=== PATIENT | female | born 1935 | race Caucasian/White ===

== ENCOUNTER → 2016-04-07 | Outpatient (CLI) | payer MEDICARE, OTHER ==
[~2016-04-07] MED LIST: ASPI81TA27 PO; CETI10TA57 PO; FAM20T PO; FERR325T50 PO; FURO20TA PO; INSLISPI SC; INSUINJ2 SC; METO25TA5 PO; MULTCAP45 PO; SIMV80TA73 PO
[2016-04-07 12:15] LABS: DEFINITIVE VIEW TRANSMISSION; Hematocrit 34.6 % (36.0-46.0); Hemoglobin 11.1 g/dL (12.2-16.2); Mean Corpuscular Hgb Conc. 32.1 g/dL (32.0-36.0); Mean Corpuscular Volume 90.4 fL (80.0-100.0); Mean Platelet Volume 11.1 fL (7.4-10.4); Platelet Count (auto) 151 10^3/uL (140-450); Red Cell Distribution Width 17.2 % (11.6-16.0); White Blood Cell 4.9 10^3/uL (4.4-10.8)
[2016-04-07 12:38] LABS: Metamyelocytes % 0; Myelocytes % 0; Promyelocytes % 0; Reactive Lymphocytes 0
[2016-04-07 12:48] LABS: Bilirubin, Direct 0.2 mg/dL (0-0.2); Bilirubin, Total 0.6 mg/dL (0.2-1.0); Total Protein 6.3 g/dL (6.4-8.2)
[2016-04-07 17:55] LABS: Giant Platelets Few; Platelet Estimate Adequate
== END | disposition home or self-care (01) ==
LOC: CHF HDHVI 09:14
PROVIDERS: ATTEND Internal Medicine Cardiovascular Disease
DX: I10 Essential (primary) hypertension (principal); E78.00 Pure hypercholesterolemia, unspecified; K74.1 Hepatic sclerosis; E11.9 Type 2 diabetes mellitus without complications; E55.9 Vitamin D deficiency, unspecified
CPT/HCPCS: 36415; 80048; 80061; 80076; 82306; 83036; 85007; 85027

== ENCOUNTER → 2016-04-21 | Outpatient (CLI) | payer MEDICARE, OTHER ==
[~2016-04-21] MED LIST changes: +INSULIN NPH Isophane (HUMAN) 1unit/0.01ml Susp(100units/ml) SC ONE; +VANCOMYCIN 1GM/250ML D5W 250 ML IV ONE
[2016-04-21 08:30] VITALS: BP 124/61
[2016-04-21 10:50] VITALS: BP 147/73
[2016-04-21 12:43] LABS: Basophils # (auto) 0.1 uL; Basophils % (auto) 2.1 % (0.0-2.0); Eosinophils # (auto) 0.5 uL; Hematocrit 31.8 % (36.0-46.0); Hemoglobin 10.4 g/dL (12.2-16.2); Lymphocytes # (auto) 1.1 uL; Lymphocytes % (auto) 16.9 % (10.0-50.0); Mean Corpuscular Hemoglobin 28.9 pg (28.0-32.0); Mean Corpuscular Hgb Conc. 32.6 g/dL (32.0-36.0); Mean Corpuscular Volume 88.9 fL (80.0-100.0); Mean Platelet Volume 11.4 fL (7.4-10.4); Monocytes # (auto) 0.7 uL; Monocytes % (auto) 10.9 % (0.0-12.0); Neutrophils # (auto) 4.2 uL; Neutrophils % (auto) 63.1 % (37.0-80.0); Platelet Count (auto) 146 10^3/uL (140-450); Red Cell Distribution Width 18.1 % (11.6-16.0); White Blood Cell 6.7 10^3/uL (4.4-10.8)
[2016-04-21 13:31] LABS: BUN/Creatinine Ratio 20.5; Calcium 9.4 mg/dL (8.5-10.1); Potassium 4.3 mmol/L (3.5-5.1)
== END | disposition home or self-care (01) ==
LOC: CHF HDHVI 08:42
PROVIDERS: ATTEND Internal Medicine Cardiovascular Disease
DX: I10 Essential (primary) hypertension (principal); E83.40 Disorders of magnesium metabolism, unspecified; D64.9 Anemia, unspecified
CPT/HCPCS: 36415; 80048; 82962; 83735; 85025; 85049; 93971; 96365; 96372; G0463; J1815

== ENCOUNTER → 2016-04-22 | Outpatient (CLI) | payer MEDICARE, OTHER ==
[~2016-04-22] VITALS: Ht 30.5 cm; Wt 0.5 kg
[~2016-04-22] MED LIST changes: +CYANOCOBALAMIN (B-12) 1000 MCG/1 ML VIAL IM ONE; +CYANOCOBALAMIN (B-12) 1000 MCG/1 ML VIAL ONE; -INSULIN NPH Isophane (HUMAN) 1unit/0.01ml Susp(100units/ml) SC ONE; -VANCOMYCIN 1GM/250ML D5W 250 ML IV ONE
[2016-04-22 09:45] VITALS: BP 101/68
== END | disposition home or self-care (01) ==
LOC: CHF HDHVI 09:49
PROVIDERS: ATTEND Internal Medicine Cardiovascular Disease
DX: I10 Essential (primary) hypertension (principal); E78.00 Pure hypercholesterolemia, unspecified
CPT/HCPCS: 96372; G0463; J3420

== ENCOUNTER → 2016-04-27 | Outpatient (CLI) | payer MEDICARE, OTHER ==
[~2016-04-27] MED LIST changes: -CYANOCOBALAMIN (B-12) 1000 MCG/1 ML VIAL IM ONE; -CYANOCOBALAMIN (B-12) 1000 MCG/1 ML VIAL ONE
[2016-04-27 10:35] VITALS: BP 115/54
[2016-04-27 11:40] VITALS: BP 118/56
[2016-04-27 12:43] LABS: Basophils # (auto) 0.1 uL; Basophils % (auto) 1.6 % (0.0-2.0); Eosinophils # (auto) 0.5 uL; Eosinophils % (auto) 6.7 % (0.0-7.0); Hematocrit 31.6 % (36.0-46.0); Hemoglobin 10.3 g/dL (12.2-16.2); Lymphocytes # (auto) 0.8 uL; Lymphocytes % (auto) 10.6 % (10.0-50.0); Mean Corpuscular Hemoglobin 28.5 pg (28.0-32.0); Mean Corpuscular Hgb Conc. 32.5 g/dL (32.0-36.0); Mean Corpuscular Volume 87.6 fL (80.0-100.0); Mean Platelet Volume 10.4 fL (7.4-10.4); Monocytes # (auto) 0.5 uL; Monocytes % (auto) 6.8 % (0.0-12.0); Neutrophils # (auto) 5.6 uL; Neutrophils % (auto) 74.3 % (37.0-80.0); Platelet Count (auto) 195 10^3/uL (140-450); Red Cell Distribution Width 17.5 % (11.6-16.0); SUSPECT VIEW TRANSMISSION; White Blood Cell 7.6 10^3/uL (4.4-10.8)
[2016-04-27 12:47] LABS: Partial Thromboplastin Time 26.6 sec (22.64-33.71); Prothrombin Time 11.9 sec (9.37-12.3)
[2016-04-27 12:49] LABS: INR 1.16 (0.9-1.15)
[2016-04-27 13:01] LABS: BUN/Creatinine Ratio 24.1; Calcium 9.3 mg/dL (8.5-10.1); Potassium 4.5 mmol/L (3.5-5.1)
== END | disposition home or self-care (01) ==
LOC: Rad HDHVI 10:19
PROVIDERS: ATTEND Internal Medicine Cardiovascular Disease
DX: I10 Essential (primary) hypertension (principal); D64.9 Anemia, unspecified; R79.1 Abnormal coagulation profile
CPT/HCPCS: 36415; 71020; 80048; 85025; 85049; 85610; 85730; G0463

== ENCOUNTER → 2016-04-28 | Day surgery (SDC) | payer MEDICARE, OTHER ==
[~2016-04-28] MED LIST changes: +ACETAMINOPHEN 500 MG TAB PO PRN; +HYDROcodone-ACET 5/325MG TAB PO PRN; +IODIXANOL 320MG/ML 100ML BTL IV ONE; +IOHEXOL 350 MG/ML 100ML IJ ONE; +LIDOCAINE 2%HCL (LOCAL ANESTH.) INJ 20ML MDV ONE; +MIDAZOLAM HCL 1MG/1ML-2 ML VIAL ONE; +SODIUM CHLORIDE 0.9% 1,000 ML IV SCH; +fentaNYL CITRATE 100 MCG/2 ML VL ONE
== END | disposition home or self-care (01) ==
LOC: CATH 12:00
PROVIDERS: ATTEND Internal Medicine Cardiovascular Disease
DX: I27.2 Other secondary pulmonary hypertension (principal); I10 Essential (primary) hypertension; N28.9 Disorder of kidney and ureter, unspecified; N19 Unspecified kidney failure; I50.9 Heart failure, unspecified; Q24.9 Congenital malformation of heart, unspecified; Z90.710 Acquired absence of both cervix and uterus
CPT/HCPCS: 93460; C1760; C1894; J1644; J2250; J3010; J7030; Q9967; 99152

== ENCOUNTER → 2016-05-06 | Outpatient (CLI) | payer MEDICARE, OTHER ==
[~2016-05-06] MED LIST changes: -ACETAMINOPHEN 500 MG TAB PO PRN; -HYDROcodone-ACET 5/325MG TAB PO PRN; -IODIXANOL 320MG/ML 100ML BTL IV ONE; -IOHEXOL 350 MG/ML 100ML IJ ONE; -LIDOCAINE 2%HCL (LOCAL ANESTH.) INJ 20ML MDV ONE; -MIDAZOLAM HCL 1MG/1ML-2 ML VIAL ONE; -SODIUM CHLORIDE 0.9% 1,000 ML IV SCH; -fentaNYL CITRATE 100 MCG/2 ML VL ONE
[2016-05-06 15:30] VITALS: BP 143/67
[2016-05-06 15:45] VITALS: BP 174/101
[2016-05-06 16:05] VITALS: BP 163/91
[2016-05-06 16:25] VITALS: BP 137/65
== END | disposition home or self-care (01) ==
LOC: CHF HDHVI 15:29
PROVIDERS: ATTEND Internal Medicine Cardiovascular Disease
DX: I10 Essential (primary) hypertension (principal); I50.9 Heart failure, unspecified; Z48.02 Encounter for removal of sutures
CPT/HCPCS: G0463

== ENCOUNTER → 2016-05-18 | Outpatient (CLI) | payer MEDICARE, OTHER ==
[~2016-05-18] MED LIST changes: +CYANOCOBALAMIN (B-12) 1000 MCG/1 ML VIAL IM ONE; +CYANOCOBALAMIN (B-12) 1000 MCG/1 ML VIAL ONE
[2016-05-18 10:35] VITALS: BP 107/39
[2016-05-18 12:30] VITALS: BP 97/42
[2016-05-18 17:43] LABS: Hemoglobin 9.9 g/dL (12.2-16.2); Lymphocytes # (auto) 1.1 uL; Monocytes # (auto) 0.4 uL; SUSPECT VIEW TRANSMISSION
[2016-05-18 17:51] LABS: Basophils # (auto) 0.2 uL; Basophils % (auto) 3.1 % (0.0-2.0); DEFINITIVE VIEW TRANSMISSION; Eosinophils # (auto) 0.6 uL; Eosinophils % (auto) 10.7 % (0.0-7.0); Lymphocytes % (auto) 21.5 % (10.0-50.0); Mean Corpuscular Hemoglobin 28.8 pg (28.0-32.0); Mean Corpuscular Hgb Conc. 31.9 g/dL (32.0-36.0); Mean Corpuscular Volume 90.2 fL (80.0-100.0); Mean Platelet Volume 10.3 fL (7.4-10.4); Monocytes % (auto) 7.5 % (0.0-12.0); Neutrophils % (auto) 57.2 % (37.0-80.0); Red Cell Distribution Width 18.1 % (11.6-16.0); White Blood Cell 5.2 10^3/uL (4.4-10.8)
[2016-05-18 18:52] LABS: Anisocytosis Slight; Burr Cells FEW; Giant Platelets Few; Platelet Count (auto) 138 10^3/uL (140-450); Platelet Estimate Decreased
[2016-05-18 18:53] LABS: Ovalocytes FEW
[2016-05-18 18:57] LABS: Calcium 8.4 mg/dL (8.5-10.1); Potassium 4.5 mmol/L (3.5-5.1)
[2016-05-18 19:00] LABS: BUN/Creatinine Ratio 22.9
== END | disposition home or self-care (01) ==
LOC: CHF HDHVI 10:39
PROVIDERS: ATTEND Internal Medicine Cardiovascular Disease
DX: I11.0 Hypertensive heart disease with heart failure (principal); I50.9 Heart failure, unspecified; E11.9 Type 2 diabetes mellitus without complications; D64.9 Anemia, unspecified
CPT/HCPCS: 36415; 80048; 82962; 85025; 96372; G0463; J3420

== ENCOUNTER → 2016-06-02 | Outpatient (CLI) | payer MEDICARE, OTHER ==
[~2016-06-02] VITALS: Ht 30.5 cm; Wt 0.5 kg
[~2016-06-02] MED LIST changes: +FUROSEMIDE 40 MG/4 ML VIAL IV ONE; +FUROSEMIDE 40 MG/4 ML VIAL ONE; +POTASSIUM CHL 10 Meq TABLET PO ONE
[2016-06-02 10:45] VITALS: BP 111/61
[2016-06-02 12:55] VITALS: BP 122/73
[2016-06-02 16:32] LABS: Basophils # (auto) 0.1 uL; Basophils % (auto) 0.9 % (0.0-2.0); Eosinophils # (auto) 0.3 uL; Eosinophils % (auto) 4.8 % (0.0-7.0); Hematocrit 32.2 % (36.0-46.0); Hemoglobin 10.5 g/dL (12.2-16.2); Lymphocytes # (auto) 1.3 uL; Lymphocytes % (auto) 22.4 % (10.0-50.0); Mean Corpuscular Hemoglobin 29.4 pg (28.0-32.0); Mean Corpuscular Hgb Conc. 32.7 g/dL (32.0-36.0); Mean Corpuscular Volume 89.9 fL (80.0-100.0); Mean Platelet Volume 10.6 fL (7.4-10.4); Monocytes # (auto) 0.4 uL; Monocytes % (auto) 5.9 % (0.0-12.0); Neutrophils # (auto) 3.9 uL; Platelet Count (auto) 151 10^3/uL (140-450); Red Cell Distribution Width 18.6 % (11.6-16.0)
[2016-06-02 16:54] LABS: Magnesium 2.2 mg/dL (1.6-2.6)
[2016-06-02 17:57] LABS: Potassium 5.7 mmol/L (3.5-5.1)
== END | disposition home or self-care (01) ==
LOC: CHF HDHVI 10:49
PROVIDERS: ATTEND Internal Medicine Cardiovascular Disease
DX: I50.9 Heart failure, unspecified (principal); E83.40 Disorders of magnesium metabolism, unspecified; D64.9 Anemia, unspecified; Z79.899 Other long term (current) drug therapy
CPT/HCPCS: 36415; 82565; 82962; 83735; 84132; 84520; 85025; 96372; 96374; G0463

== ENCOUNTER → 2016-06-18 | Outpatient (CLI) | payer MEDICARE, OTHER ==
[2016-06-18 10:40] VITALS: BP 125/51
[2016-06-18 12:00] VITALS: BP 124/48
[2016-06-18 12:41] LABS: Basophils # (auto) 0 uL; Basophils % (auto) 0.8 % (0.0-2.0); Eosinophils # (auto) 0.1 uL; Eosinophils % (auto) 2.1 % (0.0-7.0); Hematocrit 33.3 % (36.0-46.0); Hemoglobin 10.7 g/dL (12.2-16.2); Lymphocytes % (auto) 15.6 % (10.0-50.0); Mean Corpuscular Hemoglobin 28.6 pg (28.0-32.0); Mean Corpuscular Hgb Conc. 32.2 g/dL (32.0-36.0); Mean Corpuscular Volume 88.9 fL (80.0-100.0); Mean Platelet Volume 10.5 fL (7.4-10.4); Monocytes # (auto) 0.4 uL; Monocytes % (auto) 6.8 % (0.0-12.0); Neutrophils # (auto) 4.8 uL; Neutrophils % (auto) 74.7 % (37.0-80.0); Platelet Count (auto) 139 10^3/uL (140-450); Red Cell Distribution Width 18.6 % (11.6-16.0); White Blood Cell 6.4 10^3/uL (4.4-10.8)
[2016-06-18 13:05] LABS: Potassium 4.9 mmol/L (3.5-5.1)
== END | disposition home or self-care (01) ==
LOC: CHF HDHVI 10:55
PROVIDERS: ATTEND Internal Medicine Cardiovascular Disease
DX: I50.9 Heart failure, unspecified (principal); Z79.899 Other long term (current) drug therapy; D64.9 Anemia, unspecified
CPT/HCPCS: 36415; 82565; 84132; 84520; 85025; 96372; 96374; G0463

== ENCOUNTER → 2016-06-29 | Outpatient (CLI) | payer MEDICARE, OTHER ==
[~2016-06-29] MED LIST changes: +CHOLESTYRAMINE 4 GM POWDER GT ONE; +CHOLESTYRAMINE 4 GM POWDER ONE; -FUROSEMIDE 40 MG/4 ML VIAL IV ONE; -FUROSEMIDE 40 MG/4 ML VIAL ONE; -POTASSIUM CHL 10 Meq TABLET PO ONE
[2016-06-29 14:30] VITALS: BP 93/51
== END | disposition home or self-care (01) ==
LOC: CHF HDHVI 13:32
PROVIDERS: ATTEND Internal Medicine Cardiovascular Disease
DX: I11.0 Hypertensive heart disease with heart failure (principal); I50.9 Heart failure, unspecified; D64.9 Anemia, unspecified; E11.9 Type 2 diabetes mellitus without complications; R19.7 Diarrhea, unspecified
CPT/HCPCS: 93701; 96372; G0463; J3420

== ENCOUNTER → 2016-07-16 | Outpatient (CLI) | payer MEDICARE, OTHER ==
[~2016-07-16] MED LIST changes: -CHOLESTYRAMINE 4 GM POWDER GT ONE; -CHOLESTYRAMINE 4 GM POWDER ONE
[2016-07-16 10:40] VITALS: BP 110/67
[2016-07-16 11:25] VITALS: BP 102/62
[2016-07-16 16:18] LABS: BUN/Creatinine Ratio 25.4; Calcium 9.1 mg/dL (8.5-10.1); Potassium 4.5 mmol/L (3.5-5.1)
[2016-07-16 21:14] LABS: Basophils # (auto) 0 uL; Basophils % (auto) 0.6 % (0.0-2.0); DEFINITIVE VIEW TRANSMISSION; Eosinophils # (auto) 0.7 uL; Eosinophils % (auto) 10.3 % (0.0-7.0); Hematocrit 31.8 % (36.0-46.0); Hemoglobin 10.5 g/dL (12.2-16.2); Lymphocytes # (auto) 1.2 uL; Lymphocytes % (auto) 19.3 % (10.0-50.0); Mean Corpuscular Hemoglobin 29.6 pg (28.0-32.0); Mean Corpuscular Hgb Conc. 32.9 g/dL (32.0-36.0); Mean Platelet Volume 11.2 fL (7.4-10.4); Monocytes # (auto) 0.5 uL; Monocytes % (auto) 8.4 % (0.0-12.0); Neutrophils # (auto) 3.9 uL; Neutrophils % (auto) 61.4 % (37.0-80.0); Platelet Count (auto) 124 10^3/uL (140-450); Red Cell Distribution Width 19.9 % (11.6-16.0); SUSPECT VIEW TRANSMISSION; White Blood Cell 6.4 10^3/uL (4.4-10.8)
== END | disposition home or self-care (01) ==
LOC: CHF HDHVI 10:39
PROVIDERS: ATTEND Internal Medicine Cardiovascular Disease
DX: I10 Essential (primary) hypertension (principal); D64.9 Anemia, unspecified; E11.9 Type 2 diabetes mellitus without complications
CPT/HCPCS: 36415; 80048; 83036; 85025; 93701; 96372; G0463

== ENCOUNTER → 2016-07-20 | Outpatient (CLI) | payer MEDICARE, OTHER ==
[~2016-07-20] VITALS: Ht 180.3 cm; Wt 73.5 kg
[~2016-07-20] MED LIST changes: -CYANOCOBALAMIN (B-12) 1000 MCG/1 ML VIAL IM ONE; -CYANOCOBALAMIN (B-12) 1000 MCG/1 ML VIAL ONE
[2016-07-20 10:15] VITALS: BP 91/54
[2016-07-20 13:00] VITALS: BP 96/56
== END | disposition home or self-care (01) ==
LOC: CHF HDHVI 10:20
PROVIDERS: ATTEND Internal Medicine Cardiovascular Disease
DX: I27.2 Other secondary pulmonary hypertension (principal); E87.70 Fluid overload, unspecified; N19 Unspecified kidney failure; E11.65 Type 2 diabetes mellitus with hyperglycemia
CPT/HCPCS: 96374; G0463

== ENCOUNTER → 2016-07-29 | Outpatient (CLI) | payer MEDICARE, OTHER ==
[2016-07-29 16:45] LABS: BUN/Creatinine Ratio 30.2; Calcium 9.8 mg/dL (8.5-10.1)
[2016-07-29 16:52] LABS: Potassium 6.4 mmol/L (3.5-5.1)
[2016-07-29 17:18] LABS: Basophils # (auto) 0.1 uL; Basophils % (auto) 1.1 % (0.0-2.0); DEFINITIVE VIEW TRANSMISSION; Eosinophils # (auto) 0.3 uL; Eosinophils % (auto) 4.8 % (0.0-7.0); Hematocrit 34.8 % (36.0-46.0); Hemoglobin 11.2 g/dL (12.2-16.2); Lymphocytes # (auto) 1.7 uL; Mean Corpuscular Hemoglobin 29.1 pg (28.0-32.0); Mean Corpuscular Hgb Conc. 32.2 g/dL (32.0-36.0); Mean Corpuscular Volume 90.6 fL (80.0-100.0); Mean Platelet Volume 10.6 fL (7.4-10.4); Monocytes # (auto) 0.6 uL; Monocytes % (auto) 8.6 % (0.0-12.0); Neutrophils # (auto) 3.9 uL; Neutrophils % (auto) 59.5 % (37.0-80.0); Platelet Count (auto) 174 10^3/uL (140-450); Red Cell Distribution Width 19.1 % (11.6-16.0); White Blood Cell 6.6 10^3/uL (4.4-10.8)
[2016-07-29 18:55] LABS: Anisocytosis Slight; Platelet Estimate Adequate
== END | disposition home or self-care (01) ==
LOC: CHF HDHVI 15:07
PROVIDERS: ATTEND Internal Medicine Cardiovascular Disease
DX: I10 Essential (primary) hypertension (principal)
CPT/HCPCS: 36415; 80048; 83735; 85025

== ENCOUNTER → 2016-08-03 | Outpatient (CLI) | payer MEDICARE, OTHER ==
[~2016-08-03] MED LIST changes: +CYANOCOBALAMIN (B-12) 1000 MCG/1 ML VIAL IM ONE; +CYANOCOBALAMIN (B-12) 1000 MCG/1 ML VIAL ONE
[2016-08-03 14:30] VITALS: BP 139/79
[2016-08-03 15:15] VITALS: BP 107/69
[2016-08-03 16:11] LABS: Basophils # (auto) 0.1 uL; Basophils % (auto) 0.9 % (0.0-2.0); DEFINITIVE VIEW TRANSMISSION; Eosinophils # (auto) 0.2 uL; Eosinophils % (auto) 3.8 % (0.0-7.0); Hematocrit 30.8 % (36.0-46.0); Hemoglobin 10.2 g/dL (12.2-16.2); Lymphocytes # (auto) 1.2 uL; Lymphocytes % (auto) 19.9 % (10.0-50.0); Mean Corpuscular Hemoglobin 29.2 pg (28.0-32.0); Mean Corpuscular Hgb Conc. 33.1 g/dL (32.0-36.0); Mean Corpuscular Volume 88.3 fL (80.0-100.0); Mean Platelet Volume 11.2 fL (7.4-10.4); Monocytes # (auto) 0.5 uL; Monocytes % (auto) 8.5 % (0.0-12.0); Neutrophils # (auto) 4.1 uL; Neutrophils % (auto) 66.9 % (37.0-80.0); Platelet Count (auto) 149 10^3/uL (140-450); SUSPECT VIEW TRANSMISSION; White Blood Cell 6.1 10^3/uL (4.4-10.8)
[2016-08-03 17:04] LABS: Magnesium 2.7 mg/dL (1.6-2.6)
== END | disposition home or self-care (01) ==
LOC: CHF HDHVI 14:31
PROVIDERS: ATTEND Internal Medicine Cardiovascular Disease
DX: E83.40 Disorders of magnesium metabolism, unspecified (principal); E87.6 Hypokalemia; R94.4 Abnormal results of kidney function studies; D64.9 Anemia, unspecified
CPT/HCPCS: 36415; 82565; 82962; 83735; 84132; 84520; 85025; 94620; 96372; G0463

== ENCOUNTER → 2016-08-07 | Outpatient (CLI) | payer MEDICARE, OTHER ==
[~2016-08-07] MED LIST changes: -CYANOCOBALAMIN (B-12) 1000 MCG/1 ML VIAL IM ONE; -CYANOCOBALAMIN (B-12) 1000 MCG/1 ML VIAL ONE
[2016-08-07 11:10] VITALS: BP 100/51
[2016-08-07 11:40] VITALS: BP 100/51
[2016-08-07 16:35] LABS: Urine Bilirubin Negative (Negative); Urine Color Yellow (Yellow); Urine Glucose Normal (Normal); Urine Ketone Negative (Negative); Urine Nitrite Negative (Negative); Urine Urobilinogen Normal (Negative)
[2016-08-07 16:38] LABS: Urine Blood 1+ /uL (Negative)
== END | disposition home or self-care (01) ==
LOC: CHF HDHVI 11:13
PROVIDERS: ATTEND Internal Medicine Cardiovascular Disease
DX: N39.0 Urinary tract infection, site not specified (principal)
CPT/HCPCS: 81003; 87086; G0463

== ENCOUNTER → 2016-08-18 | Outpatient (CLI) | payer MEDICARE, OTHER ==
[~2016-08-18] MED LIST changes: +CYANOCOBALAMIN (B-12) 1000 MCG/1 ML VIAL IM ONE; +CYANOCOBALAMIN (B-12) 1000 MCG/1 ML VIAL ONE
[2016-08-18 15:25] VITALS: BP 116/59
[2016-08-18 16:59] LABS: Basophils # (auto) 0.1 uL; Basophils % (auto) 1.5 % (0.0-2.0); Eosinophils # (auto) 0.4 uL; Hematocrit 32.7 % (36.0-46.0); Hemoglobin 10.9 g/dL (12.2-16.2); Lymphocytes # (auto) 1.9 uL; Mean Corpuscular Hemoglobin 29.6 pg (28.0-32.0); Mean Corpuscular Hgb Conc. 33.2 g/dL (32.0-36.0); Mean Corpuscular Volume 89.1 fL (80.0-100.0); Mean Platelet Volume 10.1 fL (7.4-10.4); Monocytes # (auto) 0.4 uL; Monocytes % (auto) 6.4 % (0.0-12.0); Neutrophils # (auto) 3.1 uL; Neutrophils % (auto) 53.1 % (37.0-80.0); Platelet Count (auto) 139 10^3/uL (140-450); Red Cell Distribution Width 18.3 % (11.6-16.0); White Blood Cell 5.9 10^3/uL (4.4-10.8)
[2016-08-18 17:07] LABS: Calcium 9.5 mg/dL (8.5-10.1); Potassium 4.1 mmol/L (3.5-5.1)
== END | disposition home or self-care (01) ==
LOC: CHF HDHVI 14:01
PROVIDERS: ATTEND Internal Medicine Cardiovascular Disease
DX: I10 Essential (primary) hypertension (principal); D64.9 Anemia, unspecified; E55.9 Vitamin D deficiency, unspecified; N39.0 Urinary tract infection, site not specified
CPT/HCPCS: 36415; 80048; 82306; 85025; 87086; 93701; 96372; G0463

== ENCOUNTER → 2016-09-14 | Outpatient (CLI) | payer MEDICARE, OTHER ==
[~2016-09-14] MED LIST changes: -CYANOCOBALAMIN (B-12) 1000 MCG/1 ML VIAL IM ONE; -CYANOCOBALAMIN (B-12) 1000 MCG/1 ML VIAL ONE; +FUROSEMIDE 100 MG/10ML VIAL IV ONE; +FUROSEMIDE INJECTION 10 ML ONE; +GABA-494 PO; +POTASSIUM CHL 20 Meq TABLET PO ONE; +SODIUM CHLORIDE 0.9% 100 ML IV ONE
[2016-09-14 12:30] VITALS: BP_SYST 108; BP_SYST 120; BP_DIAS 45; BP_DIAS 58
[2016-09-14 13:00] VITALS: BP 127/59
[2016-09-14 17:12] LABS: Basophils # (auto) 0 uL; Basophils % (auto) 0.8 % (0.0-2.0); DEFINITIVE VIEW TRANSMISSION; Eosinophils # (auto) 0.4 uL; Eosinophils % (auto) 7.4 % (0.0-7.0); Hematocrit 31.4 % (36.0-46.0); Hemoglobin 10.9 g/dL (12.2-16.2); Lymphocytes # (auto) 0.7 uL; Lymphocytes % (auto) 13.2 % (10.0-50.0); Mean Corpuscular Hemoglobin 31.7 pg (28.0-32.0); Mean Corpuscular Hgb Conc. 34.6 g/dL (32.0-36.0); Mean Corpuscular Volume 91.5 fL (80.0-100.0); Mean Platelet Volume 13.3 fL (7.4-10.4); Monocytes # (auto) 0.4 uL; Monocytes % (auto) 7.3 % (0.0-12.0); Neutrophils % (auto) 71.3 % (37.0-80.0); Platelet Count (auto) 227 10^3/uL (140-450); Red Cell Distribution Width 19.6 % (11.6-16.0); SUSPECT VIEW TRANSMISSION; White Blood Cell 5.6 10^3/uL (4.4-10.8)
[2016-09-14 17:35] LABS: Albumin 2.6 g/dL (3.4-5.0); BUN/Creatinine Ratio 28.6; Bilirubin, Total 1.3 mg/dL (0.2-1.0); Calcium 8.6 mg/dL (8.5-10.1); Magnesium 2.3 mg/dL (1.6-2.6); Potassium 4.1 mmol/L (3.5-5.1); Total Protein 6.1 g/dL (6.4-8.2)
== END | disposition home or self-care (01) ==
LOC: CHF HDHVI 10:09
PROVIDERS: ATTEND Internal Medicine Cardiovascular Disease
DX: I10 Essential (primary) hypertension (principal); E83.42 Hypomagnesemia; D64.9 Anemia, unspecified
CPT/HCPCS: 36415; 80053; 82962; 83735; 85025; 96365; 96366; 96372; G0463

== ENCOUNTER → 2016-09-15 | Outpatient (CLI) | payer MEDICARE, OTHER ==
[~2016-09-15] MED LIST changes: +CYANOCOBALAMIN (B-12) 1000 MCG/1 ML VIAL IM ONE; +CYANOCOBALAMIN (B-12) 1000 MCG/1 ML VIAL ONE; -POTASSIUM CHL 20 Meq TABLET PO ONE; -SODIUM CHLORIDE 0.9% 100 ML IV ONE; +SODIUM CHLORIDE 0.9% 100 ML IV SCH
[2016-09-15 10:30] VITALS: BP 126/56
[2016-09-15 11:00] VITALS: BP 96/54
[2016-09-15 11:30] VITALS: BP 97/58
[2016-09-15 12:00] VITALS: BP 97/80
[2016-09-15 12:30] VITALS: BP 95/58
[2016-09-15 13:00] VITALS: BP 95/58
== END | disposition home or self-care (01) ==
LOC: CHF HDHVI 09:50
PROVIDERS: ATTEND Internal Medicine Cardiovascular Disease
DX: I50.9 Heart failure, unspecified (principal); I25.10 Atherosclerotic heart disease of native coronary artery without angina pectoris; E11.9 Type 2 diabetes mellitus without complications; D64.9 Anemia, unspecified; N28.9 Disorder of kidney and ureter, unspecified
CPT/HCPCS: 82962; 96365; 96366; 96372; G0463; J1940; J3420

== ENCOUNTER → 2016-09-16 | Outpatient (CLI) | payer MEDICARE, OTHER ==
[~2016-09-16] MED LIST changes: -CYANOCOBALAMIN (B-12) 1000 MCG/1 ML VIAL IM ONE; -CYANOCOBALAMIN (B-12) 1000 MCG/1 ML VIAL ONE; +FUROSEMIDE 40 MG/4 ML VIAL ONE; -FUROSEMIDE INJECTION 10 ML ONE
[2016-09-16 13:00] VITALS: BP 103/55
[2016-09-16 13:30] VITALS: BP 96/53
[2016-09-16 14:00] VITALS: BP 105/68
[2016-09-16 14:30] VITALS: BP 108/64
[2016-09-16 16:15] VITALS: BP 110/64
[2016-09-16 16:27] LABS: Basophils # (auto) 0.1 uL; DEFINITIVE Y; Eosinophils # (auto) 0.5 uL; Eosinophils % (auto) 7.1 % (0.0-7.0); Hemoglobin 11.1 g/dL (12.2-16.2); Lymphocytes # (auto) 1.6 uL; Lymphocytes % (auto) 23.6 % (10.0-50.0); Mean Corpuscular Hgb Conc. 32.5 g/dL (32.0-36.0); Mean Corpuscular Volume 92.2 fL (80.0-100.0); Monocytes # (auto) 0.5 uL; Monocytes % (auto) 7.8 % (0.0-12.0); Neutrophils # (auto) 4.1 uL; Neutrophils % (auto) 60.5 % (37.0-80.0); Platelet Count (auto) 167 10^3/uL (140-450); White Blood Cell 6.9 10^3/uL (4.4-10.8)
[2016-09-16 16:41] LABS: Red Cell Distribution Width 20.2 % (11.6-16.0)
[2016-09-16 16:52] LABS: Albumin 2.6 g/dL (3.4-5.0); BUN/Creatinine Ratio 27.2; Bilirubin, Total 1.1 mg/dL (0.2-1.0); Calcium 9.1 mg/dL (8.5-10.1); Magnesium 2.3 mg/dL (1.6-2.6); Total Protein 6.4 g/dL (6.4-8.2)
[2016-09-16 17:24] LABS: Potassium 6.1 mmol/L (3.5-5.1)
[2016-09-16 17:38] LABS: Anisocytosis Moderate; Burr Cells FEW; Ovalocytes FEW; Platelet Estimate Adequate
== END | disposition home or self-care (01) ==
LOC: CHF HDHVI 12:19
PROVIDERS: ATTEND Internal Medicine Cardiovascular Disease
DX: I10 Essential (primary) hypertension (principal); D64.9 Anemia, unspecified; E83.42 Hypomagnesemia
CPT/HCPCS: 36415; 80053; 82962; 83735; 85025; 96365; 96366; G0463

== ENCOUNTER → 2016-09-17 | Outpatient (CLI) | payer MEDICARE, OTHER ==
[~2016-09-17] MED LIST changes: -FUROSEMIDE 100 MG/10ML VIAL IV ONE; -FUROSEMIDE 40 MG/4 ML VIAL ONE; -SODIUM CHLORIDE 0.9% 100 ML IV SCH; +SODIUM CHLORIDE 0.9% 500 ML IV ONE
[2016-09-17 13:40] VITALS: BP 116/74
== END | disposition home or self-care (01) ==
LOC: CHF HDHVI 09:53
PROVIDERS: ATTEND Internal Medicine Cardiovascular Disease
DX: E87.5 Hyperkalemia (principal)
CPT/HCPCS: 36415; 84132; 96360; 96361; G0463

== ENCOUNTER → 2016-09-18 | Outpatient (CLI) | payer MEDICARE, OTHER ==
[2016-09-18 14:30] VITALS: BP 138/85
[2016-09-18 16:26] LABS: Potassium 3.6 mmol/L (3.5-5.1)
== END | disposition home or self-care (01) ==
LOC: CHF HDHVI 10:03
PROVIDERS: ATTEND Internal Medicine Cardiovascular Disease
DX: E87.5 Hyperkalemia (principal); R94.4 Abnormal results of kidney function studies
CPT/HCPCS: 36415; 82565; 84132; 84520; 96360; 96366; G0463

== ENCOUNTER → 2016-09-21 | Outpatient (CLI) | payer MEDICARE, OTHER ==
[~2016-09-21] MED LIST changes: +CYANOCOBALAMIN (B-12) 1000 MCG/1 ML VIAL IM ONE; +CYANOCOBALAMIN (B-12) 1000 MCG/1 ML VIAL ONE; +FUROSEMIDE 40 MG/4 ML VIAL IV ONE; +FUROSEMIDE 40 MG/4 ML VIAL ONE; -SODIUM CHLORIDE 0.9% 500 ML IV ONE
[2016-09-21 10:46] LABS: Basophils # (auto) 0.1 uL; Basophils % (auto) 0.8 % (0.0-2.0); CONDITION Y; DEFINITIVE SEE PRINTOUT; Eosinophils # (auto) 0.3 uL; Eosinophils % (auto) 5.1 % (0.0-7.0); Hematocrit 31.1 % (36.0-46.0); Hemoglobin 10.3 g/dL (12.2-16.2); Lymphocytes # (auto) 1.4 uL; Lymphocytes % (auto) 20.2 % (10.0-50.0); Mean Corpuscular Hemoglobin 30.1 pg (28.0-32.0); Mean Corpuscular Hgb Conc. 33.3 g/dL (32.0-36.0); Mean Corpuscular Volume 90.4 fL (80.0-100.0); Mean Platelet Volume 11.9 fL (7.4-10.4); Monocytes # (auto) 0.7 uL; Monocytes % (auto) 9.9 % (0.0-12.0); Neutrophils # (auto) 4.3 uL; Platelet Count (auto) 134 10^3/uL (140-450); Red Cell Distribution Width 19.4 % (11.6-16.0); SUSPECT SEE PRINTOUT; White Blood Cell 6.7 10^3/uL (4.4-10.8)
[2016-09-21 11:05] LABS: Potassium 4.1 mmol/L (3.5-5.1)
[2016-09-21 11:11] LABS: Anisocytosis Slight; Burr Cells FEW; Large Platelets FEW; Ovalocytes FEW; Platelet Estimate Decreased
[2016-09-21 12:00] VITALS: BP 114/65
== END | disposition home or self-care (01) ==
LOC: CHF HDHVI 09:29
PROVIDERS: ATTEND Internal Medicine Cardiovascular Disease
DX: R94.4 Abnormal results of kidney function studies (principal); E87.6 Hypokalemia; D64.9 Anemia, unspecified
CPT/HCPCS: 36415; 71100; 82565; 84132; 84520; 85025; 96372; 96374; G0463

== ENCOUNTER → 2016-09-29 | Outpatient (CLI) | payer MEDICARE, OTHER ==
[~2016-09-29] MED LIST changes: -FUROSEMIDE 40 MG/4 ML VIAL IV ONE; -FUROSEMIDE 40 MG/4 ML VIAL ONE
[2016-09-29 10:15] VITALS: BP 116/75
[2016-09-29 11:30] VITALS: BP 136/76
[2016-09-29 17:03] LABS: Potassium 5.4 mmol/L (3.5-5.1)
== END | disposition home or self-care (01) ==
LOC: CHF HDHVI 10:28
PROVIDERS: ATTEND Internal Medicine Cardiovascular Disease
DX: N28.9 Disorder of kidney and ureter, unspecified (principal); I50.9 Heart failure, unspecified; E87.6 Hypokalemia; R94.4 Abnormal results of kidney function studies; R53.83 Other fatigue
CPT/HCPCS: 36415; 82565; 84132; 84520; 93701; 96372; G0463; J3420

== ENCOUNTER → 2016-10-12 | Outpatient (CLI) | payer MEDICARE, OTHER ==
[~2016-10-12] MED LIST changes: +FUROSEMIDE 40 MG/4 ML VIAL IV ONE; +FUROSEMIDE 40 MG/4 ML VIAL ONE
[2016-10-12 12:14] LABS: Basophils # (auto) 0.1 uL; CONDITION Y; DEFINITIVE SEE PRINTOUT; Eosinophils # (auto) 0.8 uL; Eosinophils % (auto) 8.5 % (0.0-7.0); Hematocrit 29.7 % (36.0-46.0); Hemoglobin 9.9 g/dL (12.2-16.2); Lymphocytes % (auto) 11.2 % (10.0-50.0); Mean Corpuscular Hemoglobin 30.3 pg (28.0-32.0); Mean Corpuscular Hgb Conc. 33.4 g/dL (32.0-36.0); Mean Corpuscular Volume 90.5 fL (80.0-100.0); Mean Platelet Volume 10.5 fL (7.4-10.4); Monocytes # (auto) 0.8 uL; Neutrophils # (auto) 6.2 uL; Neutrophils % (auto) 70.3 % (37.0-80.0); Platelet Count (auto) 159 10^3/uL (140-450); Red Cell Distribution Width 18.9 % (11.6-16.0); SUSPECT SEE PRINTOUT; White Blood Cell 8.9 10^3/uL (4.4-10.8)
[2016-10-12 12:36] LABS: Albumin 2.6 g/dL (3.4-5.0); BUN/Creatinine Ratio 32.9; Bilirubin, Total 1.2 mg/dL (0.2-1.0); Calcium 8.9 mg/dL (8.5-10.1); Potassium 3.8 mmol/L (3.5-5.1); Total Protein 6.4 g/dL (6.4-8.2)
== END | disposition home or self-care (01) ==
LOC: CHF HDHVI 09:46
PROVIDERS: ATTEND Internal Medicine Cardiovascular Disease
DX: I10 Essential (primary) hypertension (principal); D64.9 Anemia, unspecified; E11.9 Type 2 diabetes mellitus without complications; Z90.49 Acquired absence of other specified parts of digestive tract
CPT/HCPCS: 36415; 80053; 85025; 96372; 96374; G0463; J1940; J3420

== ENCOUNTER → 2016-10-20 | Outpatient (CLI) | payer MEDICARE, OTHER ==
[~2016-10-20] MED LIST changes: +CEPHALEXIN 250 MG CAP PO ONE; +POTASSIUM CHL 10 Meq TABLET PO ONE
[2016-10-20 10:30] VITALS: BP 107/56
[2016-10-20 12:18] LABS: Basophils # (auto) 0.1 uL; Basophils % (auto) 1.4 % (0.0-2.0); CONDITION Y; Eosinophils # (auto) 0.5 uL; Eosinophils % (auto) 9.5 % (0.0-7.0); Hematocrit 31.5 % (36.0-46.0); Hemoglobin 10.5 g/dL (12.2-16.2); Lymphocytes # (auto) 0.9 uL; Lymphocytes % (auto) 18.5 % (10.0-50.0); Mean Corpuscular Hemoglobin 29.9 pg (28.0-32.0); Mean Corpuscular Hgb Conc. 33.3 g/dL (32.0-36.0); Mean Corpuscular Volume 89.7 fL (80.0-100.0); Mean Platelet Volume 10.6 fL (7.4-10.4); Monocytes # (auto) 0.4 uL; Monocytes % (auto) 8.7 % (0.0-12.0); Neutrophils # (auto) 3.1 uL; Neutrophils % (auto) 61.9 % (37.0-80.0); Platelet Count (auto) 210 10^3/uL (140-450); Red Cell Distribution Width 18.1 % (11.6-16.0); SUSPECT SEE PRINTOUT
== END | disposition home or self-care (01) ==
LOC: CHF HDHVI 09:27
PROVIDERS: ATTEND Internal Medicine Cardiovascular Disease
DX: D64.9 Anemia, unspecified (principal); I11.0 Hypertensive heart disease with heart failure; I50.9 Heart failure, unspecified; E11.9 Type 2 diabetes mellitus without complications; L03.90 Cellulitis, unspecified; K21.9 Gastro-esophageal reflux disease without esophagitis
CPT/HCPCS: 36415; 85025; 96372; 96374; G0463; J1940; J3420

== ENCOUNTER → 2016-10-27 | Outpatient (CLI) | payer MEDICARE, OTHER ==
[~2016-10-27] MED LIST changes: -CEPHALEXIN 250 MG CAP PO ONE; -FUROSEMIDE 40 MG/4 ML VIAL IV ONE; -FUROSEMIDE 40 MG/4 ML VIAL ONE; -POTASSIUM CHL 10 Meq TABLET PO ONE
[2016-10-27 10:00] VITALS: BP 121/62
[2016-10-27 10:30] VITALS: BP 120/60
[2016-10-27 12:20] LABS: Basophils # (auto) 0.1 uL; Basophils % (auto) 1.1 % (0.0-2.0); CONDITION Y; Eosinophils # (auto) 0.6 uL; Eosinophils % (auto) 11.2 % (0.0-7.0); Hematocrit 30.6 % (36.0-46.0); Hemoglobin 10.2 g/dL (12.2-16.2); Lymphocytes # (auto) 1.5 uL; Lymphocytes % (auto) 26.1 % (10.0-50.0); Mean Corpuscular Hgb Conc. 33.3 g/dL (32.0-36.0); Mean Corpuscular Volume 89.9 fL (80.0-100.0); Mean Platelet Volume 10.8 fL (7.4-10.4); Monocytes # (auto) 0.5 uL; Monocytes % (auto) 8.8 % (0.0-12.0); Neutrophils % (auto) 52.8 % (37.0-80.0); Platelet Count (auto) 196 10^3/uL (140-450); Red Cell Distribution Width 17.9 % (11.6-16.0); White Blood Cell 5.7 10^3/uL (4.4-10.8)
[2016-10-27 12:38] LABS: BUN/Creatinine Ratio 35.6; Calcium 8.7 mg/dL (8.5-10.1); Magnesium 2.5 mg/dL (1.6-2.6)
== END | disposition home or self-care (01) ==
LOC: CHF HDHVI 10:08
PROVIDERS: ATTEND Internal Medicine Cardiovascular Disease
DX: I10 Essential (primary) hypertension (principal); E83.42 Hypomagnesemia; D64.9 Anemia, unspecified
CPT/HCPCS: 36415; 80048; 83735; 85025; 96372; G0463; J3420

== ENCOUNTER → 2016-11-03 | Outpatient (CLI) | payer MEDICARE, OTHER ==
[~2016-11-03] VITALS: Ht 30.5 cm; Wt 0.5 kg
[~2016-11-03] MED LIST changes: +DOBUTamine 1000MCG/ML 250 ML IV ONE; +FUROSEMIDE INJECTION 10 ML ONE; +FUROSEMIDE INJECTION 100 MG in SODIUM CHL 0.9% 100 ML IV SCH; +RIOC1TAB5 PO
[2016-11-03] MEDS: SODIUM CHLORIDE 0.9% 100 ML IV SCH ×2 (11:40→12:30)
[2016-11-03 15:20] VITALS: BP 115/55
[2016-11-03 17:22] LABS: Potassium 3.8 mmol/L (3.5-5.1)
== END | disposition home or self-care (01) ==
LOC: CHF HDHVI 10:57
PROVIDERS: ATTEND Internal Medicine Cardiovascular Disease
DX: R94.4 Abnormal results of kidney function studies (principal); E87.6 Hypokalemia
CPT/HCPCS: 36415; 82565; 84132; 84520; 96365; 96366; 96367; 96372; G0463

== ENCOUNTER → 2016-11-16 | Outpatient (CLI) | payer MEDICARE, OTHER ==
[~2016-11-16] MED LIST changes: -CYANOCOBALAMIN (B-12) 1000 MCG/1 ML VIAL IM ONE; -CYANOCOBALAMIN (B-12) 1000 MCG/1 ML VIAL ONE; -DOBUTamine 1000MCG/ML 250 ML IV ONE; -FUROSEMIDE INJECTION 10 ML ONE; -FUROSEMIDE INJECTION 100 MG in SODIUM CHL 0.9% 100 ML IV SCH
== END | disposition home or self-care (01) ==
LOC: CHF HDHVI 10:18
PROVIDERS: ATTEND Internal Medicine Cardiovascular Disease
DX: I27.0 Primary pulmonary hypertension (principal); I50.9 Heart failure, unspecified; Q24.9 Congenital malformation of heart, unspecified; J18.9 Pneumonia, unspecified organism; Z95.1 Presence of aortocoronary bypass graft; Z95.5 Presence of coronary angioplasty implant and graft
CPT/HCPCS: 82962; G0463

== ENCOUNTER → 2016-11-20 | Outpatient (CLI) | payer MEDICARE, OTHER ==
[2016-11-20 12:55] VITALS: BP 119/62
[2016-11-20 16:45] LABS: BUN/Creatinine Ratio 38.8; Calcium 9.3 mg/dL (8.5-10.1); Magnesium 2.6 mg/dL (1.6-2.6); Potassium 4.2 mmol/L (3.5-5.1)
== END | disposition home or self-care (01) ==
LOC: CHF HDHVI 10:56
PROVIDERS: ATTEND Internal Medicine Cardiovascular Disease
DX: I27.0 Primary pulmonary hypertension (principal); E11.9 Type 2 diabetes mellitus without complications; E83.42 Hypomagnesemia; D64.9 Anemia, unspecified; E87.70 Fluid overload, unspecified
CPT/HCPCS: 36415; 80048; 83036; 83735; 93701; 94620; G0463

== ENCOUNTER → 2016-11-26 | Outpatient (CLI) | payer MEDICARE, OTHER ==
[2016-11-26 10:40] VITALS: BP 100/32
[2016-11-26 11:45] VITALS: BP 111/67
[2016-11-26 16:34] LABS: Potassium 3.9 mmol/L (3.5-5.1)
== END | disposition home or self-care (01) ==
LOC: CHF HDHVI 10:42
PROVIDERS: ATTEND Internal Medicine Cardiovascular Disease
DX: E87.6 Hypokalemia (principal); R94.4 Abnormal results of kidney function studies; I11.9 Hypertensive heart disease without heart failure; E11.21 Type 2 diabetes mellitus with diabetic nephropathy; N19 Unspecified kidney failure; D64.9 Anemia, unspecified
CPT/HCPCS: 36415; 82565; 82962; 84132; 84520; G0463

== ENCOUNTER → 2016-12-08 | Outpatient (CLI) | payer MEDICARE, OTHER ==
[~2016-12-08] MED LIST changes: +CYANOCOBALAMIN (B-12) 1000 MCG/1 ML VIAL IM ONE; +CYANOCOBALAMIN (B-12) 1000 MCG/1 ML VIAL ONE; +LIDOCAINE 1% HCL (LOCAL ANESTH.) INJ 20ML MDV IJ ONE; +LIDOCAINE 1% HCL (LOCAL ANESTH.) INJ 20ML MDV ONE
[2016-12-08 10:00] VITALS: BP 102/49
[2016-12-08 12:00] VITALS: BP 105/48
== END | disposition home or self-care (01) ==
LOC: CHF HDHVI 10:08
PROVIDERS: ATTEND Internal Medicine Cardiovascular Disease
DX: I50.9 Heart failure, unspecified (principal); R89.9 Unspecified abnormal finding in specimens from other organs, systems and tissues; I25.10 Atherosclerotic heart disease of native coronary artery without angina pectoris; Z95.1 Presence of aortocoronary bypass graft
CPT/HCPCS: 82962; 87205; G0463; J2001; J3420

== ENCOUNTER → 2016-12-10 | Outpatient (CLI) | payer MEDICARE, OTHER ==
[~2016-12-10] MED LIST changes: -CYANOCOBALAMIN (B-12) 1000 MCG/1 ML VIAL IM ONE; -CYANOCOBALAMIN (B-12) 1000 MCG/1 ML VIAL ONE; -LIDOCAINE 1% HCL (LOCAL ANESTH.) INJ 20ML MDV IJ ONE; -LIDOCAINE 1% HCL (LOCAL ANESTH.) INJ 20ML MDV ONE
[2016-12-10 10:05] VITALS: BP 111/52
[2016-12-10 11:00] VITALS: BP 111/54
== END | disposition home or self-care (01) ==
LOC: CHF HDHVI 10:17
PROVIDERS: ATTEND Internal Medicine Cardiovascular Disease
DX: I50.9 Heart failure, unspecified (principal); E87.70 Fluid overload, unspecified; Z95.1 Presence of aortocoronary bypass graft; S89.91XD Unspecified injury of right lower leg, subsequent encounter; X58.XXXD Exposure to other specified factors, subsequent encounter
CPT/HCPCS: G0463

== ENCOUNTER → 2016-12-15 | Outpatient (CLI) | payer MEDICARE, OTHER ==
[~2016-12-15] MED LIST changes: +MAGNESIUM CITRATE SOLUTION 300 ML BTL ONE; +MAGNESIUM CITRATE SOLUTION 300 ML BTL PO ONE
[2016-12-15 10:10] VITALS: BP 112/51
[2016-12-15 11:15] VITALS: BP 112/60
[2016-12-15 16:54] LABS: Potassium 4.2 mmol/L (3.5-5.1)
== END | disposition home or self-care (01) ==
LOC: CHF HDHVI 10:39
PROVIDERS: ATTEND Internal Medicine Cardiovascular Disease
DX: I50.9 Heart failure, unspecified (principal); E87.6 Hypokalemia; R94.4 Abnormal results of kidney function studies; N18.9 Chronic kidney disease, unspecified; R53.83 Other fatigue
CPT/HCPCS: 36415; 82565; 82962; 84132; 84520; G0463

== ENCOUNTER → 2016-12-17 | Outpatient (CLI) | payer MEDICARE, OTHER ==
[~2016-12-17] MED LIST changes: -MAGNESIUM CITRATE SOLUTION 300 ML BTL ONE; -MAGNESIUM CITRATE SOLUTION 300 ML BTL PO ONE; +SODIUM CHLORIDE 0.9% 500 ML IV SCH
[2016-12-17 11:55] VITALS: BP 120/55
[2016-12-17 12:30] VITALS: BP 107/52
[2016-12-17 13:00] VITALS: BP 116/58
[2016-12-17 13:30] VITALS: BP 111/55
[2016-12-17 14:30] VITALS: BP 126/62
== END | disposition home or self-care (01) ==
LOC: CHF HDHVI 11:13
PROVIDERS: ATTEND Internal Medicine Cardiovascular Disease
DX: I27.2 Other secondary pulmonary hypertension (principal); E11.9 Type 2 diabetes mellitus without complications; D64.9 Anemia, unspecified; I12.9 Hypertensive chronic kidney disease with stage 1 through stage 4 chronic kidney disease, or unspecified chronic kidney disease; N18.9 Chronic kidney disease, unspecified; E78.5 Hyperlipidemia, unspecified
CPT/HCPCS: 82962; 96360; 96361; G0463

== ENCOUNTER → 2016-12-21 | Outpatient (CLI) | payer MEDICARE, OTHER ==
[~2016-12-21] MED LIST changes: -SODIUM CHLORIDE 0.9% 500 ML IV SCH
[2016-12-21 10:35] VITALS: BP 105/51
[2016-12-21 11:45] VITALS: BP 112/57
[2016-12-21 16:56] LABS: Potassium 3.9 mmol/L (3.5-5.1)
== END | disposition home or self-care (01) ==
LOC: CHF HDHVI 10:44
PROVIDERS: ATTEND Internal Medicine Cardiovascular Disease
DX: E87.6 Hypokalemia (principal); R94.4 Abnormal results of kidney function studies; I50.9 Heart failure, unspecified
CPT/HCPCS: 36415; 82565; 84132; 84520; 93701; G0463

== ENCOUNTER → 2016-12-28 | Outpatient (CLI) | payer MEDICARE, OTHER ==
[~2016-12-28] MED LIST changes: +CYANOCOBALAMIN (B-12) 1000 MCG/1 ML VIAL IM ONE; +CYANOCOBALAMIN (B-12) 1000 MCG/1 ML VIAL ONE
[2016-12-28 08:30] VITALS: BP 107/43
[2016-12-28 10:05] VITALS: BP 107/43
[2016-12-28 10:13] VITALS: BP 116/63
[2016-12-28 12:25] LABS: Basophils # (auto) 0.2 uL; Basophils % (auto) 2.5 % (0.0-2.0); Eosinophils # (auto) 0.5 uL; Hematocrit 29.4 % (36.0-46.0); Hemoglobin 9.6 g/dL (12.2-16.2); Lymphocytes # (auto) 0.9 uL; Lymphocytes % (auto) 14.5 % (10.0-50.0); Mean Corpuscular Hemoglobin 29.9 pg (28.0-32.0); Mean Corpuscular Hgb Conc. 32.6 g/dL (32.0-36.0); Mean Corpuscular Volume 91.7 fL (80.0-100.0); Mean Platelet Volume 9.5 fL (6.9-10.8); Monocytes # (auto) 0.4 uL; Monocytes % (auto) 7.2 % (0.0-12.0); Neutrophils # (auto) 4.2 uL; Neutrophils % (auto) 67.8 % (37.0-80.0); Nucleated Red Blood Cells % 0.2 %; Platelet Count (auto) 136 10^3/uL (140-450); Red Cell Distribution Width 18.2 % (11.8-14.3); White Blood Cell 6.2 10^3/uL (4.4-10.8)
[2016-12-28 12:29] LABS: BUN/Creatinine Ratio 39.1; Calcium 9.2 mg/dL (8.5-10.1); Magnesium 2.1 mg/dL (1.6-2.6); Potassium 4.3 mmol/L (3.5-5.1)
== END | disposition home or self-care (01) ==
LOC: Rad HDHVI 07:52
PROVIDERS: ATTEND Internal Medicine Cardiovascular Disease
DX: I27.0 Primary pulmonary hypertension (principal); E11.9 Type 2 diabetes mellitus without complications; E83.42 Hypomagnesemia; D51.9 Vitamin B12 deficiency anemia, unspecified; D64.9 Anemia, unspecified; E78.5 Hyperlipidemia, unspecified; R53.83 Other fatigue
CPT/HCPCS: 36415; 80048; 82607; 82962; 83735; 85025; 93306; 96372; G0463; J3420

== ENCOUNTER → 2017-01-12 | Outpatient (CLI) | payer MEDICARE, OTHER ==
[~2017-01-12] VITALS: Ht 30.5 cm; Wt 69.1 kg
[~2017-01-12] MED LIST changes: -CYANOCOBALAMIN (B-12) 1000 MCG/1 ML VIAL IM ONE; +CYANOCOBALAMIN (B-12) 1000 MCG/1 ML VIAL SUBCUT SCH
[2017-01-12 10:00] VITALS: BP 103/46
[2017-01-12 12:15] VITALS: BP 111/53
[2017-01-12 16:35] LABS: Basophils # (auto) 0.1 uL; Eosinophils # (auto) 0.7 uL; Hematocrit 27.7 % (36.0-46.0); Hemoglobin 9.5 g/dL (12.2-16.2); Lymphocytes # (auto) 0.7 uL; Mean Corpuscular Hemoglobin 31.2 pg (28.0-32.0); Mean Corpuscular Hgb Conc. 34.1 g/dL (32.0-36.0); Mean Corpuscular Volume 91.3 fL (80.0-100.0); Mean Platelet Volume 10.1 fL (6.9-10.8); Monocytes # (auto) 0.9 uL; Monocytes % (auto) 8.2 % (0.0-12.0); Neutrophils # (auto) 8.1 uL; Neutrophils % (auto) 76.8 % (37.0-80.0); Platelet Count (auto) 114 10^3/uL (140-450); Red Cell Distribution Width 17.7 % (11.8-14.3); White Blood Cell 10.5 10^3/uL (4.4-10.8)
[2017-01-12 16:43] LABS: Potassium 3.4 mmol/L (3.5-5.1)
[2017-01-12 16:47] LABS: B-Type Natriuretic Peptide 213.38 pg/mL (0-100)
[2017-01-12 17:07] LABS: Temperature: 21.9 C (20.0-25.0)
== END | disposition home or self-care (01) ==
LOC: LAB 10:40
PROVIDERS: ATTEND Internal Medicine Cardiovascular Disease
DX: E87.6 Hypokalemia (principal); R94.4 Abnormal results of kidney function studies; I50.9 Heart failure, unspecified; D64.9 Anemia, unspecified; J98.8 Other specified respiratory disorders; J18.9 Pneumonia, unspecified organism; Z95.1 Presence of aortocoronary bypass graft
CPT/HCPCS: 36415; 82565; 83880; 84132; 84520; 85025; 94620; 96372; G0463; J1642; J3420

== ENCOUNTER → 2017-01-19 | Outpatient (CLI) | payer MEDICARE, OTHER ==
[~2017-01-19] MED LIST changes: +CYANOCOBALAMIN (B-12) 1000 MCG/1 ML VIAL IM ONE; -CYANOCOBALAMIN (B-12) 1000 MCG/1 ML VIAL SUBCUT SCH; +FUROSEMIDE 40 MG/4 ML VIAL IV ONE; +FUROSEMIDE 40 MG/4 ML VIAL ONE; +POTASSIUM CHL 20 Meq TABLET PO ONE
[2017-01-19 09:55] VITALS: BP 108/46
[2017-01-19 11:50] VITALS: BP 124/51
[2017-01-19 13:28] LABS: Basophils # (auto) 0.1 uL; Basophils % (auto) 1.4 % (0.0-2.0); Eosinophils # (auto) 0.7 uL; Eosinophils % (auto) 10.4 % (0.0-7.0); Hematocrit 28.3 % (36.0-46.0); Hemoglobin 9.3 g/dL (12.2-16.2); Lymphocytes # (auto) 0.9 uL; Lymphocytes % (auto) 13.9 % (10.0-50.0); Mean Corpuscular Hemoglobin 30.1 pg (28.0-32.0); Mean Corpuscular Hgb Conc. 32.7 g/dL (32.0-36.0); Mean Platelet Volume 10.1 fL (6.9-10.8); Monocytes # (auto) 0.5 uL; Monocytes % (auto) 8.3 % (0.0-12.0); Neutrophils # (auto) 4.3 uL; Nucleated Red Blood Cells % 0.2 %; Platelet Count (auto) 118 10^3/uL (140-450); Red Cell Distribution Width 18.3 % (11.8-14.3); White Blood Cell 6.5 10^3/uL (4.4-10.8)
[2017-01-19 14:24] LABS: BUN/Creatinine Ratio 35.8; Magnesium 2.2 mg/dL (1.6-2.6); Potassium 3.8 mmol/L (3.5-5.1)
== END | disposition home or self-care (01) ==
LOC: CHF HDHVI 09:58
PROVIDERS: ATTEND Internal Medicine Cardiovascular Disease
DX: I11.0 Hypertensive heart disease with heart failure (principal); I50.9 Heart failure, unspecified; D64.9 Anemia, unspecified; E55.9 Vitamin D deficiency, unspecified; J18.9 Pneumonia, unspecified organism
CPT/HCPCS: 36415; 80048; 82306; 82962; 83735; 85025; 93701; 96372; 96374; G0463; J1642; J1940; J3420

== ENCOUNTER → 2017-01-26 | Outpatient (CLI) | payer MEDICARE, OTHER ==
[~2017-01-26] MED LIST changes: -CYANOCOBALAMIN (B-12) 1000 MCG/1 ML VIAL IM ONE; -CYANOCOBALAMIN (B-12) 1000 MCG/1 ML VIAL ONE; -FUROSEMIDE 40 MG/4 ML VIAL IV ONE; -FUROSEMIDE 40 MG/4 ML VIAL ONE; -POTASSIUM CHL 20 Meq TABLET PO ONE
[2017-01-26 09:45] VITALS: BP 117/57
[2017-01-26 11:00] VITALS: BP 118/54
[2017-01-26 12:36] LABS: Basophils # (auto) 0.1 uL; Basophils % (auto) 2.2 % (0.0-2.0); Eosinophils # (auto) 0.8 uL; Eosinophils % (auto) 13.5 % (0.0-7.0); Hematocrit 29.8 % (36.0-46.0); Hemoglobin 9.6 g/dL (12.2-16.2); Lymphocytes # (auto) 1.2 uL; Mean Corpuscular Hemoglobin 29.7 pg (28.0-32.0); Mean Corpuscular Hgb Conc. 32.4 g/dL (32.0-36.0); Mean Corpuscular Volume 91.7 fL (80.0-100.0); Mean Platelet Volume 9.7 fL (6.9-10.8); Monocytes # (auto) 0.5 uL; Monocytes % (auto) 7.7 % (0.0-12.0); Neutrophils # (auto) 3.4 uL; Neutrophils % (auto) 56.6 % (37.0-80.0); Nucleated Red Blood Cells % 0.1 %; Platelet Count (auto) 122 10^3/uL (140-450); Red Cell Distribution Width 18.6 % (11.8-14.3); White Blood Cell 5.9 10^3/uL (4.4-10.8)
[2017-01-26 12:38] LABS: Albumin 3.1 g/dL (3.4-5.0); BUN/Creatinine Ratio 48.1; Bilirubin, Total 0.4 mg/dL (0.2-1.0); Calcium 9.5 mg/dL (8.5-10.1); Potassium 3.5 mmol/L (3.5-5.1); Total Protein 7.3 g/dL (6.4-8.2)
[2017-01-26 14:50] LABS: Reticulocyte Count 2.14 % (0.5-1.5)
== END | disposition home or self-care (01) ==
LOC: CHF HDHVI 10:18
PROVIDERS: ATTEND Internal Medicine Cardiovascular Disease
DX: N18.4 Chronic kidney disease, stage 4 (severe) (principal); E55.9 Vitamin D deficiency, unspecified; D63.1 Anemia in chronic kidney disease; R79.89 Other specified abnormal findings of blood chemistry
CPT/HCPCS: 36415; 80053; 82043; 82306; 82570; 82962; 83036; 83970; 85025; 85045; G0463; J1642

== ENCOUNTER → 2017-02-23 | Outpatient (CLI) | payer MEDICARE, OTHER ==
[~2017-02-23] MED LIST changes: +CYANOCOBALAMIN (B-12) 1000 MCG/1 ML VIAL IM ONE
[2017-02-23 11:05] VITALS: BP 129/63
[2017-02-23 12:15] VITALS: BP 118/53
== END | disposition home or self-care (01) ==
LOC: CHF HDHVI 11:13
PROVIDERS: ATTEND Internal Medicine Cardiovascular Disease
DX: I50.9 Heart failure, unspecified (principal); N19 Unspecified kidney failure
CPT/HCPCS: 93701; 96372; G0463

== ENCOUNTER → 2017-03-02 | Outpatient (CLI) | payer MEDICARE, OTHER ==
[~2017-03-02] VITALS: Ht 30.5 cm; Wt 0.5 kg
[~2017-03-02] MED LIST changes: -CYANOCOBALAMIN (B-12) 1000 MCG/1 ML VIAL IM ONE
[2017-03-02 10:20] VITALS: BP 111/58
[2017-03-02 11:15] VITALS: BP 104/55
[2017-03-02 16:18] LABS: Basophils # (auto) 0.1 uL; Basophils % (auto) 2.2 % (0.0-2.0); Eosinophils # (auto) 0.5 uL; Eosinophils % (auto) 10.5 % (0.0-7.0); Hematocrit 29.6 % (36.0-46.0); Lymphocytes % (auto) 20.1 % (10.0-50.0); Mean Corpuscular Hemoglobin 29.9 pg (28.0-32.0); Mean Corpuscular Hgb Conc. 33.6 g/dL (32.0-36.0); Mean Corpuscular Volume 88.8 fL (80.0-100.0); Mean Platelet Volume 10.5 fL (6.9-10.8); Monocytes # (auto) 0.5 uL; Monocytes % (auto) 10.3 % (0.0-12.0); Neutrophils # (auto) 2.9 uL; Neutrophils % (auto) 56.9 % (37.0-80.0); Nucleated Red Blood Cells % 0.1 %; Platelet Count (auto) 136 10^3/uL (140-450); Red Cell Distribution Width 17.6 % (11.8-14.3); White Blood Cell 5.1 10^3/uL (4.4-10.8)
[2017-03-02 16:45] LABS: Albumin 3.2 g/dL (3.4-5.0); BUN/Creatinine Ratio 35.2; Bilirubin, Total 0.5 mg/dL (0.2-1.0); Calcium 8.9 mg/dL (8.5-10.1); Potassium 4.2 mmol/L (3.5-5.1); Total Protein 7.2 g/dL (6.4-8.2)
[2017-03-02 16:53] LABS: Reticulocyte Count 1.24 % (0.5-1.5)
== END | disposition home or self-care (01) ==
LOC: CHF HDHVI 10:19
PROVIDERS: ATTEND Internal Medicine Cardiovascular Disease
DX: N18.4 Chronic kidney disease, stage 4 (severe) (principal); D63.1 Anemia in chronic kidney disease; E55.9 Vitamin D deficiency, unspecified; Z95.1 Presence of aortocoronary bypass graft
CPT/HCPCS: 36415; 80053; 82306; 83970; 85025; 85045; G0463; J1642

== ENCOUNTER → 2017-03-10 | Outpatient (CLI) | payer MEDICARE, OTHER ==
[~2017-03-10] MED LIST changes: +AMLO5TAB2 PO; +FERR1TAB5 PO; -GABA-494 PO; +GABA100C9 PO; +GABA300C10 PO; +LISI10TA6 PO; +SIMV-13 PO
== END | disposition home or self-care (01) ==
LOC: Rad HDHVI 09:00
PROVIDERS: ATTEND Internal Medicine Cardiovascular Disease
DX: M85.89 Other specified disorders of bone density and structure, multiple sites (principal)
CPT/HCPCS: 77078

== ENCOUNTER → 2017-04-01 | Outpatient (CLI) | payer MEDICARE, OTHER ==
[~2017-04-01] VITALS: Ht 30.5 cm; Wt 0.5 kg
[~2017-04-01] MED LIST changes: +CYANOCOBALAMIN (B-12) 1000 MCG/1 ML VIAL ONE; +CYANOCOBALAMIN (B-12) 1000 MCG/1 ML VIAL SUBCUT ONE
[2017-04-01 11:30] VITALS: BP 125/61
[2017-04-01 12:30] VITALS: BP 130/63
[2017-04-01 16:04] LABS: Basophils # (auto) 0.1 uL; Basophils % (auto) 2.2 % (0.0-2.0); Eosinophils # (auto) 0.3 uL; Eosinophils % (auto) 6.2 % (0.0-7.0); Hematocrit 28.5 % (36.0-46.0); Hemoglobin 9.3 g/dL (12.2-16.2); Lymphocytes # (auto) 0.8 uL; Lymphocytes % (auto) 16.1 % (10.0-50.0); Mean Corpuscular Hemoglobin 29.2 pg (28.0-32.0); Mean Corpuscular Hgb Conc. 32.6 g/dL (32.0-36.0); Mean Corpuscular Volume 89.6 fL (80.0-100.0); Monocytes # (auto) 0.4 uL; Monocytes % (auto) 7.9 % (0.0-12.0); Neutrophils # (auto) 3.5 uL; Neutrophils % (auto) 67.6 % (37.0-80.0); Nucleated Red Blood Cells % 0.2 %; Platelet Count (auto) 102 10^3/uL (140-450); Red Blood Cells 3.18 10^6/uL (4.0-5.20); Red Cell Distribution Width 18.6 % (11.8-14.3); White Blood Cell 5.1 10^3/uL (4.4-10.8)
[2017-04-01 16:05] LABS: BUN/Creatinine Ratio 41.4; Calcium 8.9 mg/dL (8.5-10.1); Potassium 4.4 mmol/L (3.5-5.1)
== END | disposition home or self-care (01) ==
LOC: CHF HDHVI 11:45
PROVIDERS: ATTEND Internal Medicine Cardiovascular Disease
DX: D64.9 Anemia, unspecified (principal); I10 Essential (primary) hypertension; E11.9 Type 2 diabetes mellitus without complications; R53.83 Other fatigue
CPT/HCPCS: 36415; 80048; 85025; 96372; G0463; J1642; J3420

== ENCOUNTER → 2017-04-16 | Outpatient (CLI) | payer MEDICARE, OTHER ==
[~2017-04-16] MED LIST changes: -CYANOCOBALAMIN (B-12) 1000 MCG/1 ML VIAL ONE; -CYANOCOBALAMIN (B-12) 1000 MCG/1 ML VIAL SUBCUT ONE
[2017-04-16 12:38] VITALS: BP 122/48
[2017-04-16 16:18] VITALS: BP 117/47
[2017-04-16 16:20] LABS: Basophils # (auto) 0.1 uL; Basophils % (auto) 1.9 % (0.0-2.0); Eosinophils # (auto) 0.3 uL; Eosinophils % (auto) 7.6 % (0.0-7.0); Hematocrit 27.8 % (36.0-46.0); Hemoglobin 9.2 g/dL (12.2-16.2); Lymphocytes # (auto) 0.6 uL; Lymphocytes % (auto) 13.5 % (10.0-50.0); Mean Corpuscular Hemoglobin 29.6 pg (28.0-32.0); Mean Corpuscular Volume 89.6 fL (80.0-100.0); Monocytes # (auto) 0.4 uL; Neutrophils # (auto) 2.9 uL; Nucleated Red Blood Cells % 0.1 %; Platelet Count (auto) 101 10^3/uL (140-450); Red Cell Distribution Width 18.2 % (11.8-14.3); White Blood Cell 4.2 10^3/uL (4.4-10.8)
[2017-04-16 16:36] LABS: Albumin 3.1 g/dL (3.4-5.0); BUN/Creatinine Ratio 43.1; Bilirubin, Total 0.3 mg/dL (0.2-1.0); Calcium 8.6 mg/dL (8.5-10.1); Magnesium 2.3 mg/dL (1.6-2.6); Potassium 4.1 mmol/L (3.5-5.1); Total Protein 6.8 g/dL (6.4-8.2)
== END | disposition home or self-care (01) ==
LOC: CHF HDHVI 11:37
PROVIDERS: ATTEND Internal Medicine Cardiovascular Disease
DX: I10 Essential (primary) hypertension (principal); E83.42 Hypomagnesemia; D64.9 Anemia, unspecified; D51.9 Vitamin B12 deficiency anemia, unspecified; E11.9 Type 2 diabetes mellitus without complications; I27.21 Secondary pulmonary arterial hypertension; E87.70 Fluid overload, unspecified
CPT/HCPCS: 36415; 80053; 82607; 82962; 83735; 85025; G0463; J1642

== ENCOUNTER → 2017-04-29 | Outpatient (CLI) | payer MEDICARE, OTHER ==
[~2017-04-29] MED LIST changes: +CYANOCOBALAMIN (B-12) 1000 MCG/1 ML VIAL IM ONE; +CYANOCOBALAMIN (B-12) 1000 MCG/1 ML VIAL ONE
[2017-04-29 12:30] VITALS: BP 114/46
[2017-04-29 13:45] VITALS: BP 113/50
== END | disposition home or self-care (01) ==
LOC: CHF HDHVI 12:53
PROVIDERS: ATTEND Internal Medicine Cardiovascular Disease
DX: I50.9 Heart failure, unspecified (principal); E11.9 Type 2 diabetes mellitus without complications; D64.9 Anemia, unspecified; I27.21 Secondary pulmonary arterial hypertension
CPT/HCPCS: 93701; 94618; 96372; G0463; J3420

== ENCOUNTER → 2017-05-06 | Outpatient (CLI) | payer MEDICARE, OTHER ==
[~2017-05-06] MED LIST changes: -CYANOCOBALAMIN (B-12) 1000 MCG/1 ML VIAL IM ONE; -CYANOCOBALAMIN (B-12) 1000 MCG/1 ML VIAL ONE
[2017-05-06 10:30] VITALS: BP 108/54
[2017-05-06 12:08] LABS: Basophils # (auto) 0.1 uL; Basophils % (auto) 2.4 % (0.0-2.0); Eosinophils # (auto) 0.4 uL; Eosinophils % (auto) 10.5 % (0.0-7.0); Hematocrit 30.1 % (36.0-46.0); Hemoglobin 9.8 g/dL (12.2-16.2); Lymphocytes # (auto) 0.9 uL; Lymphocytes % (auto) 23.6 % (10.0-50.0); Mean Corpuscular Hemoglobin 29.4 pg (28.0-32.0); Mean Corpuscular Hgb Conc. 32.6 g/dL (32.0-36.0); Mean Corpuscular Volume 90.3 fL (80.0-100.0); Monocytes # (auto) 0.4 uL; Monocytes % (auto) 10.5 % (0.0-12.0); Neutrophils # (auto) 1.9 uL; Nucleated Red Blood Cells % 0.1 %; Platelet Count (auto) 104 10^3/uL (140-450); Red Blood Cells 3.33 10^6/uL (4.0-5.20); Red Cell Distribution Width 18.2 % (11.8-14.3); White Blood Cell 3.6 10^3/uL (4.4-10.8)
[2017-05-06 12:26] LABS: Albumin 3.2 g/dL (3.4-5.0); BUN/Creatinine Ratio 46.4; Bilirubin, Total 0.4 mg/dL (0.2-1.0); Calcium 8.7 mg/dL (8.5-10.1); Magnesium 2.4 mg/dL (1.6-2.6); Phosphorus 3.2 mg/dL (2.5-4.90); Potassium 3.9 mmol/L (3.5-5.1); Total Protein 6.9 g/dL (6.4-8.2); Uric Acid 7.3 mg/dL (2.6-6.0)
[2017-05-06 12:28] LABS: % Iron Saturation 21.8 % (15-50)
== END | disposition home or self-care (01) ==
LOC: CHF HDHVI 09:42
PROVIDERS: ATTEND Internal Medicine Cardiovascular Disease
DX: I13.0 Hypertensive heart and chronic kidney disease with heart failure and stage 1 through stage 4 chronic kidney disease, or unspecified chronic kidney disease (principal); N18.9 Chronic kidney disease, unspecified; I50.9 Heart failure, unspecified; D63.1 Anemia in chronic kidney disease; N39.0 Urinary tract infection, site not specified; I27.21 Secondary pulmonary arterial hypertension; I25.10 Atherosclerotic heart disease of native coronary artery without angina pectoris
CPT/HCPCS: 36415; 80053; 82306; 82728; 83036; 83540; 83550; 83735; 84100; 84550; 85025; 85045; G0463; J1642

== ENCOUNTER → 2017-05-20 | Outpatient (CLI) | payer MEDICARE, OTHER ==
[~2017-05-20] MED LIST changes: +CYANOCOBALAMIN (B-12) 1000 MCG/1 ML VIAL IM ONE; +CYANOCOBALAMIN (B-12) 1000 MCG/1 ML VIAL ONE
[2017-05-20 13:00] VITALS: BP 114/48
[2017-05-20 14:05] VITALS: BP 114/51
== END | disposition home or self-care (01) ==
LOC: CHF HDHVI 13:11
PROVIDERS: ATTEND Internal Medicine Cardiovascular Disease
DX: N18.9 Chronic kidney disease, unspecified (principal); I27.21 Secondary pulmonary arterial hypertension; E87.70 Fluid overload, unspecified; R53.83 Other fatigue
CPT/HCPCS: 82962; 96372; G0463; J3420

== ENCOUNTER → 2017-06-03 | Outpatient (CLI) | payer MEDICARE, OTHER ==
[~2017-06-03] MED LIST changes: -CYANOCOBALAMIN (B-12) 1000 MCG/1 ML VIAL IM ONE; -CYANOCOBALAMIN (B-12) 1000 MCG/1 ML VIAL ONE; +FUROSEMIDE 40 MG/4 ML VIAL IV ONE; +FUROSEMIDE 40 MG/4 ML VIAL ONE; +POTASSIUM CHL 10 Meq TABLET PO ONE; +POTASSIUM CHL 20 Meq TABLET PO ONE
[2017-06-03 11:40] VITALS: BP 109/50
[2017-06-03 16:51] LABS: BUN/Creatinine Ratio 31.1; Calcium 8.1 mg/dL (8.5-10.1); Potassium 4.1 mmol/L (3.5-5.1)
[2017-06-03 16:59] LABS: Basophils # (auto) 0 uL; Basophils % (auto) 0.8 % (0.0-2.0); Eosinophils # (auto) 0.7 uL; Eosinophils % (auto) 13.9 % (0.0-7.0); Hematocrit 26.8 % (36.0-46.0); Hemoglobin 8.8 g/dL (12.2-16.2); Lymphocytes # (auto) 0.9 uL; Lymphocytes % (auto) 16.7 % (10.0-50.0); Mean Corpuscular Hemoglobin 30.2 pg (28.0-32.0); Mean Corpuscular Hgb Conc. 32.8 g/dL (32.0-36.0); Mean Corpuscular Volume 92.1 fL (80.0-100.0); Monocytes # (auto) 0.4 uL; Monocytes % (auto) 8.4 % (0.0-12.0); Neutrophils # (auto) 3.1 uL; Neutrophils % (auto) 60.2 % (37.0-80.0); Nucleated Red Blood Cells % 0.2 %; Platelet Count (auto) 90 10^3/uL (140-450); Red Blood Cells 2.91 10^6/uL (4.0-5.20); Red Cell Distribution Width 18.4 % (11.8-14.3); White Blood Cell 5.1 10^3/uL (4.4-10.8)
== END | disposition home or self-care (01) ==
LOC: CHF HDHVI 11:10
PROVIDERS: ATTEND Internal Medicine Cardiovascular Disease
DX: D64.9 Anemia, unspecified (principal); I25.10 Atherosclerotic heart disease of native coronary artery without angina pectoris; I27.21 Secondary pulmonary arterial hypertension; E78.5 Hyperlipidemia, unspecified; N28.9 Disorder of kidney and ureter, unspecified; I11.0 Hypertensive heart disease with heart failure; I50.9 Heart failure, unspecified
CPT/HCPCS: 36415; 80048; 85025; 93701; 96374; G0463; J1642; J1940

== ENCOUNTER → 2017-06-09 | Outpatient (CLI) | payer MEDICARE, OTHER ==
[~2017-06-09] MED LIST changes: -FUROSEMIDE 40 MG/4 ML VIAL IV ONE; -FUROSEMIDE 40 MG/4 ML VIAL ONE; -POTASSIUM CHL 10 Meq TABLET PO ONE; -POTASSIUM CHL 20 Meq TABLET PO ONE
[2017-06-09 12:43] VITALS: BP 108/50
[2017-06-09 16:37] LABS: BUN/Creatinine Ratio 37.9; Bilirubin, Total 0.4 mg/dL (0.2-1.0); Magnesium 2.2 mg/dL (1.6-2.6); Potassium 3.7 mmol/L (3.5-5.1); Total Protein 6.8 g/dL (6.4-8.2)
[2017-06-09 16:42] LABS: Basophils # (auto) 0 uL; Basophils % (auto) 0.6 % (0.0-2.0); Eosinophils # (auto) 0.9 uL; Eosinophils % (auto) 14.5 % (0.0-7.0); Hematocrit 28.8 % (36.0-46.0); Hemoglobin 9.6 g/dL (12.2-16.2); Lymphocytes # (auto) 0.7 uL; Mean Corpuscular Hemoglobin 29.9 pg (28.0-32.0); Mean Corpuscular Hgb Conc. 33.4 g/dL (32.0-36.0); Mean Corpuscular Volume 89.6 fL (80.0-100.0); Monocytes # (auto) 0.5 uL; Monocytes % (auto) 7.5 % (0.0-12.0); Neutrophils # (auto) 4.3 uL; Neutrophils % (auto) 66.4 % (37.0-80.0); Platelet Count (auto) 119 10^3/uL (140-450); Red Blood Cells 3.21 10^6/uL (4.0-5.20); Red Cell Distribution Width 17.8 % (11.8-14.3); White Blood Cell 6.5 10^3/uL (4.4-10.8)
[2017-06-09 17:09] LABS: % Iron Saturation 12.8 % (15-50)
== END | disposition home or self-care (01) ==
LOC: CHF HDHVI 10:53
PROVIDERS: ATTEND Internal Medicine Cardiovascular Disease
DX: I13.0 Hypertensive heart and chronic kidney disease with heart failure and stage 1 through stage 4 chronic kidney disease, or unspecified chronic kidney disease (principal); E11.22 Type 2 diabetes mellitus with diabetic chronic kidney disease; N18.9 Chronic kidney disease, unspecified; D63.1 Anemia in chronic kidney disease; I50.9 Heart failure, unspecified; I35.1 Nonrheumatic aortic (valve) insufficiency
CPT/HCPCS: 36415; 80053; 82668; 82728; 82962; 83540; 83550; 83735; 83970; 84100; 85025; 85045; G0463; J1642

== ENCOUNTER → 2017-06-11 | Outpatient (CLI) | payer MEDICARE, OTHER | END | disposition home or self-care (01) | LOC: Rad HDHVI 09:00 | PROVIDERS: ATTEND Internal Medicine Cardiovascular Disease | DX: I08.1 Rheumatic disorders of both mitral and tricuspid valves (principal); E11.9 Type 2 diabetes mellitus without complications | CPT/HCPCS: 93306 ==

== ENCOUNTER → 2017-06-16 | Outpatient (CLI) | payer MEDICARE, OTHER ==
[~2017-06-16] VITALS: Ht 165.1 cm; Wt 70.3 kg
[~2017-06-16] MED LIST changes: +InsuLIN REG 1unit/0.01ml Soln (100units/ml) IV ONE; +InsuLIN REG 1unit/0.01ml Soln (100units/ml) ONE; +InsuLIN REG 1unit/0.01ml Soln (100units/ml) SC ONE; +POTASSIUM CHL 20 Meq TABLET PO ONE; +SODIUM CHLORIDE 0.9% 1,000 ML IV ONE
[2017-06-16 15:12] LABS: Basophils # (auto) 0.1 uL; Basophils % (auto) 1.7 % (0.0-2.0); Eosinophils # (auto) 0.2 uL; Eosinophils % (auto) 3.2 % (0.0-7.0); Hematocrit 26.9 % (36.0-46.0); Hemoglobin 8.8 g/dL (12.2-16.2); Lymphocytes # (auto) 0.6 uL; Lymphocytes % (auto) 10.5 % (10.0-50.0); Mean Corpuscular Hemoglobin 29.7 pg (28.0-32.0); Mean Corpuscular Hgb Conc. 32.8 g/dL (32.0-36.0); Mean Corpuscular Volume 90.3 fL (80.0-100.0); Monocytes # (auto) 0.4 uL; Monocytes % (auto) 7.5 % (0.0-12.0); Neutrophils # (auto) 4.4 uL; Neutrophils % (auto) 77.1 % (37.0-80.0); Nucleated Red Blood Cells % 0.1 %; Platelet Count (auto) 139 10^3/uL (140-450); Red Blood Cells 2.98 10^6/uL (4.0-5.20); Red Cell Distribution Width 18.1 % (11.8-14.3); White Blood Cell 5.7 10^3/uL (4.4-10.8)
[2017-06-16 15:23] LABS: BUN/Creatinine Ratio 31.6; Calcium 8.2 mg/dL (8.5-10.1); Potassium 3.8 mmol/L (3.5-5.1)
[2017-06-16 17:09] VITALS: BP 115/55
== END | disposition home or self-care (01) ==
LOC: CHF HDHVI 14:14
PROVIDERS: ATTEND Internal Medicine Cardiovascular Disease
DX: E11.65 Type 2 diabetes mellitus with hyperglycemia (principal); D64.9 Anemia, unspecified; E86.0 Dehydration; I13.0 Hypertensive heart and chronic kidney disease with heart failure and stage 1 through stage 4 chronic kidney disease, or unspecified chronic kidney disease; N18.9 Chronic kidney disease, unspecified; I50.23 Acute on chronic systolic (congestive) heart failure; D63.1 Anemia in chronic kidney disease; Z79.4 Long term (current) use of insulin
CPT/HCPCS: 36415; 80048; 82962; 85025; 96361; 96374; G0463; J1642; J1815; 96360; 96375

== ENCOUNTER → 2017-06-17 | Outpatient (CLI) | payer MEDICARE, OTHER ==
[~2017-06-17] MED LIST changes: -InsuLIN REG 1unit/0.01ml Soln (100units/ml) IV ONE; -InsuLIN REG 1unit/0.01ml Soln (100units/ml) SC ONE; -POTASSIUM CHL 20 Meq TABLET PO ONE
[2017-06-17 10:34] LABS: Basophils # (auto) 0.2 uL; Basophils % (auto) 3.3 % (0.0-2.0); Eosinophils # (auto) 0.2 uL; Eosinophils % (auto) 3.9 % (0.0-7.0); Hematocrit 28.1 % (36.0-46.0); Hemoglobin 9.4 g/dL (12.2-16.2); Lymphocytes # (auto) 0.9 uL; Lymphocytes % (auto) 14.4 % (10.0-50.0); Mean Corpuscular Hemoglobin 29.5 pg (28.0-32.0); Mean Corpuscular Hgb Conc. 33.5 g/dL (32.0-36.0); Monocytes # (auto) 0.3 uL; Monocytes % (auto) 5.4 % (0.0-12.0); Neutrophils # (auto) 4.6 uL; Platelet Count (auto) 174 10^3/uL (140-450); White Blood Cell 6.3 10^3/uL (4.4-10.8)
[2017-06-17 10:46] LABS: BUN/Creatinine Ratio 35.7; Calcium 8.7 mg/dL (8.5-10.1); Potassium 3.8 mmol/L (3.5-5.1)
[2017-06-17 13:30] VITALS: BP 103/52
== END | disposition home or self-care (01) ==
LOC: CHF HDHVI 09:58
PROVIDERS: ATTEND Internal Medicine Cardiovascular Disease
DX: E11.9 Type 2 diabetes mellitus without complications (principal); I27.21 Secondary pulmonary arterial hypertension; D64.9 Anemia, unspecified; I50.9 Heart failure, unspecified; E11.65 Type 2 diabetes mellitus with hyperglycemia
CPT/HCPCS: 36415; 80048; 82962; 85025; 96360; 96361; G0463; J1642; J1815; J7030; 96366

== ENCOUNTER → 2017-06-18 | Outpatient (CLI) | payer MEDICARE, OTHER ==
[~2017-06-18] MED LIST changes: -InsuLIN REG 1unit/0.01ml Soln (100units/ml) ONE; -SODIUM CHLORIDE 0.9% 1,000 ML IV ONE; +SODIUM CHLORIDE 0.9% 1,000 ML IV SCH
[2017-06-18 10:12] LABS: Albumin 3.1 g/dL (3.4-5.0); BUN/Creatinine Ratio 37.4; Bilirubin, Total 0.3 mg/dL (0.2-1.0); Calcium 8.2 mg/dL (8.5-10.1); Potassium 3.5 mmol/L (3.5-5.1); Total Protein 6.7 g/dL (6.4-8.2)
[2017-06-18 13:05] VITALS: BP 113/48
== END | disposition home or self-care (01) ==
LOC: CHF HDHVI 09:04
PROVIDERS: ATTEND Internal Medicine Cardiovascular Disease
DX: I10 Essential (primary) hypertension (principal); D64.9 Anemia, unspecified; R79.89 Other specified abnormal findings of blood chemistry
CPT/HCPCS: 36415; 80053; 82962; G0463; J1642

== ENCOUNTER → 2017-06-21 | Outpatient (CLI) | payer MEDICARE, OTHER ==
[~2017-06-21] MED LIST changes: -SODIUM CHLORIDE 0.9% 1,000 ML IV SCH; +SODIUM CHLORIDE 0.9% 500 ML IV ONE
[2017-06-21 10:56] LABS: BUN/Creatinine Ratio 41.9; Basophils # (auto) 0.1 uL; Basophils % (auto) 1.9 % (0.0-2.0); Calcium 8.6 mg/dL (8.5-10.1); Eosinophils # (auto) 0.2 uL; Eosinophils % (auto) 2.6 % (0.0-7.0); Hematocrit 27.9 % (36.0-46.0); Hemoglobin 9.2 g/dL (12.2-16.2); Lymphocytes # (auto) 1.1 uL; Lymphocytes % (auto) 17.3 % (10.0-50.0); Mean Corpuscular Hemoglobin 29.4 pg (28.0-32.0); Mean Corpuscular Volume 89.3 fL (80.0-100.0); Monocytes # (auto) 0.4 uL; Monocytes % (auto) 6.2 % (0.0-12.0); Neutrophils # (auto) 4.8 uL; Nucleated Red Blood Cells % 0.1 %; Platelet Count (auto) 171 10^3/uL (140-450); Potassium 3.8 mmol/L (3.5-5.1); Red Blood Cells 3.13 10^6/uL (4.0-5.20); Red Cell Distribution Width 18.5 % (11.8-14.3); White Blood Cell 6.6 10^3/uL (4.4-10.8)
[2017-06-21 12:35] VITALS: BP 94/46
== END | disposition home or self-care (01) ==
LOC: CHF HDHVI 10:00
PROVIDERS: ATTEND Internal Medicine Cardiovascular Disease
DX: D64.9 Anemia, unspecified (principal); I10 Essential (primary) hypertension
CPT/HCPCS: 36415; 80048; 85025; 96360; G0463; J1642; J7040

== ENCOUNTER → 2017-06-30 | Outpatient (CLI) | payer MEDICARE, OTHER ==
[~2017-06-30] MED LIST changes: -SODIUM CHLORIDE 0.9% 500 ML IV ONE
[2017-06-30 10:15] VITALS: BP 112/53
[2017-06-30 12:27] LABS: Basophils # (auto) 0.1 uL; Basophils % (auto) 1.9 % (0.0-2.0); Eosinophils # (auto) 0.6 uL; Eosinophils % (auto) 10.5 % (0.0-7.0); Hematocrit 28.3 % (36.0-46.0); Hemoglobin 9.3 g/dL (12.2-16.2); Lymphocytes # (auto) 0.9 uL; Lymphocytes % (auto) 15.8 % (10.0-50.0); Mean Corpuscular Hemoglobin 30.4 pg (28.0-32.0); Mean Corpuscular Hgb Conc. 32.8 g/dL (32.0-36.0); Mean Corpuscular Volume 92.4 fL (80.0-100.0); Monocytes # (auto) 0.4 uL; Monocytes % (auto) 7.9 % (0.0-12.0); Neutrophils # (auto) 3.6 uL; Neutrophils % (auto) 63.9 % (37.0-80.0); Nucleated Red Blood Cells % 0.1 %; Red Blood Cells 3.06 10^6/uL (4.0-5.20); Red Cell Distribution Width 19.2 % (11.8-14.3); White Blood Cell 5.6 10^3/uL (4.4-10.8)
[2017-06-30 12:32] LABS: Platelet Count (auto) 115 10^3/uL (140-450)
[2017-06-30 12:42] LABS: BUN/Creatinine Ratio 35.1; Calcium 8.1 mg/dL (8.5-10.1); Magnesium 2.3 mg/dL (1.6-2.6)
[2017-06-30 16:02] VITALS: BP 106/52
== END | disposition home or self-care (01) ==
LOC: CHF HDHVI 10:07
PROVIDERS: ATTEND Internal Medicine Cardiovascular Disease
DX: D64.9 Anemia, unspecified (principal); E83.40 Disorders of magnesium metabolism, unspecified; E11.22 Type 2 diabetes mellitus with diabetic chronic kidney disease; I12.9 Hypertensive chronic kidney disease with stage 1 through stage 4 chronic kidney disease, or unspecified chronic kidney disease; N18.9 Chronic kidney disease, unspecified
CPT/HCPCS: 36415; 80048; 83735; 85025; G0463; J1642

== ENCOUNTER → 2017-07-06 | Outpatient (CLI) | payer MEDICARE, OTHER ==
[~2017-07-06] MED LIST changes: +CYANOCOBALAMIN (B-12) 1000 MCG/1 ML VIAL IM ONE; +CYANOCOBALAMIN (B-12) 1000 MCG/1 ML VIAL ONE
[2017-07-06 11:15] VITALS: BP 125/58
[2017-07-06 12:05] VITALS: BP 142/54
[2017-07-06 16:02] LABS: Basophils # (auto) 0.1 uL; Basophils % (auto) 1.4 % (0.0-2.0); Eosinophils # (auto) 0.5 uL; Eosinophils % (auto) 8.9 % (0.0-7.0); Hematocrit 29.7 % (36.0-46.0); Hemoglobin 9.7 g/dL (12.2-16.2); Lymphocytes # (auto) 0.6 uL; Lymphocytes % (auto) 10.8 % (10.0-50.0); Mean Corpuscular Hemoglobin 30.2 pg (28.0-32.0); Mean Corpuscular Hgb Conc. 32.6 g/dL (32.0-36.0); Mean Corpuscular Volume 92.6 fL (80.0-100.0); Monocytes # (auto) 0.4 uL; Neutrophils # (auto) 3.8 uL; Neutrophils % (auto) 70.9 % (37.0-80.0); Platelet Count (auto) 95 10^3/uL (140-450); Red Cell Distribution Width 19.2 % (11.8-14.3); White Blood Cell 5.4 10^3/uL (4.4-10.8)
[2017-07-06 16:20] LABS: BUN/Creatinine Ratio 38.7; Calcium 8.9 mg/dL (8.5-10.1); Magnesium 2.3 mg/dL (1.6-2.6); Potassium 4.1 mmol/L (3.5-5.1)
== END | disposition home or self-care (01) ==
LOC: CHF HDHVI 11:22
PROVIDERS: ATTEND Internal Medicine Cardiovascular Disease
DX: E11.22 Type 2 diabetes mellitus with diabetic chronic kidney disease (principal); I13.0 Hypertensive heart and chronic kidney disease with heart failure and stage 1 through stage 4 chronic kidney disease, or unspecified chronic kidney disease; N18.9 Chronic kidney disease, unspecified; I50.33 Acute on chronic diastolic (congestive) heart failure; D64.9 Anemia, unspecified
CPT/HCPCS: 36415; 80048; 83735; 85025; 96372; G0463; J1642; J3420

== ENCOUNTER → 2017-08-04 | Outpatient (CLI) | payer MEDICARE, OTHER ==
[~2017-08-04] MED LIST changes: -CETI10TA57 PO; -CYANOCOBALAMIN (B-12) 1000 MCG/1 ML VIAL IM ONE; -CYANOCOBALAMIN (B-12) 1000 MCG/1 ML VIAL ONE; -FERR325T50 PO; -FURO20TA PO; -GABA100C9 PO; +InsuLIN REG 1unit/0.01ml Soln (100units/ml) ONE; -METO25TA5 PO; -SIMV80TA73 PO
[2017-08-04] MEDS: InsuLIN REG 1unit/0.01ml Soln (100units/ml) SC SCH (10:17)
[2017-08-04 10:58] VITALS: BP 138/70
[2017-08-04 12:05] LABS: Basophils # (auto) 0.2 uL; Basophils % (auto) 3.2 % (0.0-2.0); Eosinophils # (auto) 0.6 uL; Eosinophils % (auto) 11.2 % (0.0-7.0); Hematocrit 30.6 % (36.0-46.0); Hemoglobin 10.1 g/dL (12.2-16.2); Lymphocytes # (auto) 0.7 uL; Lymphocytes % (auto) 13.4 % (10.0-50.0); Mean Corpuscular Hemoglobin 31.1 pg (28.0-32.0); Mean Corpuscular Volume 94.2 fL (80.0-100.0); Monocytes # (auto) 0.5 uL; Monocytes % (auto) 8.5 % (0.0-12.0); Neutrophils # (auto) 3.5 uL; Neutrophils % (auto) 63.7 % (37.0-80.0); Nucleated Red Blood Cells % 0.2 %; Platelet Count (auto) 133 10^3/uL (140-450); Red Blood Cells 3.25 10^6/uL (4.0-5.20); Red Cell Distribution Width 20.3 % (11.8-14.3); White Blood Cell 5.5 10^3/uL (4.4-10.8)
[2017-08-04 12:30] LABS: Albumin 3.6 g/dL (3.4-5.0); BUN/Creatinine Ratio 34.7; Bilirubin, Total 1.2 mg/dL (0.2-1.0); Magnesium 2.2 mg/dL (1.6-2.6); Potassium 4.1 mmol/L (3.5-5.1); Total Protein 6.8 g/dL (6.4-8.2)
== END | disposition home or self-care (01) ==
LOC: CHF HDHVI 10:06
PROVIDERS: ATTEND Internal Medicine Cardiovascular Disease
DX: E11.22 Type 2 diabetes mellitus with diabetic chronic kidney disease (principal); N18.9 Chronic kidney disease, unspecified; I50.33 Acute on chronic diastolic (congestive) heart failure; D64.9 Anemia, unspecified; I25.10 Atherosclerotic heart disease of native coronary artery without angina pectoris; I13.0 Hypertensive heart and chronic kidney disease with heart failure and stage 1 through stage 4 chronic kidney disease, or unspecified chronic kidney disease; I50.23 Acute on chronic systolic (congestive) heart failure; I50.31 Acute diastolic (congestive) heart failure; Z79.4 Long term (current) use of insulin
CPT/HCPCS: 36415; 80053; 82306; 82962; 83036; 83735; 85025; 96372; G0463; J1642; J1815

== ENCOUNTER 2017-08-25 21:21 | Inpatient (IN) | payer MEDICARE, OTHER ==
[~2017-08-25] VITALS: Ht 162.6 cm; Wt 69.5 kg
[~2017-08-25 21:21] MED LIST changes: -InsuLIN REG 1unit/0.01ml Soln (100units/ml) ONE
[2017-08-25 23:49] LABS: Basophils # (auto) 0.1 uL; Basophils % (auto) 1.3 % (0.0-2.0); Eosinophils # (auto) 0.1 uL; Eosinophils % (auto) 1.4 % (0.0-7.0); Hematocrit 34.5 % (36.0-46.0); Hemoglobin 11.5 g/dL (12.2-16.2); Lymphocytes # (auto) 0.7 uL; Lymphocytes % (auto) 8.9 % (10.0-50.0); Mean Corpuscular Hemoglobin 30.1 pg (28.0-32.0); Mean Corpuscular Hgb Conc. 33.2 g/dL (32.0-36.0); Mean Corpuscular Volume 90.5 fL (80.0-100.0); Monocytes # (auto) 0.4 uL; Monocytes % (auto) 4.6 % (0.0-12.0); Neutrophils # (auto) 6.6 uL; Neutrophils % (auto) 83.8 % (37.0-80.0); Nucleated Red Blood Cells % 0.1 %; Platelet Count (auto) 120 10^3/uL (140-450); Red Blood Cells 3.82 10^6/uL (4.0-5.20); Red Cell Distribution Width 18.8 % (11.8-14.3); White Blood Cell 7.9 10^3/uL (4.4-10.8)
[2017-08-26 00:03] LABS: INR 1.03 (0.9-1.15); Partial Thromboplastin Time 27.1 sec (23.78-33.04)
[2017-08-26 00:05] LABS: Albumin 3.3 g/dL (3.4-5.0); Anion Gap 10 (5-15); Aspartate Aminotransferase 89 U/L (15-37); BUN/Creatinine Ratio 35.8; Blood Alcohol < 3.0 mg/dL (0-5); Blood Urea Nitrogen 72 mg/dL (7-18); Calcium 9.2 mg/dL (8.5-10.1); Carbon Dioxide 23 mmol/L (21-32); Chloride 109 mmol/L (98-107); GFR African American 31 mL/min; GFR Non-African American 25 mL/min; Glucose 107 mg/dL (74-106); Magnesium 2.2 mg/dL (1.6-2.6); Potassium 4.1 mmol/L (3.5-5.1); Sodium 142 mmol/L (136-145)
[2017-08-26 00:10] LABS: Alanine Aminotransferase 59 U/L (13-56); Alkaline Phosphatase 108 U/L (45-117); Bilirubin, Total 0.5 mg/dL (0.2-1.0); Total Protein 7.6 g/dL (6.4-8.2)
[2017-08-26] MEDS ORDERED: ACETAMINOPHEN 500 MG TAB PO ONE (03:30)
[2017-08-26 03:31] LABS: Urine Bacteria MOD /hpf (None Seen); Urine Blood 1+ /uL (Negative); Urine Specific Gravity 1.011 (1.001-1.035); Urine WBC 189 /hpf (0 - 5); Urine WBC Clumps PRESENT /hpf (None Seen)
[2017-08-26 03:44] LABS: Alcohol, Urine < 3.0 mg/dL (0-5); Amphetamine Screen, Urine NEGATIVE (NEGATIVE); Barbiturate Scree,Urine NEGATIVE (NEGATIVE); Benzodiazephine Screen, Urine NEGATIVE (NEGATIVE); Cannabinoid Screen, Urine NEGATIVE (NEGATIVE); Cocaine Screen, Urine NEGATIVE (NEGATIVE); Opiate Scree,Urine NEGATIVE (NEGATIVE)
[2017-08-26 03:50] LABS: Phencyclidine Screen, Urine NEGATIVE (NEGATIVE)
[2017-08-26] MEDS ORDERED: MORPHINE SULFATE 4 MG/ML SYR/VIAL IV PRN (07:15)
[2017-08-26] MEDS ORDERED: NITROGLYCERIN 0.4 MG SL TAB SL PRN (07:15)
[2017-08-26] MEDS ORDERED: ACETAMINOPHEN 325 MG TAB PO PRN (07:15)
[2017-08-26] MEDS ORDERED: HYDROcodone-ACET 5/325MG TAB PO PRN (07:15)
[2017-08-26] MEDS ORDERED: DEXTROSE (50%) 50ML SYRG IV PRN ×2 (07:15→08:00)
[2017-08-26] MEDS ORDERED: ONDANSETRON HCL 4 MG/2 ML VIAL IV PRN (07:15)
[2017-08-26] MEDS ORDERED: TEMAZEPAM 15 MG CAP PO PRN (07:15)
[2017-08-26] MEDS ORDERED: InsuLIN REG 1unit/0.01ml Soln (100units/ml) SC SCH (08:00)
[2017-08-26] MEDS ORDERED: ACCU-CHEK COMFORT CURVE STRIP VI SCH (08:00)
[2017-08-26 09:30] VITALS: BP 129/72
[2017-08-26] MEDS ORDERED: LISINOPRIL 10 MG TAB PO SCH (10:00)
[2017-08-26] MEDS ORDERED: GABAPENTIN 300 MG CAP PO SCH (10:00)
[2017-08-26] MEDS ORDERED: ENOXAPARIN SOD 30 MG/0.3 ML SYRINGE SC SCH (10:00)
[2017-08-26] MEDS ORDERED: PANTOPRAZOLE 40 MG TAB PO SCH (10:00)
[2017-08-26] MEDS ORDERED: amLODIPine BESYLATE 5 MG TAB PO SCH (10:00)
[2017-08-26] MEDS: FAMOTIDINE 20 MG TAB PO SCH ×2 (10:18→21:54)
[2017-08-26] MEDS: LISINOPRIL 10 MG TAB PO SCH (10:18)
[2017-08-26] MEDS: amLODIPine BESYLATE 5 MG TAB PO SCH (10:19)
[2017-08-26] MEDS: ASPirin-EC 81 mg tab PO SCH (10:19)
[2017-08-26] MEDS: ACCU-CHEK COMFORT CURVE STRIP VI SCH ×3 (11:51→21:56)
[2017-08-26] MEDS: InsuLIN REG 1unit/0.01ml Soln (100units/ml) SC SCH ×3 (12:18→21:55)
[2017-08-26 13:00] VITALS: BP 117/53
[2017-08-26 17:00] VITALS: BP 93/48
[2017-08-26] MEDS: FERROUS SULFATE 325 MG TAB PO SCH (18:19)
[2017-08-26 20:00] VITALS: BP 99/52
[2017-08-26] MEDS: GABAPENTIN 300 MG CAP PO SCH (21:54)
[2017-08-26] MEDS ORDERED: ATORVASTATIN 20 MG TAB PO SCH (22:00)
[2017-08-26] MEDS ORDERED: PATIENTS OWN MEDICATION (simvastatin 40 MG) PO SCH (22:00)
[2017-08-26 22:52] VITALS: BP 99/52
[2017-08-27] VITALS (8 sets, daily range): BP systolic 93–110; BP diastolic 49–61
[2017-08-27] MEDS: InsuLIN REG 1unit/0.01ml Soln (100units/ml) SC SCH ×4 (07:00→21:40)
[2017-08-27] MEDS: ACCU-CHEK COMFORT CURVE STRIP VI SCH ×4 (07:13→21:36)
[2017-08-27] MEDS: FAMOTIDINE 20 MG TAB PO SCH ×2 (09:34→21:30)
[2017-08-27] MEDS: LISINOPRIL 10 MG TAB PO SCH (09:35)
[2017-08-27] MEDS: FERROUS SULFATE 325 MG TAB PO SCH ×2 (09:37→17:45)
[2017-08-27] MEDS: ASPirin-EC 81 mg tab PO SCH (09:37)
[2017-08-27] MEDS: amLODIPine BESYLATE 5 MG TAB PO SCH (10:00)
[2017-08-27] MEDS: GABAPENTIN 300 MG CAP PO SCH (21:30)
[2017-08-28 04:33] VITALS: BP 96/57
[2017-08-28] MEDS: ACCU-CHEK COMFORT CURVE STRIP VI SCH ×2 (06:08→11:33)
[2017-08-28] MEDS: InsuLIN REG 1unit/0.01ml Soln (100units/ml) SC SCH ×2 (06:08→11:33)
[2017-08-28 09:00] VITALS: BP 112/60
[2017-08-28] MEDS: FERROUS SULFATE 325 MG TAB PO SCH (09:19)
[2017-08-28] MEDS: FAMOTIDINE 20 MG TAB PO SCH (09:20)
[2017-08-28] MEDS: amLODIPine BESYLATE 5 MG TAB PO SCH (09:20)
[2017-08-28] MEDS: ASPirin-EC 81 mg tab PO SCH (09:20)
[2017-08-28] MEDS: LISINOPRIL 10 MG TAB PO SCH (09:21)
[2017-08-28 13:00] VITALS: BP 147/70
== END 2017-08-28 12:49 | disposition left against medical advice (07) | DRG 637 ==
LOC: EDBD 21:21 → ER 21:21 → WEST WING 21:22 → TELE-WESTW 08-26 16:02
PROVIDERS: ADMIT Internal Medicine Cardiovascular Disease; ATTEND Internal Medicine Cardiovascular Disease
DX: E11.649 Type 2 diabetes mellitus with hypoglycemia without coma (principal); G93.41 Metabolic encephalopathy; D64.9 Anemia, unspecified; F03.90 Unspecified dementia, unspecified severity, without behavioral disturbance, psychotic disturbance, mood disturbance, and anxiety; N28.9 Disorder of kidney and ureter, unspecified; I10 Essential (primary) hypertension; I34.0 Nonrheumatic mitral (valve) insufficiency; Z53.21 Procedure and treatment not carried out due to patient leaving prior to being seen by health care provider; M10.9 Gout, unspecified; I25.10 Atherosclerotic heart disease of native coronary artery without angina pectoris; Z86.73 Personal history of transient ischemic attack (TIA), and cerebral infarction without residual deficits; Z90.710 Acquired absence of both cervix and uterus; Z88.8 Allergy status to other drugs, medicaments and biological substances
CPT/HCPCS: 36415; 70450; 71045; 80053; 80307; 80320; 81001; 82962; 83605; 83735; 84484; 85025; 85379; 85610; 85730; 87040; 87086; 93005; 94761; J1642; J1815

== ENCOUNTER → 2017-09-03 | Outpatient (CLI) | payer MEDICARE, OTHER ==
[2017-09-03 11:43] VITALS: BP 113/54
[2017-09-03 16:01] LABS: Basophils # (auto) 0.1 uL; Basophils % (auto) 2.2 % (0.0-2.0); Eosinophils # (auto) 0.4 uL; Eosinophils % (auto) 6.9 % (0.0-7.0); Hematocrit 31.2 % (36.0-46.0); Hemoglobin 10.5 g/dL (12.2-16.2); Lymphocytes # (auto) 0.8 uL; Lymphocytes % (auto) 13.7 % (10.0-50.0); Mean Corpuscular Hemoglobin 30.8 pg (28.0-32.0); Mean Corpuscular Hgb Conc. 33.7 g/dL (32.0-36.0); Mean Corpuscular Volume 91.5 fL (80.0-100.0); Monocytes # (auto) 0.3 uL; Monocytes % (auto) 5.7 % (0.0-12.0); Neutrophils # (auto) 4.2 uL; Neutrophils % (auto) 71.5 % (37.0-80.0); Nucleated Red Blood Cells % 0.2 %; Platelet Count (auto) 108 10^3/uL (140-450); Red Blood Cells 3.41 10^6/uL (4.0-5.20); Red Cell Distribution Width 18.5 % (11.8-14.3); White Blood Cell 5.9 10^3/uL (4.4-10.8)
[2017-09-03 16:09] LABS: BUN/Creatinine Ratio 37.4; Calcium 8.7 mg/dL (8.5-10.1); Magnesium 2.2 mg/dL (1.6-2.6); Potassium 4.8 mmol/L (3.5-5.1)
== END | disposition home or self-care (01) ==
LOC: CHF HDHVI 11:45
PROVIDERS: ATTEND Internal Medicine Cardiovascular Disease
DX: I13.0 Hypertensive heart and chronic kidney disease with heart failure and stage 1 through stage 4 chronic kidney disease, or unspecified chronic kidney disease (principal); I50.23 Acute on chronic systolic (congestive) heart failure; N18.9 Chronic kidney disease, unspecified; D64.9 Anemia, unspecified; E11.22 Type 2 diabetes mellitus with diabetic chronic kidney disease; I50.33 Acute on chronic diastolic (congestive) heart failure; I25.10 Atherosclerotic heart disease of native coronary artery without angina pectoris; E78.5 Hyperlipidemia, unspecified; Z79.4 Long term (current) use of insulin; Z68.22 Body mass index [BMI] 22.0-22.9, adult; Z79.899 Other long term (current) drug therapy; Z90.49 Acquired absence of other specified parts of digestive tract; Z86.73 Personal history of transient ischemic attack (TIA), and cerebral infarction without residual deficits
CPT/HCPCS: 36415; 80048; 83735; 85025; G0463; J1642

== ENCOUNTER → 2017-10-08 | Outpatient (CLI) | payer MEDICARE, OTHER ==
[2017-10-08 11:26] VITALS: BP 124/61
== END | disposition home or self-care (01) ==
LOC: CHF HDHVI 11:06
PROVIDERS: ATTEND Internal Medicine Cardiovascular Disease
DX: I13.0 Hypertensive heart and chronic kidney disease with heart failure and stage 1 through stage 4 chronic kidney disease, or unspecified chronic kidney disease (principal); E11.22 Type 2 diabetes mellitus with diabetic chronic kidney disease; I50.23 Acute on chronic systolic (congestive) heart failure; N18.4 Chronic kidney disease, stage 4 (severe); I25.10 Atherosclerotic heart disease of native coronary artery without angina pectoris; E87.70 Fluid overload, unspecified; I11.0 Hypertensive heart disease with heart failure; Z79.4 Long term (current) use of insulin; Z79.899 Other long term (current) drug therapy
CPT/HCPCS: 94618; G0463

== ENCOUNTER → 2017-11-09 | Outpatient (CLI) | payer MEDICARE, OTHER ==
[~2017-11-09] VITALS: Ht 30.5 cm; Wt 0.5 kg
[~2017-11-09] MED LIST changes: +CYANOCOBALAMIN (B-12) 1000 MCG/1 ML VIAL IM ONE; +CYANOCOBALAMIN (B-12) 1000 MCG/1 ML VIAL ONE
[2017-11-09 13:35] VITALS: BP 107/51
[2017-11-09 14:35] VITALS: BP 110/53
[2017-11-09 16:21] LABS: Basophils # (auto) 0.1 uL; Basophils % (auto) 2.3 % (0.0-2.0); Eosinophils # (auto) 0.5 uL; Eosinophils % (auto) 10.1 % (0.0-7.0); Hematocrit 29.9 % (36.0-46.0); Hemoglobin 10.2 g/dL (12.2-16.2); Lymphocytes # (auto) 1.1 uL; Lymphocytes % (auto) 22.2 % (10.0-50.0); Mean Corpuscular Hemoglobin 30.7 pg (28.0-32.0); Mean Corpuscular Hgb Conc. 34.3 g/dL (32.0-36.0); Mean Corpuscular Volume 89.6 fL (80.0-100.0); Monocytes # (auto) 0.4 uL; Monocytes % (auto) 7.2 % (0.0-12.0); Neutrophils # (auto) 2.9 uL; Neutrophils % (auto) 58.2 % (37.0-80.0); Platelet Count (auto) 124 10^3/uL (140-450); Red Blood Cells 3.34 10^6/uL (4.0-5.20); Red Cell Distribution Width 17.9 % (11.8-14.3)
[2017-11-09 16:40] LABS: % Iron Saturation 17.9 % (15-50)
[2017-11-09 16:41] LABS: Albumin 3.4 g/dL (3.4-5.0); BUN/Creatinine Ratio 29.6; Bilirubin, Total 0.6 mg/dL (0.2-1.0); Magnesium 2.5 mg/dL (1.6-2.6); Phosphorus 3.2 mg/dL (2.5-4.90); Potassium 4.1 mmol/L (3.5-5.1)
== END | disposition home or self-care (01) ==
LOC: CHF HDHVI 14:01
PROVIDERS: ATTEND Internal Medicine Cardiovascular Disease
DX: D51.9 Vitamin B12 deficiency anemia, unspecified (principal); I13.0 Hypertensive heart and chronic kidney disease with heart failure and stage 1 through stage 4 chronic kidney disease, or unspecified chronic kidney disease; E11.22 Type 2 diabetes mellitus with diabetic chronic kidney disease; I50.23 Acute on chronic systolic (congestive) heart failure; N18.4 Chronic kidney disease, stage 4 (severe); E83.40 Disorders of magnesium metabolism, unspecified; E55.9 Vitamin D deficiency, unspecified; E21.4 Other specified disorders of parathyroid gland; D64.9 Anemia, unspecified; E61.1 Iron deficiency; D72.810 Lymphocytopenia; R78.89 Finding of other specified substances, not normally found in blood; E87.70 Fluid overload, unspecified; I27.21 Secondary pulmonary arterial hypertension; E78.5 Hyperlipidemia, unspecified; Z68.22 Body mass index [BMI] 22.0-22.9, adult; Z79.4 Long term (current) use of insulin; Z79.899 Other long term (current) drug therapy
CPT/HCPCS: 36415; 80053; 82306; 82728; 83036; 83540; 83550; 83735; 83970; 84100; 85025; 85045; 96372; G0463; J1642; J3420

== ENCOUNTER → 2017-11-23 | Outpatient (CLI) | payer MEDICARE, OTHER ==
[2017-11-23 13:47] VITALS: BP 111/52
[2017-11-23 16:14] LABS: Urine Blood 1+ /uL (Negative)
== END | disposition home or self-care (01) ==
LOC: CHF HDHVI 13:10
PROVIDERS: ATTEND Internal Medicine Cardiovascular Disease
DX: D51.9 Vitamin B12 deficiency anemia, unspecified (principal); N39.0 Urinary tract infection, site not specified; R60.0 Localized edema; I25.10 Atherosclerotic heart disease of native coronary artery without angina pectoris; I13.0 Hypertensive heart and chronic kidney disease with heart failure and stage 1 through stage 4 chronic kidney disease, or unspecified chronic kidney disease; E11.22 Type 2 diabetes mellitus with diabetic chronic kidney disease; N18.4 Chronic kidney disease, stage 4 (severe); I50.23 Acute on chronic systolic (congestive) heart failure; I50.33 Acute on chronic diastolic (congestive) heart failure; E78.5 Hyperlipidemia, unspecified; Z79.4 Long term (current) use of insulin; Z79.899 Other long term (current) drug therapy; Z68.22 Body mass index [BMI] 22.0-22.9, adult
CPT/HCPCS: 81003; 87086; 87088; 87186; 96372; G0463; J3420

== ENCOUNTER → 2017-11-26 | Outpatient (CLI) | payer MEDICARE, OTHER ==
[~2017-11-26] MED LIST changes: +BACITRACIN TOP OINT 1 UD PKG TOP ONE; -CYANOCOBALAMIN (B-12) 1000 MCG/1 ML VIAL IM ONE; -CYANOCOBALAMIN (B-12) 1000 MCG/1 ML VIAL ONE; +cefTRIAXone 1GM/10ml IVPUSH 10 ML IV ONE
[2017-11-26 13:00] VITALS: BP 126/79
[2017-11-26 14:00] VITALS: BP 117/61
== END | disposition home or self-care (01) ==
LOC: CHF HDHVI 13:01
PROVIDERS: ATTEND Internal Medicine Cardiovascular Disease
DX: N39.0 Urinary tract infection, site not specified (principal); E87.70 Fluid overload, unspecified; I13.0 Hypertensive heart and chronic kidney disease with heart failure and stage 1 through stage 4 chronic kidney disease, or unspecified chronic kidney disease; E11.22 Type 2 diabetes mellitus with diabetic chronic kidney disease; N18.4 Chronic kidney disease, stage 4 (severe); I50.23 Acute on chronic systolic (congestive) heart failure; I50.33 Acute on chronic diastolic (congestive) heart failure; I25.10 Atherosclerotic heart disease of native coronary artery without angina pectoris; E78.5 Hyperlipidemia, unspecified; Z79.4 Long term (current) use of insulin; Z79.899 Other long term (current) drug therapy; Z68.22 Body mass index [BMI] 22.0-22.9, adult
CPT/HCPCS: 96374; G0463; J0696; J1642

== ENCOUNTER → 2017-12-10 | Outpatient (CLI) | payer MEDICARE, OTHER ==
[~2017-12-10] MED LIST changes: -BACITRACIN TOP OINT 1 UD PKG TOP ONE; -cefTRIAXone 1GM/10ml IVPUSH 10 ML IV ONE
[2017-12-10 12:23] VITALS: BP 138/63
[2017-12-10 13:35] VITALS: BP 119/57
[2017-12-10 15:23] LABS: Urine Blood 2+ /uL (Negative); Urine Specific Gravity 1.013 (1.001-1.035)
== END | disposition home or self-care (01) ==
LOC: CHF HDHVI 12:46
PROVIDERS: ATTEND Internal Medicine Cardiovascular Disease
DX: N39.0 Urinary tract infection, site not specified (principal); I13.0 Hypertensive heart and chronic kidney disease with heart failure and stage 1 through stage 4 chronic kidney disease, or unspecified chronic kidney disease; E11.22 Type 2 diabetes mellitus with diabetic chronic kidney disease; N18.9 Chronic kidney disease, unspecified; I50.9 Heart failure, unspecified; M10.9 Gout, unspecified
CPT/HCPCS: 81003; 87086; 87088; 87186; G0463

== ENCOUNTER → 2017-12-17 | Outpatient (CLI) | payer MEDICARE, OTHER ==
[~2017-12-17] MED LIST changes: +AMLO5TAB13 PO; -AMLO5TAB2 PO
[2017-12-17 10:55] VITALS: BP 128/63
[2017-12-17 12:55] VITALS: BP 132/61
== END | disposition home or self-care (01) ==
LOC: CHF HDHVI 11:07
PROVIDERS: ATTEND Internal Medicine Cardiovascular Disease
DX: I27.21 Secondary pulmonary arterial hypertension (principal); E87.70 Fluid overload, unspecified; I89.0 Lymphedema, not elsewhere classified; I13.0 Hypertensive heart and chronic kidney disease with heart failure and stage 1 through stage 4 chronic kidney disease, or unspecified chronic kidney disease; E11.22 Type 2 diabetes mellitus with diabetic chronic kidney disease; N18.9 Chronic kidney disease, unspecified; I50.9 Heart failure, unspecified; M10.9 Gout, unspecified
CPT/HCPCS: G0463

== ENCOUNTER → 2018-01-17 | Outpatient (CLI) | payer MEDICARE, OTHER ==
[~2018-01-17] VITALS: Ht 30.5 cm; Wt 0.5 kg
[~2018-01-17] MED LIST changes: +InsuLIN REG 1unit/0.01ml Soln (100units/ml) IV ONE; +InsuLIN REG 1unit/0.01ml Soln (100units/ml) ONE; +InsuLIN REG 1unit/0.01ml Soln (100units/ml) SC ONE; +SODIUM CHLORIDE 0.9% 1,000 ML IV SCH; +SODIUM CHLORIDE 0.9% 500 ML IV SCH
[2018-01-17 14:40] LABS: Basophils # (auto) 0.1 uL; Basophils % (auto) 1.5 % (0.0-2.0); Eosinophils # (auto) 0.3 uL; Eosinophils % (auto) 7.6 % (0.0-7.0); Lymphocytes # (auto) 0.6 uL; Lymphocytes % (auto) 14.9 % (10.0-50.0); Mean Corpuscular Hemoglobin 30.3 pg (28.0-32.0); Mean Corpuscular Volume 94.4 fL (80.0-100.0); Monocytes # (auto) 0.3 uL; Monocytes % (auto) 7.9 % (0.0-12.0); Neutrophils # (auto) 2.9 uL; Neutrophils % (auto) 68.1 % (37.0-80.0); Platelet Count (auto) 85 10^3/uL (140-450); Red Blood Cells 2.96 10^6/uL (4.0-5.20); Red Cell Distribution Width 17.9 % (11.8-14.3); White Blood Cell 4.3 10^3/uL (4.4-10.8)
[2018-01-17 14:46] LABS: Calcium 8.9 mg/dL (8.5-10.1); Potassium 4.7 mmol/L (3.5-5.1)
[2018-01-17 14:55] LABS: BUN/Creatinine Ratio 24.8; Bilirubin, Total 0.5 mg/dL (0.2-1.0); Total Protein 6.7 g/dL (6.4-8.2)
[2018-01-17 16:40] VITALS: BP 136/67
== END | disposition home or self-care (01) ==
LOC: CHF HDHVI 13:08
PROVIDERS: ATTEND Internal Medicine Cardiovascular Disease
DX: E11.65 Type 2 diabetes mellitus with hyperglycemia (principal); I13.0 Hypertensive heart and chronic kidney disease with heart failure and stage 1 through stage 4 chronic kidney disease, or unspecified chronic kidney disease; I50.9 Heart failure, unspecified; N18.9 Chronic kidney disease, unspecified; D63.8 Anemia in other chronic diseases classified elsewhere; E11.22 Type 2 diabetes mellitus with diabetic chronic kidney disease; I89.0 Lymphedema, not elsewhere classified; M10.9 Gout, unspecified; Z45.2 Encounter for adjustment and management of vascular access device; Z87.440 Personal history of urinary (tract) infections
CPT/HCPCS: 36415; 80053; 82962; 83880; 85025; 96361; 96372; 96374; G0463; J1642; J1815; J7030; J7040; 96366; 96375

== ENCOUNTER → 2018-01-25 | Outpatient (CLI) | payer MEDICARE, OTHER ==
[~2018-01-25] MED LIST changes: -InsuLIN REG 1unit/0.01ml Soln (100units/ml) IV ONE; -InsuLIN REG 1unit/0.01ml Soln (100units/ml) ONE; -InsuLIN REG 1unit/0.01ml Soln (100units/ml) SC ONE; -SODIUM CHLORIDE 0.9% 1,000 ML IV SCH; -SODIUM CHLORIDE 0.9% 500 ML IV SCH
[2018-01-25 14:00] VITALS: BP 126/62
[2018-01-25 16:10] LABS: Basophils # (auto) 0.1 uL; Basophils % (auto) 1.4 % (0.0-2.0); Eosinophils # (auto) 0.5 uL; Eosinophils % (auto) 6.9 % (0.0-7.0); Hematocrit 29.2 % (36.0-46.0); Hemoglobin 9.8 g/dL (12.2-16.2); Lymphocytes # (auto) 0.9 uL; Lymphocytes % (auto) 12.9 % (10.0-50.0); Mean Corpuscular Hemoglobin 30.6 pg (28.0-32.0); Mean Corpuscular Hgb Conc. 33.4 g/dL (32.0-36.0); Mean Corpuscular Volume 91.4 fL (80.0-100.0); Monocytes # (auto) 0.3 uL; Monocytes % (auto) 4.9 % (0.0-12.0); Neutrophils % (auto) 73.9 % (37.0-80.0); Nucleated Red Blood Cells % 0.1 %; Platelet Count (auto) 126 10^3/uL (140-450); Red Cell Distribution Width 18.1 % (11.8-14.3); White Blood Cell 6.7 10^3/uL (4.4-10.8)
[2018-01-25 16:26] LABS: Potassium 4.4 mmol/L (3.5-5.1)
[2018-01-25 16:29] LABS: BUN/Creatinine Ratio 33.5; Bilirubin, Total 0.5 mg/dL (0.2-1.0); Total Protein 6.7 g/dL (6.4-8.2)
== END | disposition home or self-care (01) ==
LOC: CHF HDHVI 13:00
PROVIDERS: ATTEND Internal Medicine Cardiovascular Disease
DX: Z45.2 Encounter for adjustment and management of vascular access device (principal); I13.0 Hypertensive heart and chronic kidney disease with heart failure and stage 1 through stage 4 chronic kidney disease, or unspecified chronic kidney disease; E11.22 Type 2 diabetes mellitus with diabetic chronic kidney disease; N18.9 Chronic kidney disease, unspecified; D63.1 Anemia in chronic kidney disease; I89.0 Lymphedema, not elsewhere classified; M10.9 Gout, unspecified; E87.70 Fluid overload, unspecified; N39.0 Urinary tract infection, site not specified
CPT/HCPCS: 36415; 80053; 82962; 85025; 96523; G0463; J1642

== ENCOUNTER → 2018-02-09 | Outpatient (CLI) | payer MEDICARE, OTHER ==
[2018-02-09 09:25] VITALS: BP 115/50
[2018-02-09 11:49] LABS: Basophils # (auto) 0.1 uL; Basophils % (auto) 2.4 % (0.0-2.0); Eosinophils # (auto) 0.7 uL; Eosinophils % (auto) 14.4 % (0.0-7.0); Hematocrit 29.8 % (36.0-46.0); Hemoglobin 9.6 g/dL (12.2-16.2); Lymphocytes # (auto) 0.9 uL; Lymphocytes % (auto) 17.7 % (10.0-50.0); Mean Corpuscular Hemoglobin 29.5 pg (28.0-32.0); Mean Corpuscular Hgb Conc. 32.4 g/dL (32.0-36.0); Mean Corpuscular Volume 91.2 fL (80.0-100.0); Monocytes # (auto) 0.4 uL; Monocytes % (auto) 7.4 % (0.0-12.0); Neutrophils % (auto) 58.1 % (37.0-80.0); Nucleated Red Blood Cells % 0.1 %; Platelet Count (auto) 151 10^3/uL (140-450); Red Blood Cells 3.27 10^6/uL (4.0-5.20); White Blood Cell 5.1 10^3/uL (4.4-10.8)
[2018-02-09 12:07] LABS: Calcium 8.6 mg/dL (8.5-10.1); Potassium 4.5 mmol/L (3.5-5.1)
[2018-02-09 12:12] LABS: Albumin 2.9 g/dL (3.4-5.0); BUN/Creatinine Ratio 28.7; Bilirubin, Total 0.4 mg/dL (0.2-1.0); Total Protein 6.6 g/dL (6.4-8.2)
== END | disposition home or self-care (01) ==
LOC: CHF HDHVI 09:38
PROVIDERS: ATTEND Internal Medicine Cardiovascular Disease
DX: I13.0 Hypertensive heart and chronic kidney disease with heart failure and stage 1 through stage 4 chronic kidney disease, or unspecified chronic kidney disease (principal); I50.9 Heart failure, unspecified; E11.22 Type 2 diabetes mellitus with diabetic chronic kidney disease; N18.9 Chronic kidney disease, unspecified; D63.8 Anemia in other chronic diseases classified elsewhere; M10.9 Gout, unspecified; I89.0 Lymphedema, not elsewhere classified; Z45.2 Encounter for adjustment and management of vascular access device; Z87.440 Personal history of urinary (tract) infections
CPT/HCPCS: 36415; 80053; 83036; 85025; G0463; J1642

== ENCOUNTER → 2018-03-15 | Outpatient (CLI) | payer MEDICARE, OTHER | END | disposition home or self-care (01) | LOC: Rad HDHVI 11:06 | PROVIDERS: ATTEND Internal Medicine Cardiovascular Disease | DX: I35.0 Nonrheumatic aortic (valve) stenosis (principal); I70.0 Atherosclerosis of aorta; I13.0 Hypertensive heart and chronic kidney disease with heart failure and stage 1 through stage 4 chronic kidney disease, or unspecified chronic kidney disease; E11.22 Type 2 diabetes mellitus with diabetic chronic kidney disease; N18.9 Chronic kidney disease, unspecified; I50.33 Acute on chronic diastolic (congestive) heart failure | CPT/HCPCS: 93306 ==

== ENCOUNTER → 2018-03-23 | Outpatient (CLI) | payer MEDICARE, OTHER ==
[~2018-03-23] MED LIST changes: +CYANOCOBALAMIN (B-12) 1000 MCG/1 ML VIAL IM ONE; +CYANOCOBALAMIN (B-12) 1000 MCG/1 ML VIAL ONE; +CYANOCOBALAMIN (B-12) 1000 MCG/1 ML VIAL SUBCUT SCH
[2018-03-23 14:00] VITALS: BP 133/60
--- NOTE | 2018-03-23 14:00 | NUR ---
CHF PT TO CHF CLINIC FOR MD [facility] CARDIODYNAMICS, 6 MW, LABS MAY USE PORT. VIT B 12 1000MCG INJECTION.
--- NOTE | 2018-03-23 14:25 | NUR ---
CHF Diandra Cath Insertion 20 gauge Diandra Cath inserted using sterile technique in the upper chest with occlusive dressing over dominique needle. Patient tolerated procedure well. Ordered labs drawn and sent. See e-MAR for medications given during this visit. Diandra Cath Removal Dominique needle D/C'd after Heparin flush per protocol. See e-MAR for medications given during this visit. Sterile occlusive dressing to site. Patient tolerated procedure well. Site benign post infusion.
--- NOTE | 2018-03-23 14:25 | NUR ---
CHF VIT B 12 1000MCG INJECTION R DELTOID. PT TOLERATED WELL.
[2018-03-23 15:35] VITALS: BP 130/70
--- NOTE | 2018-03-23 15:35 | NUR ---
CHF Discharge Instructions See e-MAR for any mediations given with this visit. Patient education given on disease process. Patient verbalized understanding. Previous labs reviewed. Patient discharged in stable condition with after care instructions and follow up appointment.
[2018-03-23 16:22] LABS: BUN/Creatinine Ratio 30.5; Calcium 8.9 mg/dL (8.5-10.1); Potassium 4.2 mmol/L (3.5-5.1)
[2018-03-23 16:23] LABS: Basophils # (auto) 0.1 uL; Basophils % (auto) 2.5 % (0.0-2.0); Eosinophils # (auto) 0.6 uL; Eosinophils % (auto) 13.3 % (0.0-7.0); Hematocrit 29.1 % (36.0-46.0); Hemoglobin 9.7 g/dL (12.2-16.2); Lymphocytes # (auto) 0.9 uL; Lymphocytes % (auto) 19.2 % (10.0-50.0); Mean Corpuscular Hemoglobin 29.8 pg (28.0-32.0); Mean Corpuscular Hgb Conc. 33.3 g/dL (32.0-36.0); Mean Corpuscular Volume 89.5 fL (80.0-100.0); Monocytes # (auto) 0.3 uL; Monocytes % (auto) 7.5 % (0.0-12.0); Neutrophils # (auto) 2.6 uL; Neutrophils % (auto) 57.5 % (37.0-80.0); Nucleated Red Blood Cells % 0.1 %; Platelet Count (auto) 130 10^3/uL (140-450); Red Blood Cells 3.25 10^6/uL (4.0-5.20); Red Cell Distribution Width 17.5 % (11.8-14.3); White Blood Cell 4.5 10^3/uL (4.4-10.8)
== END | disposition home or self-care (01) ==
LOC: CHF HDHVI 14:06
PROVIDERS: ATTEND Internal Medicine Cardiovascular Disease
DX: D51.9 Vitamin B12 deficiency anemia, unspecified (principal); E83.40 Disorders of magnesium metabolism, unspecified; I13.2 Hypertensive heart and chronic kidney disease with heart failure and with stage 5 chronic kidney disease, or end stage renal disease; E11.22 Type 2 diabetes mellitus with diabetic chronic kidney disease; N18.6 End stage renal disease; I50.42 Chronic combined systolic (congestive) and diastolic (congestive) heart failure; I25.10 Atherosclerotic heart disease of native coronary artery without angina pectoris; E11.21 Type 2 diabetes mellitus with diabetic nephropathy; E11.40 Type 2 diabetes mellitus with diabetic neuropathy, unspecified; E11.51 Type 2 diabetes mellitus with diabetic peripheral angiopathy without gangrene; I27.21 Secondary pulmonary arterial hypertension; E03.9 Hypothyroidism, unspecified; I70.0 Atherosclerosis of aorta; F03.90 Unspecified dementia, unspecified severity, without behavioral disturbance, psychotic disturbance, mood disturbance, and anxiety; E78.00 Pure hypercholesterolemia, unspecified; E78.5 Hyperlipidemia, unspecified; I42.9 Cardiomyopathy, unspecified; I89.0 Lymphedema, not elsewhere classified; E44.0 Moderate protein-calorie malnutrition; I08.3 Combined rheumatic disorders of mitral, aortic and tricuspid valves; K21.9 Gastro-esophageal reflux disease without esophagitis; Z85.3 Personal history of malignant neoplasm of breast; Z86.73 Personal history of transient ischemic attack (TIA), and cerebral infarction without residual deficits; Z79.4 Long term (current) use of insulin; Z79.82 Long term (current) use of aspirin; Z79.899 Other long term (current) drug therapy; Z95.1 Presence of aortocoronary bypass graft; Z90.710 Acquired absence of both cervix and uterus; Z90.49 Acquired absence of other specified parts of digestive tract
CPT/HCPCS: 36415; 80048; 83735; 85025; 93701; 94618; 96372; G0463; J1642; J3420; 96523

== ENCOUNTER → 2018-04-06 | Outpatient (CLI) | payer MEDICARE, OTHER ==
[~2018-04-06] MED LIST changes: -CYANOCOBALAMIN (B-12) 1000 MCG/1 ML VIAL IM ONE; -CYANOCOBALAMIN (B-12) 1000 MCG/1 ML VIAL ONE; -CYANOCOBALAMIN (B-12) 1000 MCG/1 ML VIAL SUBCUT SCH
--- NOTE | 2018-04-06 11:05 | NUR ---
CHF PT TO CHF CLINIC FOR CHF/PAH CLINIC. FOR MS MORRIS ORDERD LAB DRAW VIA PORT A CATH. ADEMPAS 2.5 MG TID.
--- NOTE | 2018-04-06 11:40 | NUR ---
CHF Diandra Cath Insertion 20 gauge Diandra Cath inserted using sterile technique in the upper chest with occlusive dressing over dominique needle. Patient tolerated procedure well. Ordered labs drawn and sent. See e-MAR for medications given during this visit.
--- NOTE | 2018-04-06 11:45 | NUR ---
CHF Diandra Cath Removal Sawyer needle D/C'd after Heparin flush per protocol. See e-MAR for medications given during this visit. Sterile occlusive dressing to site. Patient tolerated procedure well. Site benign post infusion.
[2018-04-06 11:50] VITALS: BP 115/55
--- NOTE | 2018-04-06 11:50 | NUR ---
CHF Discharge Instructions See e-MAR for any mediations given with this visit. Patient education given on disease process. Patient verbalized understanding. Previous labs reviewed. Patient discharged in stable condition with after care instructions and follow up appointment. FOLLOW UP 05/09/18 FOR LAB DRAW, CARDIODYNAMICS AND VIT B 12 INJECTION.
[2018-04-06 16:29] LABS: BUN/Creatinine Ratio 30.3; Calcium 9.1 mg/dL (8.5-10.1); Magnesium 2.4 mg/dL (1.6-2.6); Potassium 4.1 mmol/L (3.5-5.1)
[2018-04-06 16:36] LABS: Basophils # (auto) 0.1 uL; Basophils % (auto) 2.4 % (0.0-2.0); Eosinophils # (auto) 0.6 uL; Eosinophils % (auto) 11.1 % (0.0-7.0); Hematocrit 29.2 % (36.0-46.0); Hemoglobin 9.8 g/dL (12.2-16.2); Lymphocytes # (auto) 0.8 uL; Lymphocytes % (auto) 14.6 % (10.0-50.0); Mean Corpuscular Hemoglobin 30.1 pg (28.0-32.0); Mean Corpuscular Hgb Conc. 33.6 g/dL (32.0-36.0); Mean Corpuscular Volume 89.7 fL (80.0-100.0); Monocytes # (auto) 0.4 uL; Neutrophils # (auto) 3.4 uL; Neutrophils % (auto) 63.9 % (37.0-80.0); Nucleated Red Blood Cells % 0.1 %; Platelet Count (auto) 119 10^3/uL (140-450); Red Blood Cells 3.26 10^6/uL (4.0-5.20); Red Cell Distribution Width 17.4 % (11.8-14.3); White Blood Cell 5.3 10^3/uL (4.4-10.8)
== END | disposition home or self-care (01) ==
LOC: CHF HDHVI 11:16
PROVIDERS: ATTEND Internal Medicine Cardiovascular Disease
DX: E83.40 Disorders of magnesium metabolism, unspecified (principal); I12.9 Hypertensive chronic kidney disease with stage 1 through stage 4 chronic kidney disease, or unspecified chronic kidney disease; E11.22 Type 2 diabetes mellitus with diabetic chronic kidney disease; N18.9 Chronic kidney disease, unspecified; D64.9 Anemia, unspecified
CPT/HCPCS: 36415; 80048; 83735; 85025; J1642

== ENCOUNTER → 2018-05-09 | Outpatient (CLI) | payer MEDICARE, OTHER ==
--- NOTE | 2018-05-09 11:02 | NUR ---
CHF PT TO CHF CLINIC FOR PAH/CHF [facility] AND MD MORRIS ORDERED FULL LABS, August PORT A CATH FOR ACCESS AND MD MORR[facility] ORDERED CARDIODYNAMICS.
[2018-05-09 11:35] VITALS: BP 125/59
[2018-05-09 15:58] LABS: Basophils # (auto) 0.1 uL; Basophils % (auto) 3.4 % (0.0-2.0); Eosinophils # (auto) 0.4 uL; Eosinophils % (auto) 11.2 % (0.0-7.0); Hematocrit 27.9 % (36.0-46.0); Hemoglobin 9.4 g/dL (12.2-16.2); Lymphocytes # (auto) 0.7 uL; Lymphocytes % (auto) 18.3 % (10.0-50.0); Mean Corpuscular Hgb Conc. 33.5 g/dL (32.0-36.0); Mean Corpuscular Volume 89.4 fL (80.0-100.0); Monocytes # (auto) 0.4 uL; Monocytes % (auto) 9.8 % (0.0-12.0); Neutrophils # (auto) 2.1 uL; Neutrophils % (auto) 57.3 % (37.0-80.0); Platelet Count (auto) 128 10^3/uL (140-450); Red Blood Cells 3.13 10^6/uL (4.0-5.20); Red Cell Distribution Width 18.2 % (11.8-14.3); White Blood Cell 3.7 10^3/uL (4.4-10.8)
[2018-05-09 16:14] LABS: Calcium 8.6 mg/dL (8.5-10.1); Potassium 4.4 mmol/L (3.5-5.1)
[2018-05-09 16:17] LABS: Bilirubin, Total 0.3 mg/dL (0.2-1.0); Total Protein 6.3 g/dL (6.4-8.2)
== END | disposition home or self-care (01) ==
LOC: CHF HDHVI 10:42
PROVIDERS: ATTEND Internal Medicine Cardiovascular Disease
DX: I13.2 Hypertensive heart and chronic kidney disease with heart failure and with stage 5 chronic kidney disease, or end stage renal disease (principal); I50.42 Chronic combined systolic (congestive) and diastolic (congestive) heart failure; N18.6 End stage renal disease; I25.10 Atherosclerotic heart disease of native coronary artery without angina pectoris; D64.9 Anemia, unspecified; E55.9 Vitamin D deficiency, unspecified; D51.9 Vitamin B12 deficiency anemia, unspecified; I10 Essential (primary) hypertension; E78.5 Hyperlipidemia, unspecified; E03.9 Hypothyroidism, unspecified; E78.00 Pure hypercholesterolemia, unspecified; E11.22 Type 2 diabetes mellitus with diabetic chronic kidney disease; E11.40 Type 2 diabetes mellitus with diabetic neuropathy, unspecified; E11.21 Type 2 diabetes mellitus with diabetic nephropathy; E11.51 Type 2 diabetes mellitus with diabetic peripheral angiopathy without gangrene; G40.909 Epilepsy, unspecified, not intractable, without status epilepticus; Z79.82 Long term (current) use of aspirin; Z79.4 Long term (current) use of insulin; Z85.3 Personal history of malignant neoplasm of breast; Z86.73 Personal history of transient ischemic attack (TIA), and cerebral infarction without residual deficits; Z95.1 Presence of aortocoronary bypass graft; E11.65 Type 2 diabetes mellitus with hyperglycemia; Z95.0 Presence of cardiac pacemaker
CPT/HCPCS: 36415; 80053; 82306; 82607; 82962; 85025; 93701; G0463; J1642; 96523

== ENCOUNTER → 2018-05-18 | Outpatient (CLI) | payer MEDICARE, OTHER ==
[~2018-05-18] VITALS: Ht 30.5 cm; Wt 72.1 kg
[~2018-05-18] MED LIST changes: +CYANOCOBALAMIN (B-12) 1000 MCG/1 ML VIAL IM ONE; +CYANOCOBALAMIN (B-12) 1000 MCG/1 ML VIAL ONE
[2018-05-18 13:45] VITALS: BP 123/55
[2018-05-18 14:22] VITALS: BP 146/63
--- NOTE | 2018-05-18 16:04 | NUR ---
Discharge Instructions See e-MAR for any mediations given with this visit. Patient education given on disease process. Patient verbalized understanding. Previous labs reviewed. Patient discharged in stable condition with after care instructions and follow up appointment. MEDICATIONS BENADRYL 1000MCG IM GIVEN BY GODWIN MAGAÑA Addendum: 05/18/18 at 1610 by KHUSHBOO SCHRADER RN RN NH BENADRYL NOT GIVEN B12 IM LEFT DELTOID GIVEN BY GODWIN MAGAÑA
== END | disposition home or self-care (01) ==
LOC: CHF HDHVI 14:07
PROVIDERS: ATTEND Internal Medicine Cardiovascular Disease
DX: I13.11 Hypertensive heart and chronic kidney disease without heart failure, with stage 5 chronic kidney disease, or end stage renal disease (principal); E11.22 Type 2 diabetes mellitus with diabetic chronic kidney disease; I50.42 Chronic combined systolic (congestive) and diastolic (congestive) heart failure; N18.6 End stage renal disease; D64.9 Anemia, unspecified; I25.10 Atherosclerotic heart disease of native coronary artery without angina pectoris; I27.21 Secondary pulmonary arterial hypertension; I42.9 Cardiomyopathy, unspecified; E78.5 Hyperlipidemia, unspecified; E03.9 Hypothyroidism, unspecified; E78.00 Pure hypercholesterolemia, unspecified; E11.40 Type 2 diabetes mellitus with diabetic neuropathy, unspecified; E11.51 Type 2 diabetes mellitus with diabetic peripheral angiopathy without gangrene; F03.90 Unspecified dementia, unspecified severity, without behavioral disturbance, psychotic disturbance, mood disturbance, and anxiety; K21.9 Gastro-esophageal reflux disease without esophagitis; Z90.49 Acquired absence of other specified parts of digestive tract; Z79.82 Long term (current) use of aspirin; Z79.4 Long term (current) use of insulin; Z79.899 Other long term (current) drug therapy; Z90.710 Acquired absence of both cervix and uterus; Z87.440 Personal history of urinary (tract) infections; Z95.1 Presence of aortocoronary bypass graft; Z86.73 Personal history of transient ischemic attack (TIA), and cerebral infarction without residual deficits; Z85.3 Personal history of malignant neoplasm of breast
CPT/HCPCS: 93701; 94618; 96372; G0463; J3420

== ENCOUNTER → 2018-06-06 | Outpatient (CLI) | payer MEDICARE, OTHER ==
[~2018-06-06] MED LIST changes: -CYANOCOBALAMIN (B-12) 1000 MCG/1 ML VIAL IM ONE; -CYANOCOBALAMIN (B-12) 1000 MCG/1 ML VIAL ONE
--- NOTE | 2018-06-06 13:30 | NUR ---
Scheduled Diandra Cath Flush 20 gauge Sawyer needle inserted using sterile technique in the R upper chest. Diandra Cath flushed with 20 mL's of 0.9% NS followed by 500 units per 5mL's Heparin. Sawyer Needle D/C'd with sterile occlusive dressing to site. Patient tolerated procedure well. See e-MAR for medications given during this visit.
[2018-06-06 13:45] VITALS: BP 128/63
--- NOTE | 2018-06-06 13:45 | NUR ---
CHF CLINIC Discharge Instructions See e-MAR for any mediations given with this visit. Patient education given on disease process. Patient verbalized understanding. Previous labs reviewed. Patient discharged in stable condition with after care instructions and follow up appointment. NOTE LABS DRAWN FROM PORT BY SHELTON MAGAÑA
[2018-06-06 16:16] LABS: BUN/Creatinine Ratio 29.9; Calcium 8.7 mg/dL (8.5-10.1); Magnesium 2.3 mg/dL (1.6-2.6); Potassium 4.9 mmol/L (3.5-5.1)
[2018-06-06 16:38] LABS: Basophils # (auto) 0.1 uL; Basophils % (auto) 2.6 % (0.0-2.0); Eosinophils # (auto) 0.3 uL; Eosinophils % (auto) 7.5 % (0.0-7.0); Hematocrit 26.5 % (36.0-46.0); Hemoglobin 8.6 g/dL (12.2-16.2); Lymphocytes # (auto) 0.6 uL; Lymphocytes % (auto) 12.9 % (10.0-50.0); Mean Corpuscular Hemoglobin 29.8 pg (28.0-32.0); Mean Corpuscular Hgb Conc. 32.3 g/dL (32.0-36.0); Mean Corpuscular Volume 92.4 fL (80.0-100.0); Monocytes # (auto) 0.4 uL; Monocytes % (auto) 8.6 % (0.0-12.0); Neutrophils # (auto) 2.9 uL; Neutrophils % (auto) 68.4 % (37.0-80.0); Platelet Count (auto) 120 10^3/uL (140-450); Red Blood Cells 2.87 10^6/uL (4.0-5.20); Red Cell Distribution Width 18.2 % (11.8-14.3); White Blood Cell 4.3 10^3/uL (4.4-10.8)
== END | disposition home or self-care (01) ==
LOC: CHF HDHVI 11:58
PROVIDERS: ATTEND Internal Medicine Cardiovascular Disease
DX: E11.9 Type 2 diabetes mellitus without complications (principal); E83.40 Disorders of magnesium metabolism, unspecified; I10 Essential (primary) hypertension; D64.9 Anemia, unspecified; I27.21 Secondary pulmonary arterial hypertension
CPT/HCPCS: 36415; 80048; 83036; 83735; 85025; G0463

== ENCOUNTER → 2018-07-18 | Outpatient (CLI) | payer MEDICARE, OTHER ==
[~2018-07-18] MED LIST changes: +CYANOCOBALAMIN (B-12) 1000 MCG/1 ML VIAL IM ONE; +CYANOCOBALAMIN (B-12) 1000 MCG/1 ML VIAL ONE
[2018-07-18 13:56] VITALS: BP 129/55
--- NOTE | 2018-07-18 13:56 | NUR ---
CHF PT ARRIVED AT CHF CLINIC FOR FOLLOW UP AND CARDIODYNAMICS. VITAL SIGNS OBTAINED 0 DISTRESS EXPLAINED PLAN OF CARE PT VERBALIZED UNDERSTANDING
--- NOTE | 2018-07-18 14:15 | NUR ---
Diandra Cath Insertion 20 gauge Diandra Cath inserted using sterile technique in the R upper chest with occlusive dressing over dominique needle. Patient tolerated procedure well. Ordered labs drawn and sent. See e-MAR for medications given during this visit.
--- NOTE | 2018-07-18 14:35 | NUR ---
Port Needle Dressing Change Port Needle Dressing Change provided. See e-MAR for medications given during this visit. Line Heparinized. Vital signs stable. Pt tolerated procedure well.
--- NOTE | 2018-07-18 14:56 | NUR ---
CHF CARDIODYNAMICS COMPLETED
[2018-07-18 15:00] VITALS: BP 109/67
--- NOTE | 2018-07-18 15:00 | NUR ---
Discharge Instructions See e-MAR for any mediations given with this visit. Patient education given on disease process. Patient verbalized understanding. Previous labs reviewed. Patient discharged in stable condition with after care instructions and follow up appointment. MEDICATIONS VITAMIN B12 1000MCG IM X 1 HEPARIN 500 UNITS X 1
[2018-07-18 16:03] LABS: Albumin 3.2 g/dL (3.4-5.0); Potassium 4.1 mmol/L (3.5-5.1)
[2018-07-18 16:06] LABS: BUN/Creatinine Ratio 27.6
[2018-07-18 16:18] LABS: Bilirubin, Total 0.5 mg/dL (0.2-1.0); Total Protein 6.4 g/dL (6.4-8.2)
[2018-07-18 16:34] LABS: Basophils # (auto) 0.1 uL; Basophils % (auto) 0.9 % (0.0-2.0); Eosinophils # (auto) 0.3 uL; Eosinophils % (auto) 4.5 % (0.0-7.0); Hematocrit 28.8 % (36.0-46.0); Hemoglobin 9.4 g/dL (12.2-16.2); Lymphocytes # (auto) 0.9 uL; Lymphocytes % (auto) 15.3 % (10.0-50.0); Mean Corpuscular Hemoglobin 29.3 pg (28.0-32.0); Mean Corpuscular Hgb Conc. 32.7 g/dL (32.0-36.0); Mean Corpuscular Volume 89.8 fL (80.0-100.0); Monocytes # (auto) 0.4 uL; Monocytes % (auto) 6.6 % (0.0-12.0); Neutrophils # (auto) 4.1 uL; Neutrophils % (auto) 72.7 % (37.0-80.0); Platelet Count (auto) 123 10^3/uL (140-450); Red Blood Cells 3.21 10^6/uL (4.0-5.20); Red Cell Distribution Width 18.6 % (11.8-14.3); White Blood Cell 5.6 10^3/uL (4.4-10.8)
== END | disposition home or self-care (01) ==
LOC: CHF HDHVI 14:56
PROVIDERS: ATTEND Internal Medicine Cardiovascular Disease
DX: D64.9 Anemia, unspecified (principal); E61.2 Magnesium deficiency; I13.2 Hypertensive heart and chronic kidney disease with heart failure and with stage 5 chronic kidney disease, or end stage renal disease; E11.22 Type 2 diabetes mellitus with diabetic chronic kidney disease; N18.6 End stage renal disease; I50.42 Chronic combined systolic (congestive) and diastolic (congestive) heart failure; I25.10 Atherosclerotic heart disease of native coronary artery without angina pectoris; K21.9 Gastro-esophageal reflux disease without esophagitis; E11.40 Type 2 diabetes mellitus with diabetic neuropathy, unspecified; E11.51 Type 2 diabetes mellitus with diabetic peripheral angiopathy without gangrene; I42.9 Cardiomyopathy, unspecified; E78.00 Pure hypercholesterolemia, unspecified; E78.5 Hyperlipidemia, unspecified; E03.9 Hypothyroidism, unspecified; Z79.82 Long term (current) use of aspirin; Z79.4 Long term (current) use of insulin; Z79.899 Other long term (current) drug therapy; Z95.0 Presence of cardiac pacemaker
CPT/HCPCS: 36415; 80053; 83735; 85025; 93701; 96372; G0463; J1642; J3420; 96523

== ENCOUNTER → 2018-09-21 | Outpatient (CLI) | payer MEDICARE, OTHER ==
--- NOTE | 2018-09-21 13:33 | NUR ---
CHF PT ARRIVED AT THE CHF CLINIC FOR CHF F/U, CARDIODYNAMICS/ PT A/O X 3 ALERT ORIENTED , V/S OBTAINED
--- NOTE | 2018-09-21 14:05 | NUR ---
Diandra Cath Removal Sawyer needle D/C'd after Heparin flush per protocol. See e-MAR for medications given during this visit. Sterile occlusive dressing to site. Patient tolerated procedure well. Site benign post infusion.
--- NOTE | 2018-09-21 14:05 | NUR ---
Diandra Cath Insertion 22 gauge Diandra Cath inserted using sterile technique in the R upper chest with occlusive dressing over dominique needle. Patient tolerated procedure well. Ordered labs drawn and sent. See e-MAR for medications given during this visit.
[2018-09-21 14:26] VITALS: BP 124/50
--- NOTE | 2018-09-21 14:26 | NUR ---
Discharge Instructions See e-MAR for any mediations given with this visit. Patient education given on disease process. Patient verbalized understanding. Previous labs reviewed. Patient discharged in stable condition with after care instructions and follow up appointment. MEDICATIONS 1410 HEPARIN 500 UNITS IVP X 1 1417 VITAMIN B12 1000 MCG IM X 1
[2018-09-21 15:52] LABS: Basophils # (auto) 0.1 uL; Basophils % (auto) 2.5 % (0.0-2.0); Eosinophils # (auto) 0.5 uL; Eosinophils % (auto) 10.9 % (0.0-7.0); Hematocrit 27.2 % (36.0-46.0); Hemoglobin 8.8 g/dL (12.2-16.2); Lymphocytes # (auto) 0.9 uL; Lymphocytes % (auto) 20.5 % (10.0-50.0); Mean Corpuscular Hemoglobin 28.8 pg (28.0-32.0); Mean Corpuscular Hgb Conc. 32.2 g/dL (32.0-36.0); Mean Corpuscular Volume 89.3 fL (80.0-100.0); Monocytes # (auto) 0.3 uL; Neutrophils # (auto) 2.5 uL; Neutrophils % (auto) 59.1 % (37.0-80.0); Platelet Count (auto) 124 10^3/uL (140-450); Red Blood Cells 3.04 10^6/uL (4.0-5.20); Red Cell Distribution Width 18.1 % (11.8-14.3); White Blood Cell 4.3 10^3/uL (4.4-10.8)
[2018-09-21 15:58] LABS: Calcium 9.3 mg/dL (8.5-10.1); Potassium 4.3 mmol/L (3.5-5.1)
[2018-09-21 16:01] LABS: BUN/Creatinine Ratio 25.4; Magnesium 2.4 mg/dL (1.6-2.6)
== END | disposition home or self-care (01) ==
LOC: CHF HDHVI 13:56
PROVIDERS: ATTEND Internal Medicine Cardiovascular Disease
DX: D64.9 Anemia, unspecified (principal); I27.21 Secondary pulmonary arterial hypertension; I13.0 Hypertensive heart and chronic kidney disease with heart failure and stage 1 through stage 4 chronic kidney disease, or unspecified chronic kidney disease; I50.9 Heart failure, unspecified; N18.9 Chronic kidney disease, unspecified; E83.40 Disorders of magnesium metabolism, unspecified; E11.9 Type 2 diabetes mellitus without complications
CPT/HCPCS: 36415; 80048; 82962; 83735; 83880; 85025; 96372; G0463; J1642; J3420

== ENCOUNTER → 2018-10-05 | Outpatient (CLI) | payer MEDICARE, OTHER ==
[~2018-10-05] MED LIST changes: -CYANOCOBALAMIN (B-12) 1000 MCG/1 ML VIAL IM ONE; -CYANOCOBALAMIN (B-12) 1000 MCG/1 ML VIAL ONE
[2018-10-05 12:04] VITALS: BP 118/55
[2018-10-05 12:40] VITALS: BP 131/61
--- NOTE | 2018-10-05 13:00 | NUR ---
IN FOR PAH EVALUATION. PT HAS SIGNIFICANT +4 SWELLING IN BLE. DENIES ASHLEIGH BOOTS. TOOK ASHLEIGH BOOTS OFF AFTER APPLICATION RECENTLY TO ALLOW FOR PERSONAL SHOWERING. LEFT ARM BRIO SENSOR REMOVED AND NEW SENSOR APPLIED PER INSTRUCTIONS. TOLERATED WELL. WITHOUT DISTRESS OR DISCOMFORT. Discharge Instructions See e-MAR for any mediations given with this visit. Patient education given on disease process. Patient verbalized understanding. Previous labs reviewed. Patient discharged in stable condition with after care instructions and follow up appointment IN 2 WEEKS.
== END | disposition home or self-care (01) ==
LOC: CHF HDHVI 14:05
PROVIDERS: ATTEND Internal Medicine Cardiovascular Disease
DX: I27.21 Secondary pulmonary arterial hypertension (principal); R53.83 Other fatigue; R06.00 Dyspnea, unspecified; I12.9 Hypertensive chronic kidney disease with stage 1 through stage 4 chronic kidney disease, or unspecified chronic kidney disease; E11.22 Type 2 diabetes mellitus with diabetic chronic kidney disease; N18.9 Chronic kidney disease, unspecified
CPT/HCPCS: 94618; G0463

== ENCOUNTER → 2018-10-19 | Outpatient (CLI) | payer MEDICARE, OTHER ==
[~2018-10-19] MED LIST changes: -AMLO5TAB13 PO; +AMLO5TAB15 PO; +ASPI-404 PO; -ASPI81TA27 PO; +CHOL20007 PO; +FUROSEMIDE 40 MG/4 ML VIAL IV ONE; +FUROSEMIDE 40 MG/4 ML VIAL ONE; +METO25TA62 PO; +POTASSIUM CHL 10 Meq TABLET PO ONE
[2018-10-19 11:49] VITALS: BP 118/47
[2018-10-19 13:05] VITALS: BP 132/60
--- NOTE | 2018-10-19 13:05 | NUR ---
CHF CLINIC Discharge Instructions See e-MAR for any mediations given with this visit. Patient education given on disease process. Patient verbalized understanding. Previous labs reviewed. Patient discharged in stable condition with after care instructions and follow up appointment. NOTE LASIX IVP ADMIN BY MUSA MAGAÑA. HEPARIN ADMIN BY MUSA MAGAÑA. POTASSIUM PO ADMIN BY MUSA MAGAÑA. BILAT ASHLEIGH BOOTS APPLIED.
[2018-10-19 15:42] LABS: Basophils # (auto) 0.1 uL; Basophils % (auto) 1.7 % (0.0-2.0); Eosinophils # (auto) 0.4 uL; Eosinophils % (auto) 8.6 % (0.0-7.0); Hematocrit 26.8 % (36.0-46.0); Hemoglobin 8.8 g/dL (12.2-16.2); Lymphocytes # (auto) 0.6 uL; Lymphocytes % (auto) 12.6 % (10.0-50.0); Mean Corpuscular Hemoglobin 29.7 pg (28.0-32.0); Mean Corpuscular Hgb Conc. 32.8 g/dL (32.0-36.0); Mean Corpuscular Volume 90.7 fL (80.0-100.0); Monocytes # (auto) 0.3 uL; Monocytes % (auto) 6.3 % (0.0-12.0); Neutrophils # (auto) 3.3 uL; Neutrophils % (auto) 70.8 % (37.0-80.0); Platelet Count (auto) 123 10^3/uL (140-450); Red Blood Cells 2.95 10^6/uL (4.0-5.20); Red Cell Distribution Width 18.6 % (11.8-14.3); White Blood Cell 4.6 10^3/uL (4.4-10.8)
[2018-10-19 15:53] LABS: Albumin 3.1 g/dL (3.4-5.0); Calcium 9.7 mg/dL (8.5-10.1); Potassium 4.3 mmol/L (3.5-5.1)
[2018-10-19 15:56] LABS: BUN/Creatinine Ratio 32.1; Bilirubin, Total 0.4 mg/dL (0.2-1.0); Total Protein 6.7 g/dL (6.4-8.2)
== END | disposition home or self-care (01) ==
LOC: CHF HDHVI 11:51
PROVIDERS: ATTEND Internal Medicine Cardiovascular Disease
DX: I13.0 Hypertensive heart and chronic kidney disease with heart failure and stage 1 through stage 4 chronic kidney disease, or unspecified chronic kidney disease (principal); E11.22 Type 2 diabetes mellitus with diabetic chronic kidney disease; I50.33 Acute on chronic diastolic (congestive) heart failure; N18.9 Chronic kidney disease, unspecified; I87.2 Venous insufficiency (chronic) (peripheral); I27.21 Secondary pulmonary arterial hypertension; E44.0 Moderate protein-calorie malnutrition
CPT/HCPCS: 36415; 80053; 82306; 82607; 83880; 85025; 96374; G0463; J1642; J1940

== ENCOUNTER 2018-10-26 10:26 | Inpatient (IN) | payer MEDICARE, OTHER ==
[~2018-10-26] VITALS: Ht 180.3 cm; Wt 84.0 kg
[~2018-10-26 10:26] MED LIST changes: -CHOL20007 PO; -FUROSEMIDE 40 MG/4 ML VIAL IV ONE; -FUROSEMIDE 40 MG/4 ML VIAL ONE; -METO25TA62 PO; -POTASSIUM CHL 10 Meq TABLET PO ONE
[2018-10-26 11:00] LABS: Basophils # (auto) 0.1 uL; Eosinophils # (auto) 0 uL; Hemoglobin 9.4 g/dL (12.2-16.2); Lymphocytes # (auto) 0.3 uL
[2018-10-26 11:01] LABS: Basophils % (auto) 0.4 % (0.0-2.0); Hematocrit 30.9 % (36.0-46.0); Lymphocytes % (auto) 2.5 % (10.0-50.0); Mean Corpuscular Hemoglobin 29.1 pg (28.0-32.0); Mean Corpuscular Hgb Conc. 30.5 g/dL (32.0-36.0); Mean Corpuscular Volume 95.5 fL (80.0-100.0); Monocytes % (auto) 8.7 % (0.0-12.0); Neutrophils # (auto) 10.5 uL; Neutrophils % (auto) 88.4 % (37.0-80.0); Platelet Count (auto) 183 10^3/uL (140-450); Red Blood Cells 3.24 10^6/uL (4.0-5.20); Red Cell Distribution Width 19.1 % (11.8-14.3); White Blood Cell 11.9 10^3/uL (4.4-10.8)
[2018-10-26 11:12] LABS: Albumin 2.7 g/dL (3.4-5.0); Magnesium 2.5 mg/dL (1.6-2.6); Potassium 4.6 mmol/L (3.5-5.1)
[2018-10-26 11:17] LABS: Lactic Acid w/Reflex 3.6 mmol/L (0.4-2.0)
[2018-10-26 11:20] LABS: BUN/Creatinine Ratio 26.4; Bilirubin, Total 0.8 mg/dL (0.2-1.0); Total Protein 6.3 g/dL (6.4-8.2)
[2018-10-26] MEDS ORDERED: SODIUM CHLORIDE 0.9% 1,000 ML IV ONE (12:45)
[2018-10-26 12:50] LABS: Urine Bacteria FEW /hpf (None Seen); Urine Blood Negative /uL (Negative); Urine Specific Gravity 1.015 (1.001-1.035); Urine WBC 38 /hpf (0 - 5)
[2018-10-26] MEDS ORDERED: DOPamine 1600MCG/ML D5W 250 ML IV SCH (13:17)
[2018-10-26] MEDS ORDERED: InsuLIN R (HUMAN) 100 UNITS in SODIUM CHL 0.9% 99 ML IV PRN (13:55)
[2018-10-26] MEDS ORDERED: cefTRIAXone 1GM/50ML D5W 50 ML IV ONE (14:00)
[2018-10-26] MEDS ORDERED: DEXTROSE (50%) 50ML SYRG IV PRN ×2 (14:00→20:00)
[2018-10-26] MEDS ORDERED: InsuLIN REG 1unit/0.01ml Soln (100units/ml) IV ONE (14:00)
[2018-10-26] MEDS ORDERED: InsuLIN R (HUMAN) 100 UNITS in SODIUM CHL 0.9% 99 ML IV SCH ×2 (14:00→20:00)
[2018-10-26] MEDS ORDERED: NOREPINEPHRINE 8 MG/250ML KIT 250 ML IV ONE (14:09)
[2018-10-26] MEDS: NOREPINEPHRINE 8 MG/250ML KIT 250 ML IV SCH (14:19)
[2018-10-26] MEDS ORDERED: MORPHINE SULF INJ 2 MG/ML SYRINGE 1ML IV PRN (14:30)
[2018-10-26] MEDS ORDERED: NITROGLYCERIN 0.4 MG SL TAB SL PRN (14:30)
[2018-10-26] MEDS: ACCU-CHEK COMFORT CURVE STRIP VI SCH ×7 (15:39→23:53)
[2018-10-26] MEDS: SODIUM BICARBONATE 50ML VIAL 50 ML in SOD CHL 0.45% 1,000 ML IV SCH (15:52)
[2018-10-26] MEDS: PHENYLEPHRINE INJ 20 MG in SODIUM CHL 0.9% 250 ML IV SCH (19:45)
[2018-10-26 20:30] LABS: Anion Gap 20 (5-15); Carbon Dioxide 12 mmol/L (21-32); Chloride 110 mmol/L (98-107); Potassium 3.6 mmol/L (3.5-5.1); Sodium 142 mmol/L (136-145)
[2018-10-26 20:32] LABS: BUN/Creatinine Ratio 25.6; GFR African American 11 mL/min; GFR Non-African American 9 mL/min; Phosphorus 5.5 mg/dL (2.5-4.90)
[2018-10-26 20:35] LABS: Glucose 491 mg/dL (74-106)
[2018-10-26 20:36] LABS: Blood Urea Nitrogen 120 mg/dL (7-18)
[2018-10-26] MEDS: FAMOTIDINE (10MG/ML) 2ML VL IV SCH (21:32)
[2018-10-26] MEDS ORDERED: RIOCIGUAT BASE PO SCH (22:00)
[2018-10-26] MEDS: InsuLIN R (HUMAN) 100 UNITS in SODIUM CHL 0.9% 99 ML IV SCH (22:30)
[2018-10-27] VITALS (27 sets, daily range): BP systolic 42–133; BP diastolic 24–73
[2018-10-27] MEDS: SODIUM BICARBONATE 50ML VIAL 50 ML in SOD CHL 0.45% 1,000 ML IV SCH ×2 (01:00→09:30)
[2018-10-27] MEDS ORDERED: InsuLIN REG 1unit/0.01ml Soln (100units/ml) ONE (01:23)
[2018-10-27] MEDS: ACCU-CHEK COMFORT CURVE STRIP VI SCH ×6 (01:29→06:14)
[2018-10-27] MEDS: InsuLIN R (HUMAN) 100 UNITS in SODIUM CHL 0.9% 99 ML IV SCH (01:30)
[2018-10-27] MEDS ORDERED: SODIUM BICARBONATE 8.4% INJ 50ML SYRINGE ONE (02:13)
[2018-10-27] MEDS ORDERED: InsuLIN R (HUMAN) 100 UNITS in SODIUM CHL 0.9% 99 ML IV SCH ×2 (04:25→06:00)
[2018-10-27 05:59] LABS: Albumin 2.6 g/dL (3.4-5.0); Calcium 7.3 mg/dL (8.5-10.1); Magnesium 2.2 mg/dL (1.6-2.6); Potassium 3.3 mmol/L (3.5-5.1)
[2018-10-27 06:04] LABS: BUN/Creatinine Ratio 27.5; Bilirubin, Total 0.5 mg/dL (0.2-1.0); Phosphorus 4.5 mg/dL (2.5-4.90); Total Protein 6.3 g/dL (6.4-8.2)
[2018-10-27 06:21] LABS: Hematocrit 33.2 % (36.0-46.0); Hemoglobin 10.6 g/dL (12.2-16.2); Mean Corpuscular Hemoglobin 28.5 pg (28.0-32.0); Mean Corpuscular Hgb Conc. 31.9 g/dL (32.0-36.0); Mean Corpuscular Volume 89.5 fL (80.0-100.0); Platelet Count (auto) 225 10^3/uL (140-450); Red Blood Cells 3.71 10^6/uL (4.0-5.20); Red Cell Distribution Width 18.4 % (11.8-14.3); White Blood Cell 17.6 10^3/uL (4.4-10.8)
[2018-10-27 06:28] LABS: Basophils % (manual) 0 (0.0-2.0); Blast Cells 0; Metamyelocytes % 0; Myelocytes % 0; Promyelocytes % 0; Reactive Lymphocytes 0
[2018-10-27 06:38] LABS: Band Neutrophils % (manual) 8; Eosinophils % (manual) 1 (0-7); Lymphocytes % (manual) 5 (10.0-50.0); Monocytes % (manual) 9 (0-12)
[2018-10-27] MEDS ORDERED: DEXTROSE (50%) 50ML SYRG IV PRN (06:45)
[2018-10-27] MEDS: InsuLIN REG 1unit/0.01ml Soln (100units/ml) SC SCH ×4 (08:00→20:00)
[2018-10-27] MEDS: FAMOTIDINE (10MG/ML) 2ML VL IV SCH ×2 (08:38→21:41)
[2018-10-27] MEDS: ASPirin-EC 81 mg tab PO SCH (08:38)
[2018-10-27] MEDS ORDERED: cefTRIAXone 1GM/50ML D5W 50 ML IV SCH (09:00)
[2018-10-27] MEDS: NOREPINEPHRINE 8 MG/250ML KIT 250 ML IV SCH ×3 (10:31→20:30)
[2018-10-27] MEDS ORDERED: SODIUM BICARBONATE 50ML VIAL 150 ML in SOD CHL 0.45% 1,000 ML IV SCH (15:00)
[2018-10-27] MEDS ORDERED: PIPERACILLIN-TAZOB 2.25GM 50 ML IV ONE (15:45)
--- NOTE | 2018-10-27 15:52 | NUR ---
WOUND CARE NOTE: Wound care in to see patient per wound care request regarding multiple skin integrity issue that are noted present on admission. E.DXander nurse took photograph of patient's wounds upon admission for reference. Patient is 83 years old female with admitting diagnosis of DKA. Patient is resting in hospital bed in E.. Rm. #5. She's awaiting ICU bed. Her eyes are closed, on O2 via NC, on Levophed. Patient appears to be in mild pain upon turning. She's max assist in turning and repositioning. Her Papa score is 12. Skin/wound assessment done with the assistance of patient's E.R. nurse, ARCHANA Francois. Noted patient's L upper sacrum has early 3x5cm open DTI and to her R lower sacrum is 3x3 intact early DTI (Deep tissue injury). Wounds are soft boggy to touch. L upper sacral wound is draining minimal serous drainage, no odor noted. On reports, patient was found down, unconscious in the bathroom for unknown amount of time. Mckenna care given, applied Z Guard cream and covered with upper sacrum with Opti foam sacral dressing. Noted 8x6cm intact ecchymosis to patient's posterior L lower leg/calf, no drainage/odor noted,left open to air.Patient's bilateral arms also noted with intact ecchymosis. Repositioned patient for comfort facing her Rt side, redistributed pressure points with pillows and elevated BLE on pillows. Patient tolerated well. ARCHANA Francois at bedside. RECOMMENDATION: BID/PRN dressing change to sacral wounds per MD order, Dietary consult, frequent turning and repositioning schedule as condition permits, redistribute pressure points with pillows, elevate BLE on pillows, continue monitoring by wound care while patient is hospitalized. Addendum: 10/27/18 at 1853 by Pippa Delcid RN Amended: Links added.
--- NOTE | 2018-10-27 17:35 | NUR ---
Admit to [facility] admitted to [facility] via gurney on monitoring specialist, and portable 02. Patient transferred to bed, connected to unit monitoring and oxygen, and weighed by bedscale. Patient oriented to Namita Gan, primary RN, unit, room, bed, and unit policies regarding patient care and visiting hours. Patient alert and oriented x4 appearing fatigued, no distress noted, respirations even and unlabored. All questions and concerns addressed, patient verbalized understanding. Comfort measures provided. Patient tolerated well. Fall and safety precautions in place. Call light within reach.
[2018-10-27] MEDS: SODIUM BICARBONATE IV SCH (17:56)
[2018-10-27] MEDS: POTASSIUM CHLORIDE IV SCH (17:56)
[2018-10-27] MEDS: D5W 5% IV SCH (17:56)
[2018-10-27] MEDS: POTASSIUM CHL 20MEQ/100ML 100 ML IV SCH ×2 (17:57→18:30)
--- NOTE | 2018-10-27 18:20 | NUR ---
HOME HEALTH AT BEDSIDE ALINE MACKEY FROM [facility] AT BEDSIDE. NARENDRA REPORTED TO THIS NURSE THAT SHE GOES AND VISITS PATIENT 3 TIMES A WEEK TO CHECK BLOOD SUGARS. NARENDRA CONFIRMED THAT PATIENT LIVES BY HERSELF AND KENNEDI IS HER DAUGHTER THAT LIVES IN [place]. NARENDRA ALSO REPORTED THAT PORT-A-CATH IS USED FOR MEDICATION FOR HER WEAK VALVE WHICH IS BEING TREATED BY DR MORRIS.
--- NOTE | 2018-10-27 19:10 | NUR ---
STATUS CHANGE/END OF SHIFT NOTE PATIENT SBP 43 - PATIENT UNRESPONSIVE WITH WEAK PULSE AND LABORED BREATHING, R.T. AT BEDSIDE, PAGED ER PHYSICIAN FOR INTUBATION. VITAL SIGNS STABILIZED AFTER ADDING SECOND VASOPRESSOR AND PATIENT ABLE TO ANSWER SIMPLE QUESTIONS BUT CONTINUES TO EXPERIENCE LABORED BREATHING. DR BILLINGS AT BEDSIDE. WILL NOTIFY FAMILY. ENDORSED CONTINUED CARE TO FINANCIAL INVESTIGATOR RN.
[2018-10-27] MEDS: PHENYLEPHRINE INJ 20 MG in SODIUM CHL 0.9% 250 ML IV SCH ×2 (19:30→22:30)
--- NOTE | 2018-10-27 19:30 | NUR ---
PATIENT INTUBATED WITH A NUMBER 8 ETT, 22CM AT THE LIP. SECURED. FOLLOWUP CXR COMPLETED. NEW NUMBER [address] BILLINGS AFTER LOSING THE LEFT WRIST IV. PORTACATH ACCESSED RIGHT CHEST WALL. LEVOPHED MAX AND NEOSYNEPHRINE THROUGH THE PORTACATH. BICARB DRIP THROUGH NEW LEJ CATHETER. POOR IV ACCESS. FOUND AN ABDOMINAL VEIN FOR THE VERSED DRIP. PUPILS PINPOINT AND SLUGGISH. WITHDRAWS RIGHT ARM AND BOTH FEET TO PAINFUL STIMULI. HAS NOT WITHDRAWN THE LEFT ARM YET TO PAINFUL STIMULI. LUNGS COARSE. NO SECRETIONS SUCTIONED FROM THE ETT YET. ABDOMEN SOFT. NUMBER 16FR SALEM SUMP PLACED ORALLY . OGT TO LOW CONTINUOUS SUCTION. OBTAINED 180CC OF DUSKY BROWN LIQUID. BUSTOS IN PLACE, LOW URINE OUTPUT. URINE IS YELLOW WITH SEDIMENT. ALL PULSES WEAK. SKIN: DIAPHORETIC. TEMP 99.5. SINUS TACHYCARDIA. NO ECTOPY.
[2018-10-27] MEDS ORDERED: ETOMIDATE (2MG/ML) 20ML VIAL IV ONE (19:32)
--- NOTE | 2018-10-27 19:32 | NUR ---
CONTACT FAMILY/DR MORRSI PHONED PATIENT'S FAMILY STEPHANIE GRANDDAUGHTER IN [place] AND DAUGHTER MADIHA WHO LIVES IN [place] TO NOTIFY OF PATIENT'S CONDITION AND NEED FOR INTUBATION. ALL FAMILY MEMBERS VERBALIZED UNDERSTANDING, MADIHA STATED SHE WOULD BE COMING FROM [place] NOW AND PROVIDED HER CELL NUMBER: . DR MORRIS NOTIFIED OF PATIENT CONDITION WELL AND NEED FOR INTUBATION - DR MORRIS VERBALIZED UNDERSTANDING. DR BILLINGS ER PHYSICIAN AT BEDSIDE FOR INTUBATION.
[2018-10-27] MEDS ORDERED: SUCCINYLCHOLINE CHLORIDE 20 MG/ML 10ML VIAL IV ONE (19:33)
[2018-10-27] MEDS ORDERED: MIDAZOLAM HCL 5 MG/ML-1ML VIAL ONE (19:34)
[2018-10-27] MEDS ORDERED: MIDAZOLAM DRIP 50 mg/50mL 50 ML IV ONE (19:50)
--- NOTE | 2018-10-27 20:50 | NUR ---
ABG DONE. COMPENSATED. IMPROVED. KWASI CARVALHO NOTIFIED
--- NOTE | 2018-10-27 21:00 | NUR ---
BEGINNING TO DECREASE THE NEOSYNEPHRINE. HEART RATE REMAINS ELEVATED 115-120. NO ECTOPY. KCL REPLACEMENT GOING. ABLE TO MOVE HER EXTREMITIES. JEY. WITH DRAWS TO PAINFUL STIMULI. LUNGS COARSE. UNABLE TO SUCTION ANY SECRETIONS FROM THE ETT.
[2018-10-27] MEDS: PIPERACILLIN-TAZOB 2.25GM 50 ML IV SCH (21:41)
--- NOTE | 2018-10-27 22:00 | NUR ---
MADIHA, HER DAUGHTER , IS HERE. SIGNED CONSENT FOR A CENTRAL LINE CATHETER. INFORMED KWASI CARVALHO THAT WE HAVE A REQUEST FOR A CENTRAL LINE CATHETER. INFORMED MADIHA ABOUT THE SEQUENTIAL EVENTS THAT LED TO NOW. MADIHA STATED THAT SHE WILL BRING IN THE LEGAL FORMS FOR POA AND CODE STATUS. MADIHA WANTS TO GIVE HER A CHANCE AT THIS POINT.
[2018-10-27] MEDS: MIDAZOLAM DRIP 50 mg/50mL 50 ML IV SCH (22:30)
[2018-10-28] VITALS (108 sets, daily range): BP systolic 69–126; BP diastolic 47–84
--- NOTE | 2018-10-28 | NUR ---
DECREASING THE NEOSYNEPHRINE. REPOSITIONED TO HER RIGHT SIDE. NO ORAL SECRETIONS. NO ETT SECRETIONS. ABDOMEN SOFT. OGT TO SUCTION...BROWN LIQUID. ALL PULSES VERY WEAK. 1-2+ PITTING EDEMA. BUSTOS: LOW URINE OUTPUT. JEY. WITHDRAWS TO PAINFUL STIMULI.
--- NOTE | 2018-10-28 01:30 | NUR ---
HAD A 12 BEAT RUN OF SELF LIMITING V TACHY
--- NOTE | 2018-10-28 03:04 | NUR ---
CHG BATH. PARTIAL LINEN CHANGE. ORAL CARE. NOTHING SUCTIONED FROM THE ETT. INCONTINENT OF SOFT LIQUID BROWN BM.
--- NOTE | 2018-10-28 03:35 | NUR ---
TEMP 100. ICE BAG TO BACK OF NECK. HOB FLAT. WE HAD JUST TURNED THE PATIENT RIGHT, BACK AND LEFT, THE BLOOD PRESSURE DROPPED IN TO THE 70S. NEOSYNEPHRINE PUT BACK ON.
--- NOTE | 2018-10-28 03:38 | NUR ---
AM LABS DRAWN.
[2018-10-28] MEDS: InsuLIN REG 1unit/0.01ml Soln (100units/ml) SC SCH ×6 (04:00→20:00)
--- NOTE | 2018-10-28 04:00 | NUR ---
TEMP 100. ICE BAG TO BACK OF NECK. SHEET OFF PATIENT.
[2018-10-28] MEDS: D5W 5% IV SCH ×3 (04:03→22:02)
[2018-10-28] MEDS: POTASSIUM CHLORIDE IV SCH ×3 (04:03→22:02)
[2018-10-28] MEDS: SODIUM BICARBONATE IV SCH ×3 (04:03→22:02)
[2018-10-28 04:38] LABS: Hematocrit 35.7 % (36.0-46.0); Hemoglobin 11.1 g/dL (12.2-16.2); Mean Corpuscular Hemoglobin 28.9 pg (28.0-32.0); Mean Corpuscular Hgb Conc. 31.1 g/dL (32.0-36.0); Mean Corpuscular Volume 92.9 fL (80.0-100.0); Platelet Count (auto) 137 10^3/uL (140-450); Red Blood Cells 3.84 10^6/uL (4.0-5.20); Red Cell Distribution Width 18.4 % (11.8-14.3); White Blood Cell 9.7 10^3/uL (4.4-10.8)
[2018-10-28 04:40] LABS: Albumin 2.1 g/dL (3.4-5.0); Anion Gap 15 (5-15); Carbon Dioxide 14 mmol/L (21-32); Chloride 109 mmol/L (98-107); Glucose 274 mg/dL (74-106); Magnesium 2.1 mg/dL (1.6-2.6); Potassium 4.2 mmol/L (3.5-5.1); Sodium 138 mmol/L (136-145)
[2018-10-28 04:43] LABS: Alanine Aminotransferase 45 U/L (13-56); Alkaline Phosphatase 110 U/L (45-117); Aspartate Aminotransferase 47 U/L (15-37); BUN/Creatinine Ratio 27.2; Bilirubin, Total 0.2 mg/dL (0.2-1.0); GFR African American 14 mL/min; GFR Non-African American 12 mL/min; Total Protein 5.6 g/dL (6.4-8.2)
[2018-10-28 04:51] LABS: Band Neutrophils % (manual) 0; Basophils % (manual) 0 (0.0-2.0); Blast Cells 0; Eosinophils % (manual) 0 (0-7); Metamyelocytes % 0; Myelocytes % 0; Promyelocytes % 0; Reactive Lymphocytes 0
[2018-10-28 05:01] LABS: Lactic Acid w/Reflex 4.1 mmol/L (0.4-2.0)
[2018-10-28] MEDS: NOREPINEPHRINE 8 MG/250ML KIT 250 ML IV SCH ×4 (05:15→20:10)
[2018-10-28 05:22] LABS: Lymphocytes % (manual) 13 (10.0-50.0); Monocytes % (manual) 9 (0-12)
[2018-10-28 05:24] LABS: Blood Urea Nitrogen 106 mg/dL (7-18)
[2018-10-28 05:32] LABS: Cholesterol 56 mg/dL (< 200); HDL Cholesterol 17 mg/dL (40-59); Triglycerides 165 mg/dL (< 150)
[2018-10-28 05:33] LABS: LDL Cholesterol 31 mg/dL (< 100)
[2018-10-28] MEDS: PIPERACILLIN-TAZOB 2.25GM 50 ML IV SCH ×3 (05:33→22:05)
--- NOTE | 2018-10-28 06:00 | NUR ---
TEMP DOWN TO NORMAL. LUNGS SLIGHTLY COARSE. DISTAL EXTREMITIES COOL. TROPONIN +
--- NOTE | 2018-10-28 09:18 | NUR ---
PAGED DR MORRIS MESSAGE LEFT REGARDING MORNING LABS AND TROPONIN LEVEL, AWAITING RESPONSE.
--- NOTE | 2018-10-28 09:25 | NUR ---
NEPHROLOGY AT BEDSIDE DR FISHER UPDATED ON PATIENT'S STATUS, LABS AND ABG RESULTS. NO ORDERS AT THIS TIME. WILL CONTINUE TO MONITOR.
[2018-10-28] MEDS: FAMOTIDINE (10MG/ML) 2ML VL IV SCH ×2 (10:03→22:05)
[2018-10-28] MEDS: ASPirin-EC 81 mg tab PO SCH (10:04)
[2018-10-28] MEDS ORDERED: D5W 5% IV SCH (11:00)
[2018-10-28] MEDS ORDERED: SODIUM BICARBONATE IV SCH (11:00)
[2018-10-28] MEDS ORDERED: POTASSIUM CHLORIDE IV SCH (11:00)
--- NOTE | 2018-10-28 11:06 | NUR ---
VTACH/AFIB RVR NURSE NOTIFIED OF PATIENT HAVING RUNS OF V-TACH - HR 152, ECG PERFORMED AND READING ATRIAL-FIB WITH RVR. PAGED DR MORRIS, AWAITING RESPONSE. R.T., CHARGE AND ORAL COMMUNICATION INSTRUCTOR AT BEDSIDE, CRASH CART IN PLACE, PAGED ER PHYSICIAN.
--- NOTE | 2018-10-28 11:10 | NUR ---
SPOKE WITH DR MORRIS/PACEMAKER INTERROGATION NOTIFIED OF ECG RESULTS AND VITAL SIGNS. ORDERS TO BEGIN AMIODARONE PER PROTOCOL RECEIVED AND CARRIED OUT. CIRILO AT BEDSIDE INTERROGATING PACEMAKER AND FILED RESULTS IN CHART. PATIENT'S DAUGHTER MADIHA AT BEDSIDE. Addendum: 10/28/18 at 1200 by Namita Gan RN CONTACT PHARMACY REGARDING STAT AMIODARONE ORDER BY DR MORRIS. AMIODARONE ADMINISTERED FROM CRASH CART STAT FOR BOLUS DOSE. WILL AWAITING MAINTENANCE DOSE FROM PHARMACY.
[2018-10-28] MEDS ORDERED: AMIODARONE HCL 150 MG in D5W 5% 100 ML IV ONE (11:15)
[2018-10-28] MEDS ORDERED: AMIODARONE HCL (50 MG/ ML) 3 ML VIAL IV ONE (11:17)
[2018-10-28] MEDS ORDERED: AMIODARONE HCL 900 MG in DEXTROSE 500 ML IV SCH (11:25)
--- NOTE | 2018-10-28 11:47 | NUR ---
Nutrition consult/assessment Notes please see attached link for complete assessment Est. Needs BW [id number] kcal (25-30 kcal/kgBW), 60-75 gms pro (0.8-1.0 gms/kgBW r/t elev RFT severe hypoalb wounds). Will continue to monitor pertinent labs and reassess nutrient need prn Rec: EN support with Glucerna @ 70 ml.hr per MD approval Addendum: 10/28/18 at [address] Amended: Links added.
[2018-10-28] MEDS: PHENYLEPHRINE INJ 20 MG in SODIUM CHL 0.9% 250 ML IV SCH ×4 (13:27→22:34)
[2018-10-28] MEDS: MIDAZOLAM DRIP 50 mg/50mL 50 ML IV SCH (13:28)
[2018-10-28 13:40] LABS: INR 1.11 (0.9-1.15); Partial Thromboplastin Time 29.1 sec (23.64-32.05)
--- NOTE | 2018-10-28 16:09 | NUR ---
DR MORRIS AT BEDSIDE UPDATED ON PATIENT'S STATUS, REVIEWED ECG AND EKG STRIPS, ORDERS RECEIVED AND WILL BE CARRIED OUT. DR MORRIS ORDERED FLUIDS TO BE INCREASED TO 200 MLS/HR AND ADD DIGOXIN 250 MCG IV X2 30 TO 1 HOUR APART X1. ORDERS WILL BE CARRIED OUT.
[2018-10-28] MEDS ORDERED: DIGOXIN (250MCG/ML) 2 ML AMPULE IV ONE ×2 (16:15→17:15)
[2018-10-28] MEDS: AMIODARONE HCL 900 MG in DEXTROSE 500 ML IV SCH (17:40)
--- NOTE | 2018-10-28 19:43 | NUR ---
PATIENT ADMITTED FROM HOME, FOUND DOWN. BLOOD SUGAR 807. DIAGNOSIS SEPTIC SHOCK. + URINE CULTURE. TROPONIN +. BNP 3260. BM TODAY. AMIODARONE DRIP, ON PROTOCOL FOR FAST ATRIAL FIB. NEOSYNEPHRINE AND LEVOPHED FOR BLOOD PRESSURE CONTROL. NA BICARB DRIP AT 200CC/HR. NEW LEFT IJ TLC. PORTACATH ACCESSED RIGHT CHEST WALL. RIGHT ABDOMINAL 22 G SALINE LOCK. OGT TO SUCTION: DARK GREEN LIQUID. BUSTOS: CLEAR LIGHT YELLOW LIQUID WITH SEDIMENT. SOCIAL SERVICE TO WORK ON CASE. BILATERAL FOREARM ECCHYMOTIC AREAS. DIGOXIN GIVEN TODAY. SKIN TEAR ON BUTTOCK AND MID GLUTEAL AREA. PICTURE IN CHART.
--- NOTE | 2018-10-28 20:15 | NUR ---
ARMS ARE EDEMETOUS, LEFT GREATER THAN RIGHT. BOTH HANDS ARE ICE COLD. NEW SKIN TEAR JUST ABOVE RIGHT WRIST. FOAM DRESSING APPLIED. BATH BLANKET AROUND EACH FOREARM. BILATERAL LEG: PITTING EDEMA IS PROGRESSIVE YOU GO DOWN THE LEGS. BEGIN TO GET A LOW LEVEL OF HYPERPIGMENTATION MID CALF DOWN TO THE ANKLE. ALSO PROGRESSIVE COOLNESS YOU GO DOWN THE LEGS. SOCKS ON. SCDS ON. ALL THE PULSES ARE WEAK. SKIN WRINKLING ON ARMS AND LEGS. LOW GRADE FEVER 99.3
--- NOTE | 2018-10-28 22:00 | NUR ---
ABLE TO START WEANING DOWN THE NEOSYNEPHRINE. HEART RATE IS DECREASING. LOU TERRYP REPOSITIONED TO GET IT TO DRAIN BETTER. RETAPED TO ETT. OGT CONTENTS DARK GREEN WITH FLECKS. 50-100% V PACED. NOTHING SUCTIONED FROM THE ETT. ORAL CARE DONE. REPOSITIONED TO SUPINE POSITION. ABDOMEN SOFT. ALL PULSES PALPABLE. SCD SLEEVES REPOSITIONED TO KEEP TUBING OFF PATIENT. HEELS OFF BED. BASELINE RHYTHM IS STILL ATRIAL FIB.
[2018-10-29] VITALS (81 sets, daily range): BP systolic 46–125; BP diastolic 24–68
--- NOTE | 2018-10-29 | NUR ---
WEANING NEOSYNEPHRINE SUCCESSFULLY. BASELINE RHYTHM CONTINUES IN ATRIAL FIB. 50-100% VENT. PACED BEATS. LUNGS COARSE. NOTHING SUCTIONED FROM THE ETT. LOU COHEN HAS A SMALL AMOUNT OF GREEN LIQUID IN TUBING. BUSTOS DRAINING CLEAR YELLOW FLUID. NO SEDIMENT. IV SITE SHOWS NO REDNESS OR SWELLING. ABDOMEN ROUND AND SOFT. NO BM. ALL PULSES REMAIN WEAK AND IRREGULAR. BOTH HANDS ARE COLD. GRIMACES WHEN I DO ORAL CARE. WEANED DOWN VERSED A LITTLE, PATIENT IS NOT MOVING TO PAINFUL STIMULI. BREATHING ABOVE THE VENTILATOR.
[2018-10-29] MEDS: InsuLIN REG 1unit/0.01ml Soln (100units/ml) SC SCH ×5 (00:03→17:44)
[2018-10-29] MEDS: NOREPINEPHRINE 8 MG/250ML KIT 250 ML IV SCH ×3 (00:20→23:04)
[2018-10-29] MEDS ORDERED: METO25TA62 PO (01:01)
[2018-10-29] MEDS ORDERED: CHOL20007 PO (01:03)
--- NOTE | 2018-10-29 02:00 | NUR ---
NEOSYNEPHRINE OFF. SBP STABLE. ATRIAL FIB CONTROLLED RATE. VENTRICULAR PACE0-50% OF THE TIME. GOOD URINE OUTPUT
--- NOTE | 2018-10-29 03:28 | NUR ---
AM LABS DRAWN.
[2018-10-29] MEDS: POTASSIUM CHLORIDE IV SCH ×2 (03:29→07:23)
[2018-10-29] MEDS: SODIUM BICARBONATE IV SCH ×2 (03:29→07:23)
[2018-10-29] MEDS: D5W 5% IV SCH ×2 (03:29→07:23)
--- NOTE | 2018-10-29 04:00 | NUR ---
CHG BATH. SMALL INCONTINENT DARK GREEN THICK PASTY STOOL. DRAW SHEET /PAD AND GOWN CHANGE. BOTH ARMS ELEVATED ON PILLOWS. TOWELS AROUND BOTH FOREARMS TO KEEP THEM WARM. BOTH HANDS ARE STILL COLD. SCDS ON. EDEMA PERSISTS IN ARMS AND LEGS. ALL PULSES REMAIN WEAK. ORAL CARE. ETT SUCTIONED FOR A SMALL AMOUNT OF CLEAR/WHITE SECRETIONS.
[2018-10-29 04:03] LABS: Hematocrit 33.4 % (36.0-46.0); Hemoglobin 10.9 g/dL (12.2-16.2); Mean Corpuscular Hemoglobin 28.7 pg (28.0-32.0); Mean Corpuscular Hgb Conc. 32.6 g/dL (32.0-36.0); Platelet Count (auto) 114 10^3/uL (140-450); Red Blood Cells 3.79 10^6/uL (4.0-5.20); Red Cell Distribution Width 18.4 % (11.8-14.3); White Blood Cell 12.5 10^3/uL (4.4-10.8)
[2018-10-29 04:14] LABS: Basophils % (manual) 0 (0.0-2.0); Blast Cells 0; Eosinophils % (manual) 0 (0-7); Metamyelocytes % 0; Myelocytes % 0; Promyelocytes % 0; Reactive Lymphocytes 0
[2018-10-29 04:17] LABS: Calcium 7.2 mg/dL (8.5-10.1); Potassium 3.5 mmol/L (3.5-5.1)
[2018-10-29 04:20] LABS: BUN/Creatinine Ratio 28.3
[2018-10-29 04:59] LABS: Band Neutrophils % (manual) 13; Lymphocytes % (manual) 15 (10.0-50.0); Monocytes % (manual) 8 (0-12)
--- NOTE | 2018-10-29 05:15 | NUR ---
AM CXR DONE
[2018-10-29] MEDS: PIPERACILLIN-TAZOB 2.25GM 50 ML IV SCH ×3 (05:45→21:53)
--- NOTE | 2018-10-29 06:00 | NUR ---
NOTHING SUCTIONED FROM THE ETT. ORAL CARE DONE. NSR WITHOUT ECTOPY. ABDOMEN SOFT. SINUS TACHYCARDIA WITH BBB.
[2018-10-29] MEDS: PHENYLEPHRINE INJ 20 MG in SODIUM CHL 0.9% 250 ML IV SCH ×3 (07:30→23:34)
--- NOTE | 2018-10-29 07:30 | NUR ---
ASSESS- PT. LYING IN BED ON VENT SIZE # 8.0 ET, 24 AT THE LIP, AC-14, TV-500, PEEP-5, FIO2-30%. LUNGS CLEAR LESLY. INSPIRATORY AND EXPIRATORY. PT. HAS VERY HYPOACTIVE GAG/COUGH REFLEX. PUPILS 3 AND BRISK LESLY. VERSED GTT. AT 3MG./HR. TLC LT. IJ INTACT. RT. CHEST WITH PORTACATH INTACT. OGT TO LCS, NO DRAINAGE IN CANISTER. ABD. SOFT, FLAT. BOWEL SOUNDS HYPOACTIVE ALL FOUR QUADRANTS. NPO. F/C TO GRAVITY WITH CLEAR YELLOW URINE. RADIAL PULSES WEAK, PALPABLE LESLY. 2 PLUS EDEMA ARMS AND HANDS LESLY. BRUISES TO ARMS LESLY. DORSALIS PEDAL PULSES WEAK, PALPABLE LESLY. 2 PLUS EDEMA LE LESLY. SCD'S LESLY. LE. SKIN TEAR RT. FOREARM WITH OPTIFOAM DSG. D/I. GLUTEAL FOLD AND LT. BUTTOCK WITH SKIN TEAR WITH OPTIFOAM DSG. D/I. LEVOPHED GTT. AT 21 MCG. SBP UPPER 100'S. AMIODARONE GTT. AT 0.5 MG./MIN.
[2018-10-29] MEDS ORDERED: DEXTROSE (50%) 50ML SYRG IV PRN (09:30)
--- NOTE | 2018-10-29 09:30 | NUR ---
Called/paged Dr. FERNANDEZ called re:. CALLED DR. MORRIS'S CELL PHONE AND CONNECTED. Continue care. NEW ORDERS RECEIVED.
[2018-10-29] MEDS: ASPirin-EC 81 mg tab PO SCH (09:42)
[2018-10-29] MEDS: FAMOTIDINE (10MG/ML) 2ML VL IV SCH ×2 (09:42→21:53)
[2018-10-29] MEDS: AMIODARONE HCL 900 MG in DEXTROSE 500 ML IV SCH (09:43)
--- NOTE | 2018-10-29 10:00 | NUR ---
PT. HAD MODERATE SIZE LOOSE GREEN STOOL. MICHELLE CARE DONE AND LINENS CHANGED. PT. TOLERATED WELL.
--- NOTE | 2018-10-29 10:30 | NUR ---
Family updated on pt status Family of YARIEL MOCK updated on patient's status and condition. All questions and concerns addressed. DAUGHTER verbalized understanding. VISITING AT THE BS.
[2018-10-29] MEDS: ACCU-CHEK COMFORT CURVE STRIP VI SCH ×2 (12:00→17:44)
[2018-10-29] MEDS: SODIUM CHLORIDE 0.9% 1,000 ML IV SCH ×3 (13:15→21:52)
--- NOTE | 2018-10-29 13:25 | NUR ---
DR. RIBEIRO Provider/Hospitalist at bedside. GAVE UPDATE ON PT.
--- NOTE | 2018-10-29 17:00 | NUR ---
PT. HAS BEEN RESTING ON VENT WITH EYES CLOSED, SEDATED. NO SIGNS OF RESP. DISTRESS OR DISCOMFORT.
--- NOTE | 2018-10-29 19:30 | NUR ---
OPEN NOTES ASSUMED CARE OF PATIENT. RECEIVED PATIENT SEDATED WITH IV VERSED AT 3MG/HR. GRIMACES TO STIMULI.NO SPONTANEOUS LIMB MOVEMENT NOTED. INTUBATED ON AC MODE, FIO2 30%. BREATHING COMFORTABLY. VS STABLE. WITH IV LEVOPHED AT 24MCG/MIN- WILL TITRATED TO KEEP SBP >90 AND MAP >65 MMHG. WITH PERMANENT PACEMAKER AT LEFT UPPER CHEST. OGT IN PLACED - CLAMPED.PATIENT NPO. BUSTOS CATHETER IN PLACED -YELLOWISH CLEAR URINE OUTPUT. BOTH UPPER AND LOWER LIMBS SWOLLEN - ELEVATED WITH PILLOWS. REPOSITIONED, ORAL CARE DONE. FULL ASSESSMENT -REFER INTERVENTIONS
[2018-10-29] MEDS: MIDAZOLAM DRIP 50 mg/50mL 50 ML IV SCH (21:12)
[2018-10-30] VITALS (107 sets, daily range): BP systolic 50–128; BP diastolic 25–72
[2018-10-30] MEDS: ACCU-CHEK COMFORT CURVE STRIP VI SCH ×5 (00:19→23:35)
--- NOTE | 2018-10-30 00:20 | NUR ---
RN NOTES PATIENT'S VS STABLE. WEANING DOWN IV LEVOPHED. BREATHING COMFORTABLY. IV VERSED AT 2MG/HR
[2018-10-30] MEDS: InsuLIN REG 1unit/0.01ml Soln (100units/ml) SC SCH ×5 (00:23→23:50)
[2018-10-30] MEDS: SODIUM CHLORIDE 0.9% 1,000 ML IV SCH ×3 (01:00→13:40)
--- NOTE | 2018-10-30 02:00 | NUR ---
SEDATION PATIENT GRIMACES TO STIMULI BUT NOT RESTLESS. BREATHS WITH THE VENT. HYPOACTIVE COUGH AND GAG. LOOKS COMFORTABLE SEDATION TURNED OFF - WILL CONTINUE TO MONITOR
--- NOTE | 2018-10-30 03:45 | NUR ---
Patient bathe/linen change/elimination Patient given complete bath. Skin integrity assessed for any changes. Linens changed. Patient repositioned for comfort. Patient had small amount loose mucoid greenish stool.
[2018-10-30 03:55] LABS: Basophils # (auto) 0.1 uL; Basophils % (auto) 0.8 % (0.0-2.0); Eosinophils # (auto) 0.1 uL; Eosinophils % (auto) 0.9 % (0.0-7.0); Hematocrit 32.8 % (36.0-46.0); Hemoglobin 10.9 g/dL (12.2-16.2); Lymphocytes % (auto) 7.4 % (10.0-50.0); Mean Corpuscular Hemoglobin 28.5 pg (28.0-32.0); Mean Corpuscular Hgb Conc. 33.1 g/dL (32.0-36.0); Neutrophils # (auto) 11.5 uL; Neutrophils % (auto) 83.9 % (37.0-80.0); Platelet Count (auto) 93 10^3/uL (140-450); Red Blood Cells 3.81 10^6/uL (4.0-5.20); Red Cell Distribution Width 17.5 % (11.8-14.3); White Blood Cell 13.7 10^3/uL (4.4-10.8)
[2018-10-30 04:11] LABS: Calcium 6.9 mg/dL (8.5-10.1); Potassium 3.2 mmol/L (3.5-5.1)
[2018-10-30 04:14] LABS: BUN/Creatinine Ratio 28.3
[2018-10-30] MEDS: PIPERACILLIN-TAZOB 2.25GM 50 ML IV SCH ×3 (05:54→21:41)
[2018-10-30] MEDS: NOREPINEPHRINE 8 MG/250ML KIT 250 ML IV SCH ×2 (06:00→22:39)
--- NOTE | 2018-10-30 07:45 | NUR ---
ASSESS- PT. LYING IN BED ON VENT SIZE# 8.0 ET, 24 AT THE LIP, AC-14, TV-500, PEEP-5, FIO2-30%. LUNGS COARSE LESLY. INSPIRATORY AND EXPIRATORY. PT. HAS HYPOACTIVE GAG/COUGH REFLEX. PUPILS 2 AND SLUGGISH LESLY. FACIAL GRIMACES WITH STIMULI. EYES REMAIN CLOSED, DO NOT OPEN TO VERBAL COMMAND. NO MOVEMENT OF EXTREMITIES SEEN. DOES NOT FOLLOW ANY COMMANDS. NO SEDATION. TLC LT. IJ INTACT. PORTACATH RT. CHEST INTACT. AMIODARONE GTT. AT 0.5 MG./MIN. LEVOPHED GTT. AT 16 MCG. SBP 100'S. HR, 80'S. OGT IN PLACE, CLAMPED. ABD. SOFT, FLAT. BOWEL SOUNDS HYPOACTIVE ALL FOUR QUADRANTS. F/C TO GRAVITY WITH CLEAR YELLOW URINE. RADIAL PULSES WEAK, PALPABLE LESLY. DORSALIS PEDAL PULSES WEAK, PALPABLE LESLY. SCD'S LESLY. LE. 2 PLUS EDEMA LESLY. ARMS AND HANDS. 2 PLUS EDEMA LE LESLY. SKIN TEAR RT. FOREARM WITH OPTIFOAM DSG. D/I. SKIN TEAR TO LT. BUTTOCK AND GLUTEAL FOLD WITH OPTIFOAM DSG. D/I.
[2018-10-30] MEDS: PHENYLEPHRINE INJ 20 MG in SODIUM CHL 0.9% 250 ML IV SCH ×2 (07:54→13:52)
--- NOTE | 2018-10-30 08:35 | NUR ---
Called/paged Dr. RIBEIRO called re: . Waiting for call back. Continue care.
--- NOTE | 2018-10-30 09:00 | NUR ---
returned call Dr. RIBEIRO returned call, updated on patient status and reason for call, orders received. Continue care.
[2018-10-30] MEDS: POTASSIUM CHL 20MEQ/100ML 100 ML IV SCH ×2 (09:15→11:10)
[2018-10-30] MEDS ORDERED: POTASSIUM CHL 20MEQ/100ML 200 ML IV ONE (09:23)
[2018-10-30] MEDS: ASPirin-EC 81 mg tab PO SCH (09:25)
[2018-10-30] MEDS: FAMOTIDINE (10MG/ML) 2ML VL IV SCH ×2 (09:25→21:35)
--- NOTE | 2018-10-30 12:00 | NUR ---
DR. FERNANDEZ Provider/Hospitalist at bedside. GAVE UPDATE ON PT.
[2018-10-30] MEDS: IPRATROPIUM BROM 0.5 MG/2.5ML INH SOL NEB PRN (12:10)
[2018-10-30] MEDS: ALBUTEROL SULF 2.5 MG/0.5ML(0.5%) NEB SOLN NEB PRN (12:10)
--- NOTE | 2018-10-30 12:35 | NUR ---
DR. RIBEIRO Provider/Hospitalist at bedside.
[2018-10-30] MEDS: AMIODARONE HCL 900 MG in DEXTROSE 500 ML IV SCH (13:51)
--- NOTE | 2018-10-30 15:00 | NUR ---
PT. DOES NOT OPEN EYES TO VERBAL/PAINFUL STIMULI. PUPILS 2 AND SLUGGISH LESLY. EYES REMAIN CLOSED. NO MOVEMENT OF EXTREMITIES SEEN. DOES NOT FOLLOW ANY COMMANDS. NO SEDATION. PT. HAS HYPOACTIVE GAG/COUGH REFLEX.
--- NOTE | 2018-10-30 18:00 | NUR ---
SBP HAS BEEN IN THE UPPER 100'S TO 110'S. TITRATING LEVOPHED GTT. DOWN SLOWLY TO KEEP SBP >90. LEVOPHED GTT. CURRENTLY AT 12.5 MCG. CONTINUING TO MONITOR BP.
--- NOTE | 2018-10-30 19:30 | NUR ---
OPEN NOTES ASSUMED CARE OF PATIENT. PATIENT IS NOT SEDATED, ONLY GRIMACES TO STIMULI.NO SPONTANEOUS LIMB MOVEMENT NOTED.PUPILS BOTH REACTIVE TO LIGHT. INTUBATED ON AC MODE, FIO2 30%. BREATHING COMFORTABLY. SUCTIONED, ORAL CARE DONE. VS STABLE. WITH IV LEVOPHED AT 12.5 MCG/MIN- WILL TITRATED TO KEEP SBP >90 AND MAP >65 MMHG. WITH ONGOING IV AMIODARONE AT 16.66ML/HR. ECG SR HR 80/MIN. WITH PERMANENT PACEMAKER AT LEFT UPPER CHEST. OGT CLAMPED - NPO. HYPOACTIVE BS. BUSTOS CATHETER IN PLACED -CLEAR YELLOWISH OUTPUT NOTED. PATIENT HAS A LEFT IJ TLC -DRESSING DRY AND INTACT. ALSO HAS LIV CATH ACCESSED AT RIGHT SUBCLAVIAN. SKIN ISSUES NOTED - REFER WOUND ASSESSMENT WILL CONTINUE TO MONITOR
--- NOTE | 2018-10-30 21:07 | NUR ---
not on any sedation right now patient only grimaces to stimuli no limb movement noted pupils both reactive to light Addendum: 10/30/18 at 2108 by Kriss Becerra RN Amended: Links added.
[2018-10-30] MEDS: MIDAZOLAM DRIP 50 mg/50mL 50 ML IV SCH (21:12)
[2018-10-31] VITALS (104 sets, daily range): BP systolic 67–120; BP diastolic 22–68
--- NOTE | 2018-10-31 00:10 | NUR ---
RN NOTES Patient remained neurologically same. VS stable. Will titrate IV Levophed. All limbs elevated with pillows due to edema. Repositioned and oral care done.
[2018-10-31] MEDS: SODIUM CHLORIDE 0.9% 1,000 ML IV SCH ×2 (01:00→10:45)
[2018-10-31] MEDS: PHENYLEPHRINE INJ 20 MG in SODIUM CHL 0.9% 250 ML IV SCH ×3 (01:39→14:33)
--- NOTE | 2018-10-31 05:00 | NUR ---
Patient bathe/linen change Patient given complete bath. Cleaned with CHG wipes. Hair washed. Skin integrity assessed for any changes. Linens changed. Patient repositioned for comfort.
[2018-10-31 05:26] LABS: Basophils # (auto) 0.1 uL; Basophils % (auto) 0.9 % (0.0-2.0); Eosinophils # (auto) 0.2 uL; Eosinophils % (auto) 1.6 % (0.0-7.0); Hematocrit 30.3 % (36.0-46.0); Hemoglobin 10.1 g/dL (12.2-16.2); Lymphocytes # (auto) 1.2 uL; Lymphocytes % (auto) 8.5 % (10.0-50.0); Mean Corpuscular Hemoglobin 28.7 pg (28.0-32.0); Mean Corpuscular Hgb Conc. 33.2 g/dL (32.0-36.0); Mean Corpuscular Volume 86.4 fL (80.0-100.0); Monocytes # (auto) 1.1 uL; Monocytes % (auto) 8.1 % (0.0-12.0); Neutrophils # (auto) 11.4 uL; Neutrophils % (auto) 80.9 % (37.0-80.0); Platelet Count (auto) 102 10^3/uL (140-450); Red Blood Cells 3.51 10^6/uL (4.0-5.20); Red Cell Distribution Width 18.6 % (11.8-14.3); White Blood Cell 14.2 10^3/uL (4.4-10.8)
[2018-10-31 05:43] LABS: BUN/Creatinine Ratio 28.6; Calcium 7.2 mg/dL (8.5-10.1); Potassium 3.6 mmol/L (3.5-5.1)
[2018-10-31] MEDS: ACCU-CHEK COMFORT CURVE STRIP VI SCH ×4 (05:49→23:39)
[2018-10-31] MEDS: InsuLIN REG 1unit/0.01ml Soln (100units/ml) SC SCH ×4 (05:51→23:40)
[2018-10-31] MEDS: PIPERACILLIN-TAZOB 2.25GM 50 ML IV SCH ×3 (05:53→22:04)
--- NOTE | 2018-10-31 06:00 | NUR ---
RN NOTES Patient is still not waking up. Grimaces to stimuli. No limb movement noted. VS stable. Able to wean down IV Levophed currently at 8mcg/min. will continue to monitor
--- NOTE | 2018-10-31 07:30 | NUR ---
Assumed care of patient - assessment completed - see flow sheet.
--- NOTE | 2018-10-31 08:24 | NUR ---
assessment Patients post discharge needs to be determined once down graded from ICU. Addendum: 11/02/18 at 0826 by Ghazal DEL ROSARIO Amended: Links added.
--- NOTE | 2018-10-31 09:00 | NUR ---
Neuro Patient with hypo cough/gag, PERRLA 3mm et brisk, withdraws bilat upper extremities to painful stimuli and facial grimacing noted with oral care et repositioning. Bilat upper extremities with +3 edema - Left greater than right.
[2018-10-31] MEDS: ASPirin-EC 81 mg tab PO SCH (10:18)
[2018-10-31] MEDS: FAMOTIDINE (10MG/ML) 2ML VL IV SCH ×2 (10:20→22:02)
[2018-10-31] MEDS ORDERED: FUROSEMIDE 40 MG/4 ML VIAL IV ONE (10:30)
--- NOTE | 2018-10-31 10:30 | NUR ---
visits et examines patient - orders received.
[2018-10-31] MEDS: Glucerna 1.2 Cal 1Liter BOTTLE GT SCH (14:51)
[2018-10-31] MEDS: DOBUTamine 1000MCG/ML 250 ML IV SCH ×2 (14:51→23:08)
--- NOTE | 2018-10-31 15:15 | NUR ---
Glucerna TF started at 15ml/hour per orders.
--- NOTE | 2018-10-31 15:45 | NUR ---
Dr.Kumar diamond et examines patient - no orders received.
--- NOTE | 2018-10-31 18:50 | NUR ---
notified of patient's low BP et mean less than 60 with Dobutamine et Levophed infusing - orders received. Marketing Development Specialist also informed MD of chronic DVT of right IJ - no orders received.
--- NOTE | 2018-10-31 18:55 | NUR ---
Senior Corporate Accountant spoke to patient's daughter Maame - updated her on patient's condition - verbalized understanding.
[2018-10-31] MEDS ORDERED: BUMETANIDE 1mg/4ml VIAL (0.25mg/ml) IV ONE (19:00)
--- NOTE | 2018-10-31 19:30 | NUR ---
OPEN NOTES Assumed care of patient. Patient only grimaces to stimuli, noted some head movements. No spontaneous limb movement noted. Cough and gag remained hypoactive. Sedation was stopped 10/30 0200hrs. Patient's temp 97.2F - covered with blankets. HR 80/min, BP 90 systolic MAP 58-59mmHg With ongoing IV Levophed at 9mcg/min and IV Dobutamine at 5mcg/kg/min(non titratable) Still on IV Amiodarone drip at 16.66ml/hr - will start on oral Amiodarone tonight and stop drip All limbs edematous - elevated with pillows. SCD at both legs. OGT in placed with ongoing feeding Glucerna at 15ml/hr. Residual 10mls, will continue to monitor Full assessment done - refer Interventions
--- NOTE | 2018-10-31 19:30 | NUR ---
Report given to May MAGAÑA.
[2018-10-31] MEDS: AMIODARONE HCL 900 MG in DEXTROSE 500 ML IV SCH (20:58)
[2018-10-31] MEDS: MIDAZOLAM DRIP 50 mg/50mL 50 ML IV SCH (21:12)
[2018-10-31] MEDS: AMIODARONE HCL 200 MG TAB PO SCH (22:06)
--- NOTE | 2018-10-31 22:06 | NUR ---
AMIODARONE Oral Amiodarone given via OGT. will stop IV drip in 1 hour
--- NOTE | 2018-10-31 23:30 | NUR ---
AMIODARONE DRIP OFF
[2018-11-01] VITALS (106 sets, daily range): BP systolic 89–121; BP diastolic 30–47
[2018-11-01] MEDS: PHENYLEPHRINE INJ 20 MG in SODIUM CHL 0.9% 250 ML IV SCH ×3 (01:34→18:06)
[2018-11-01] MEDS: SODIUM CHLORIDE 0.9% 1,000 ML IV SCH ×2 (02:14→14:34)
[2018-11-01] MEDS: NOREPINEPHRINE 8 MG/250ML KIT 250 ML IV SCH ×2 (02:14→20:13)
[2018-11-01] MEDS: ACCU-CHEK COMFORT CURVE STRIP VI SCH ×3 (06:15→17:44)
[2018-11-01] MEDS: PIPERACILLIN-TAZOB 2.25GM 50 ML IV SCH ×3 (06:20→21:40)
[2018-11-01] MEDS: InsuLIN REG 1unit/0.01ml Soln (100units/ml) SC SCH ×3 (06:20→17:44)
[2018-11-01 07:04] LABS: BUN/Creatinine Ratio 27.9; Calcium 7.3 mg/dL (8.5-10.1); Potassium 3.5 mmol/L (3.5-5.1)
--- NOTE | 2018-11-01 08:30 | NUR ---
LEVOPHED INCREASED TO 8 MCG/MIN DUE TO MAP, SEE VS SPREADSHEET
[2018-11-01] MEDS: DOBUTamine 1000MCG/ML 250 ML IV SCH ×3 (09:52→20:20)
--- NOTE | 2018-11-01 10:00 | NUR ---
NEW SKIN TEAR NOTED TO RIGHT WRIST JUST BELOW OLD SKIN TEAR, CLEANSED AND PLACED FOAM DSG WITH KERLIX.
[2018-11-01] MEDS: ASPirin-EC 81 mg tab PO SCH (10:13)
[2018-11-01] MEDS: FAMOTIDINE (10MG/ML) 2ML VL IV SCH ×2 (10:14→21:40)
[2018-11-01] MEDS: AMIODARONE HCL 200 MG TAB PO SCH ×2 (10:14→21:40)
--- NOTE | 2018-11-01 11:49 | NUR ---
Nutrition Follow-up Notes Wt.: 86.0 kg Pt's intubated sedated with no family by bedside. pt is currently NPO on EN support with Glucerna @ 25 ml.hr providing 720 kcals and 36 gm proteins. pt with inadequate EN support as it meets 32-38% kcals and 48-60% proteins. RN informed of diet rec per MD approval Est. Needs BW [id number] kcal (25-30 kcal/kgBW), 60-75 gms pro (0.8-1.0 gms/kgBW r/t elev RFT severe hypoalb wounds). Will continue to monitor pertinent labs and reassess nutrient need prn Labs: BUN 73 H, CREAT 2.62 H, GLU 264 H, CA 7.3 L, Skin: Papa scale 12, high risk, pt's with pressure ulcer sacrum per RN doc. refer to notes for details GI: Pt had 1 BM today per data conversion analyst. PES: Altered nutrition related lab values r/t acute/chronic medical condition aeb elev RFT severe hypoalb, hypocalcemia, hyperglycemia, elev A1C Impaired swallowing r/t current medical condition aeb pt`s intubated sedated with order of NPO Will continue to monitor NPO status, EN tolerance, skin status, pertinent labs and weight trend. F/u in 2 to 3 days. Rec.: 1.) Advance diet as medically feasible. 2) consider alternate nutrition support if pt continues to be NPO. If EN is choice of route consider Glucerna @ 70 ml.hr per MD approval3) refer to CDE on DC 4) consider prostat 1 packet bid as RFT improve5) consider mVI.C bid6) continue current plan of care
--- NOTE | 2018-11-01 13:20 | NUR ---
DAUGHTER CALLED, UPDATED ON PLAN OF CARE AFTER PASSWORD OBTAINED
--- NOTE | 2018-11-01 14:15 | NUR ---
NEPHEW AT BEDSIDE, HAD PASSWORD AND RN UPDATED ON PLAN OF CARE
--- NOTE | 2018-11-01 16:12 | NUR ---
DR MORRIS AT BEDSIDE, DR EXAMINED PATIENT. DR AWARE OF URINE OUTPUT 175ML SINCE BEGINNING OF THIS SHIFT, AWARE OF PITTING EDEMA TO BILATERAL UPPER/LOWER EXTREMITIES AND AWARE THAT RN TURNED IVF TO TKO AROUND 0800. DR GAVE ORDER FOR LASIX DRIP AT 10 MG/HR AND OK TO DC IVF.
[2018-11-01] MEDS: FUROSEMIDE INJECTION 250 MG in D5W 5% 225 ML IV SCH (17:35)
[2018-11-01] MEDS: Glucerna 1.2 Cal 1Liter BOTTLE GT SCH (18:06)
[2018-11-01] MEDS: MIDAZOLAM DRIP 50 mg/50mL 50 ML IV SCH (21:12)
--- NOTE | 2018-11-01 21:30 | NUR ---
Patient bathe/linen change Patient given complete bath. Skin integrity assessed for any changes. Linens changed. Patient repositioned for comfort.
[2018-11-02] VITALS (110 sets, daily range): BP systolic 101–129; BP diastolic 33–73
[2018-11-02] MEDS: ACCU-CHEK COMFORT CURVE STRIP VI SCH ×5 (00:05→23:22)
[2018-11-02] MEDS: InsuLIN REG 1unit/0.01ml Soln (100units/ml) SC SCH ×5 (00:06→23:22)
[2018-11-02] MEDS: PHENYLEPHRINE INJ 20 MG in SODIUM CHL 0.9% 250 ML IV SCH ×3 (02:34→19:14)
[2018-11-02 06:04] LABS: Basophils # (auto) 0.1 uL; Basophils % (auto) 1.1 % (0.0-2.0); Lymphocytes # (auto) 0.4 uL; Monocytes # (auto) 0.5 uL
[2018-11-02 06:07] LABS: Eosinophils # (auto) 0.2 uL; Eosinophils % (auto) 3.1 % (0.0-7.0); Hematocrit 19.7 % (36.0-46.0); Mean Corpuscular Hemoglobin 29.5 pg (28.0-32.0); Mean Corpuscular Hgb Conc. 34.2 g/dL (32.0-36.0); Mean Corpuscular Volume 86.2 fL (80.0-100.0); Monocytes % (auto) 8.6 % (0.0-12.0); Neutrophils # (auto) 5.1 uL; Neutrophils % (auto) 80.2 % (37.0-80.0); Platelet Count (auto) 54 10^3/uL (140-450); Red Blood Cells 2.28 10^6/uL (4.0-5.20); Red Cell Distribution Width 18.2 % (11.8-14.3); White Blood Cell 6.4 10^3/uL (4.4-10.8)
[2018-11-02 06:11] LABS: BUN/Creatinine Ratio 24.7; Calcium 7.4 mg/dL (8.5-10.1); Magnesium 1.7 mg/dL (1.6-2.6); Potassium 3.5 mmol/L (3.5-5.1)
[2018-11-02 06:13] LABS: Hemoglobin 6.7 g/dL (12.2-16.2)
--- NOTE | 2018-11-02 06:15 | NUR ---
Will repeat hemoglobin level HB level 6.7, will repeat lab because pt has no active bleeding and yesterday hb was normal.
[2018-11-02] MEDS: PIPERACILLIN-TAZOB 2.25GM 50 ML IV SCH ×3 (06:47→21:45)
[2018-11-02] MEDS: DOBUTamine 1000MCG/ML 250 ML IV SCH ×2 (06:48→17:12)
[2018-11-02 07:16] LABS: Hematocrit 22.8 % (36.0-46.0); Hemoglobin 7.5 g/dL (12.2-16.2)
--- NOTE | 2018-11-02 07:35 | NUR ---
OPEN Report received from Kip RN, care assumed. Patient observed resting in bed on ventilator. Patient is not on sedation at this time. Patient moves upper extremities and head towards noise but does not open eyes. Afebrile. SCD's on bilateral lower extremities. Physical assessment performed. Sinus rhythm noted. Patient on Dobutrex and Lasix gtt running through left IJ TLC. Right upper chest port-a-cath noted, SL. Lungs coarse, tolerating ventilator at this time. Meza catheter patent, hung below bladder. See skin assessment. Heels off loaded on pillows. Bed locked in lowest position. No distress or pain noted at this time.
--- NOTE | 2018-11-02 08:00 | NUR ---
ELIMINATION Patient had small liquid, brown, loose, bowel movement. Nicole care and skin assessment performed. Z-guard and new nicole pad placed. Patient repositioned on side. Patient tolerated activity fair. Bed locked in lowest position, extremities elevated on pillows. Alarms in place. Will continue to monitor.
--- NOTE | 2018-11-02 09:30 | NUR ---
LAB Blood draw performed and sent to lab for type and screen.
--- NOTE | 2018-11-02 09:52 | NUR ---
BLOOD BANK Blood bank called and stated that due to patient having so many antibodies in her blood, obtaining her PRBC will take some time. Will notify
[2018-11-02] MEDS: AMIODARONE HCL 200 MG TAB PO SCH ×2 (09:56→21:45)
[2018-11-02] MEDS: ASPirin-EC 81 mg tab PO SCH (09:56)
[2018-11-02] MEDS: FAMOTIDINE (10MG/ML) 2ML VL IV SCH ×2 (09:56→21:44)
--- NOTE | 2018-11-02 10:55 | NUR ---
CONTACT Attempted to reach patient daughter to obtain consent for blood transfusion. No answer, message left. Will attempt again.
--- NOTE | 2018-11-02 11:40 | NUR ---
URINE Sample of urine sent for labs ordered by Nephrology.
--- NOTE | 2018-11-02 11:55 | NUR ---
CONTACT Still unable to reach patients daughter for consent. Will continue to try and reach.
--- NOTE | 2018-11-02 11:57 | NUR ---
RESIDUALS Tube feeding residual checked, only 20 cc noted. Feeding rate increased to 50 cc/hr.
[2018-11-02 12:08] LABS: Urine Bacteria NONE SEEN /hpf (None Seen); Urine Blood Negative /uL (Negative); Urine Specific Gravity 1.012 (1.001-1.035); Urine WBC 11 /hpf (0 - 5)
--- NOTE | 2018-11-02 12:46 | NUR ---
CONTACT Patient daughter Maame returned call and gave telephone consent for blood product administration. She has been updated on plan of care. She stated that this drop in hgb level has happened a few times in the past with unknown cause. All questions and concerns addressed.
[2018-11-02 14:12] LABS: Creatinine, Urine 52 mg/dL (30.0-125.0); Sodium Urine 43 mmol/L (40-220)
--- NOTE | 2018-11-02 14:20 | NUR ---
NEURO Patient able to open eyes briefly. Patient not following commands at this time. Will reorient and assess comprehension.
--- NOTE | 2018-11-02 15:10 | NUR ---
ELIMINATION Patient had moderate liquid, brown, loose, bowel movement. Nicole care and skin assessment performed. Z-guard and new nicole pad placed. Patient repositioned on side. Patient tolerated activity fair. Bed locked in lowest position, extremities elevated on pillows. Alarms in place. Will continue to monitor.
--- NOTE | 2018-11-02 15:59 | NUR ---
RESIDUALS Tube feeding residual checked, 70 cc noted. Continue feedings at same rate.
[2018-11-02] MEDS: FUROSEMIDE INJECTION 250 MG in D5W 5% 225 ML IV SCH (16:41)
--- NOTE | 2018-11-02 19:11 | NUR ---
BLOOD PRODUCT First unit of PRBC administration begun. No reactions noted at this time.
--- NOTE | 2018-11-02 19:12 | NUR ---
REPORT Report given to Kip MAGAÑA, care endorsed.
[2018-11-02] MEDS: AMIODARONE HCL 900 MG in DEXTROSE 500 ML IV SCH (20:00)
[2018-11-02] MEDS: MIDAZOLAM DRIP 50 mg/50mL 50 ML IV SCH (21:12)
--- NOTE | 2018-11-02 21:16 | NUR ---
Patient bathe/linen change Patient given complete bath. Skin integrity assessed for any changes. Linens changed. Patient repositioned for comfort.
[2018-11-02 23:41] LABS: Magnesium 1.7 mg/dL (1.6-2.6); Potassium 3.8 mmol/L (3.5-5.1)
--- NOTE | 2018-11-02 23:50 | NUR ---
BIGEMINY/LABS PATIENT WAS HAVING BIGEMINY FROM 2252 TO 2308. OTHER VITAL SIGNS ARE STABLE. K AND MAG LEVEL CHECKED ORDERED, K 3.8 AND MAG 1.7. WILL MONITOR CLOSELY.
[2018-11-03] VITALS (79 sets, daily range): BP systolic 97–126; BP diastolic 34–56
[2018-11-03] MEDS: DOBUTamine 1000MCG/ML 250 ML IV SCH ×2 (03:09→13:31)
[2018-11-03] MEDS: PHENYLEPHRINE INJ 20 MG in SODIUM CHL 0.9% 250 ML IV SCH ×3 (03:34→20:14)
[2018-11-03] MEDS: PIPERACILLIN-TAZOB 2.25GM 50 ML IV SCH ×2 (05:54→14:11)
[2018-11-03] MEDS: InsuLIN REG 1unit/0.01ml Soln (100units/ml) SC SCH ×3 (06:27→18:44)
[2018-11-03] MEDS: ACCU-CHEK COMFORT CURVE STRIP VI SCH ×3 (06:27→18:09)
[2018-11-03 07:12] LABS: BUN/Creatinine Ratio 25.3; Calcium 7.9 mg/dL (8.5-10.1); Potassium 3.4 mmol/L (3.5-5.1)
[2018-11-03 07:17] LABS: Basophils # (auto) 0 uL; Basophils % (auto) 0.4 % (0.0-2.0); Eosinophils # (auto) 0.1 uL; Eosinophils % (auto) 1.8 % (0.0-7.0); Hematocrit 27.8 % (36.0-46.0); Hemoglobin 9.4 g/dL (12.2-16.2); Lymphocytes # (auto) 0.6 uL; Mean Corpuscular Hemoglobin 28.6 pg (28.0-32.0); Mean Corpuscular Hgb Conc. 33.8 g/dL (32.0-36.0); Mean Corpuscular Volume 84.6 fL (80.0-100.0); Monocytes # (auto) 0.8 uL; Monocytes % (auto) 10.2 % (0.0-12.0); Neutrophils # (auto) 6.5 uL; Neutrophils % (auto) 80.6 % (37.0-80.0); Nucleated Red Blood Cells % 0.2 %; Red Blood Cells 3.28 10^6/uL (4.0-5.20); Red Cell Distribution Width 18.2 % (11.8-14.3)
[2018-11-03 08:17] LABS: Platelet Count (auto) 70 10^3/uL (140-450)
--- NOTE | 2018-11-03 10:00 | NUR ---
CPAP ORDERED PER DR. MORRIS. CHANGED TO CPAP MODE PEEP 5,PS 8.
[2018-11-03] MEDS ORDERED: POTASSIUM CHL 20MEQ/100ML 100 ML IV ONE ×2 (10:30→14:15)
[2018-11-03] MEDS: AMIODARONE HCL 200 MG TAB PO SCH (10:43)
[2018-11-03] MEDS: FAMOTIDINE (10MG/ML) 2ML VL IV SCH (10:44)
[2018-11-03] MEDS: ASPirin-EC 81 mg tab PO SCH (10:44)
--- NOTE | 2018-11-03 11:09 | NUR ---
Resumed care at 0700, orders reviewed and ongoing assessments being done. Being treated for multiple problems and remains intubated. Sedation has been off since 10-30-18. Does wake up and opens eyes with sustained eye contact and can follow simple directions, ie: squeezed hands, nod head to yes or no questions. Reoriented to staff, place and situation and plan of care. Vital signs are stable and not on any vasopressors. CPAP trial initiated at 1000 by Josue MARTINEZ. Has remained calm and in no acute distress, pending ABG with weaning parameters. Maintaining supine for CPAP and tube feeding has been off since earlier today. Daughter Maame has arrived and in room visiting.
--- NOTE | 2018-11-03 11:31 | NUR ---
Dr. Craig rounded for Nephrology today. Data reviewed, K 3.4. Supplemented with a 20 MEQ KRYDER.
--- NOTE | 2018-11-03 11:38 | NUR ---
Nutrition Follow-up Notes Wt.: 90.3 kg Pt's intubated sedated with no family by bedside. pt is currently NPO with EN support on hold for CPAP per RN. Pt was on EN support with Glucerna @ 70 ml.hr providing 2016 kcals and 100 gm proteins. Est. Needs BW [id number] kcal (25-30 kcal/kgBW), 60-75 gms pro (0.8-1.0 gms/kgBW r/t elev RFT severe hypoalb wounds). Will continue to monitor pertinent labs and reassess nutrient need prn Labs: BUN 77 H, CREAT 3.04 H, GLU 247 H, CA 7.9 L Skin: Papa scale 8, high risk, pt's with pressure ulcer sacrum per RN doc. refer to notes for details GI: Pt had 2 BM today per numerical control nesting operator. PES: Altered nutrition related lab values r/t acute/chronic medical condition aeb elev RFT severe hypoalb, hypocalcemia, hyperglycemia, elev A1C Impaired swallowing r/t current medical condition aeb pt`s intubated sedated with order of NPO Will continue to monitor NPO status, skin status, pertinent labs and weight trend. F/u in 2 to 3 days. Rec.: 1.) Advance diet as medically feasible. 2) Resume EN support with Glucerna @ 70 ml.hr per MD approval if pt fails CPAP. 3) refer to CDE on DC 4) consider prostat 1 packet bid as RFT improve5) consider mVI.C bid6) continue current plan of care
--- NOTE | 2018-11-03 12:15 | NUR ---
PT. EXTUBATED, PER DR. MORRIS'S T.O. TAKEN BY RN. SAN.
[2018-11-03] MEDS: NOREPINEPHRINE 8 MG/250ML KIT 250 ML IV SCH (14:15)
--- NOTE | 2018-11-03 15:04 | NUR ---
PT. DOING WELL, NO RESP. DISTRESS NOTED, HR=86,RR=19,JU53=896%,VZ=126/51. PT. ON COOL AEROSOL AT 30%.
--- NOTE | 2018-11-03 17:08 | NUR ---
Tolerated CPAP trail and successfully extubated at 1215. Remains oriented and in no acute distress. On nasal cannula now 2L/min and maintaining pulse oximetry >95%. Voice is soft and has been able to tolerate ice chips. Liquid diet ordered for dinner and will advance as tolerated. Dr. Boland rounded at 1410. Daughter Maame in room at the time. Per Dr. Boland, continue with Dobutamine and Lasix drip and has been hemodynamically stable. Has been incontinent of stool twice. Perianal area and buttocks red and very sensitive. Maintaining skin clean and dry and applying skin barrier cream. Cleansed and changed dressing to sacral area, pressure wound.
[2018-11-03] MEDS: FUROSEMIDE INJECTION 250 MG in D5W 5% 225 ML IV SCH (17:20)
--- NOTE | 2018-11-03 18:02 | NUR ---
WOUND CARE NOTE: Wound care in to see patient for reevaluation of wounds that are present on admission. Patient continue resting in ICU bed in Rm. 106. She's extubated earlier, now awake, alert and able to verbalize needs. Patient is in no stated pain at this time. Patient needs assistance in turning and repositioning and her Papa score is 13. Skin/wound assessment done with the assistance of patient's nurse, ARCHANA Solis. Noted patient's bilateral arm are edematous. ARCHANA Solis reported patient obtain partial thickness skin tear to Rt forearm, and she just cleansed and applied dressing. Patient's upper sacral pressure injury looks improving as wound is less erythremic although its open to partial thickness and much bigger measuring 6x7cm. Patient's DTI (Deep tissue injury) to R lower sacrum remain the same, measuring 3x3, dark red, soft boggy to touch,no drainage, no odor noted. ARCHANA Solis reported patient having frequent episode of loose stool. Mckenna care given, applied Z Guard cream and covered upper sacrum with Opti foam sacral dressing. New photograph of wounds are taken for reference. Repositioned patient for comfort on her back per ARCHANA Solis's instruction due to "almost dinner time". Redistributed pressure points with pillows and elevated edematous extremities on pillows. Patient tolerated well. ARCHANA Solis at bedside. RECOMMENDATION: Continuation of all wound care orders prescribed by MD, continue with skin/wound plan of care, continue monitoring by wound care while patient is hospitalized. Addendum: 11/03/18 at 1838 by Pippa Delcid RN Amended: Links added.
--- NOTE | 2018-11-03 19:35 | NUR ---
open received report from day rn, assumed care of female pt. pt appears to be resting in bed. vs wnl, on nc 2l, respirations are equal and unlabored, responds spontaneously, pt has r ij triple lumen no ss of redness or swelling, dressing is clean and dry,patent, pt has portacath r subclavian. pt r arm is wrapped, bilateral extremities are edematous and ecchymosis. pt states she is not having pain at this time. vs wnl pt has a catheter hanging below bladder patent and draining to gravity. bed is in the lowest position, wheels locked, side rails up x2. pt educated on use of call light, pt verbalized understanding, call light within reach. pt in full view of rn station, will continue to care for and monitor.
--- NOTE | 2018-11-03 19:35 | NUR ---
Assisted with dinner, clear liquid diet. Tolerated well with no swallowing difficulties. No changes in neuro status.
[2018-11-03] MEDS: AMIODARONE HCL 900 MG in DEXTROSE 500 ML IV SCH (20:00)
--- NOTE | 2018-11-03 23:00 | NUR ---
pt was pulled up in bed, pt tolerated care.pt states discomfort with arm with movement.
[2018-11-04] VITALS (60 sets, daily range): BP systolic 110–129; BP diastolic 34–57
[2018-11-04] MEDS: FAMOTIDINE (10MG/ML) 2ML VL IV SCH ×2 (00:12→10:48)
[2018-11-04] MEDS: PIPERACILLIN-TAZOB 2.25GM 50 ML IV SCH ×3 (00:12→14:25)
[2018-11-04] MEDS: AMIODARONE HCL 200 MG TAB PO SCH ×2 (00:12→10:48)
[2018-11-04] MEDS: DOBUTamine 1000MCG/ML 250 ML IV SCH (01:00)
--- NOTE | 2018-11-04 03:00 | NUR ---
hygiene partial bed bath and partial sameer change provided. pt repositioned for safety and comfort
[2018-11-04 04:20] LABS: Basophils # (auto) 0.1 uL; Basophils % (auto) 0.8 % (0.0-2.0); Eosinophils # (auto) 0.2 uL; Eosinophils % (auto) 2.1 % (0.0-7.0); Hemoglobin 10.2 g/dL (12.2-16.2); Lymphocytes # (auto) 0.6 uL; Lymphocytes % (auto) 7.9 % (10.0-50.0); Mean Corpuscular Hemoglobin 28.2 pg (28.0-32.0); Mean Corpuscular Volume 85.6 fL (80.0-100.0); Monocytes # (auto) 0.8 uL; Monocytes % (auto) 10.3 % (0.0-12.0); Neutrophils # (auto) 6.4 uL; Neutrophils % (auto) 78.9 % (37.0-80.0); Nucleated Red Blood Cells % 0.1 %; Platelet Count (auto) 71 10^3/uL (140-450); Red Blood Cells 3.62 10^6/uL (4.0-5.20); Red Cell Distribution Width 18.4 % (11.8-14.3); White Blood Cell 8.1 10^3/uL (4.4-10.8)
[2018-11-04 04:29] LABS: BUN/Creatinine Ratio 24.1; Calcium 8.1 mg/dL (8.5-10.1); Potassium 3.4 mmol/L (3.5-5.1)
[2018-11-04] MEDS: PHENYLEPHRINE INJ 20 MG in SODIUM CHL 0.9% 250 ML IV SCH ×3 (04:34→21:14)
--- NOTE | 2018-11-04 06:07 | NUR ---
PT ASSESSED FOR PRN HHN TX. PT IS ON 1LNC SPO2 100%, HR 87, RR 18. NO S/S OF RESPIRATORY DISTRESS AT THIS TIME. LUNGS ARE CLEAR. WILL CONTINUE TO MONITOR FOR PRN TX.
[2018-11-04] MEDS: ACCU-CHEK COMFORT CURVE STRIP VI SCH ×4 (06:13→18:15)
[2018-11-04] MEDS: InsuLIN REG 1unit/0.01ml Soln (100units/ml) SC SCH ×4 (06:13→18:20)
[2018-11-04] MEDS ORDERED: FUROSEMIDE INJECTION 250 MG in D5W 5% 225 ML IV SCH (10:00)
[2018-11-04] MEDS ORDERED: POTASSIUM EFFERVESENT TAB 25 MEQ PO ONE (10:00)
[2018-11-04] MEDS: ASPirin-EC 81 mg tab PO SCH (10:47)
[2018-11-04 11:29] LABS: % Iron Saturation 17.7 % (15-50)
[2018-11-04] MEDS: DOBUTamine HCL 500 MG in D5W 5% 210 ML IV SCH (11:50)
[2018-11-04] MEDS: NOREPINEPHRINE 8 MG/250ML KIT 250 ML IV SCH (14:15)
[2018-11-04] MEDS ORDERED: ALBUMIN 5% 250 ML IV ONE ×2 (16:00→21:40)
[2018-11-04] MEDS ORDERED: HYDROcodone-ACET 5/325MG TAB PO PRN (16:00)
--- NOTE | 2018-11-04 19:00 | NUR ---
ADELAIDE RECEIVED REPORT FROM MANAGER WASTEWATER NURSE. PT APPEARS CALM BUT WEAK, THERE ARE NO SIGNS OR SYMPTOMS OF RESPIRATORY DISTRESS, AOX4, REPOSITIONED FOR COMFORT AND SAFETY, BED IN THE LOWEST POSITION, SIDE RAILS ARE 3X. CALL LIGHT AT THE PT'S SIDE, PT WAS EDUCATED ON HOW TO USE CALL LIGHT. PT IS ON 1L O2 AND HAS BUSTOS WHICH IS DRAINED BY GRAVITY. PT HAS PATENT AND INTACT PORTACATH RIGHT SIDE OF CHEST AND CENTRAL LINE ON LEFT SIDE OF THE NECK. SEE IV SPREADSHEET FOR INFUSED MEDICATIONS. AT 0900 - FAMILY IS AT THE BEDSIDE THEIR QUESTIONS AND CONCERNS WERE ADDRESSED. AT 1000 - JESUSITA ESQUIVEL IS AT THE BEDSIDE, RECEIVED ORDERS FROM PHYSICIAN, SEE ORDERS. AT 1120 - RAHUL ESQUIVEL IS AT THE BEDSIDE, RECEIVED ORDERS. AT 1600 PT'S DRESSING ON THE RIGHT ARM WAS CHANGED. PT CLAIMS THAT SHE HAS CHRONIC PAIN IN HER LEFT HAND, MD AWARE, PT REFUSED PAIN MEDICATIONS. PT IS INCONTINENT OF STOOL. BARRIER CREAM WAS APPLIED ON HER SACRUM, OPTIFORM IS INTACT ON LOWER BACK. DURING ACTIVITY SUCH EATING DINNER, NOTED INCREASE IN WORK OF BREATHING WITH DECREASE IN PULSE OX TO 89%, REAPPLIED NC PULES OX INCREASED TO 98%. PT DENIES SOB. CURRENTLY IN BED, VS ARE STABLE. Signed: 11/04/18 at 1903 by ALLISON GILMORE <Co-Signature Required> Co-Signed: 11/04/18 at 1903 by Irma Jolley RN RN
--- NOTE | 2018-11-04 19:20 | NUR ---
open received report from day rn, assumed care of female pt. pt appears to be resting in bed. vs wnl, on nc 2l, respirations are equal and unlabored, responds spontaneously, pt has R IJ triple lumen, no ss of redness or swelling, dressing is clean and dry,patent, pt has portacath r subclavian. pt r arm is wrapped, bilateral extremities are edematous and ecchymosis. pt states she is not having pain at this time. vs wnl pt has a catheter hanging below bladder patent and draining to gravity. bed is in the lowest position, wheels locked, side rails up x2. pt educated on use of call light, pt verbalized understanding, call light within reach. pt in full view of rn station, will continue to care for and monitor.
--- NOTE | 2018-11-04 19:22 | NUR ---
Respiratory note: AT BEDSIDE TO ASSESS PT FOR PRN, TX NOT INDICATED AT THIS TIME. BS ARE DIMINISHED CLEAR T/O. POX 98% ON 1LPM NC. HR 85. RT NAME AND PAGER ASSIGNMENT WRITTEN ON PTS ROOM BOARD.
[2018-11-04] MEDS: AMIODARONE HCL 900 MG in DEXTROSE 500 ML IV SCH (20:00)
[2018-11-05] VITALS (27 sets, daily range): BP systolic 113–141; BP diastolic 47–62
[2018-11-05] MEDS: FAMOTIDINE (10MG/ML) 2ML VL IV SCH ×3 (00:29→22:37)
[2018-11-05] MEDS: PIPERACILLIN-TAZOB 2.25GM 50 ML IV SCH ×4 (00:29→22:36)
[2018-11-05] MEDS: AMIODARONE HCL 200 MG TAB PO SCH ×3 (00:30→22:36)
--- NOTE | 2018-11-05 01:00 | NUR ---
tolerates care pt was pulled up in bed, pt tolerated care.pt states discomfort with arm with movement.
[2018-11-05 04:08] LABS: Basophils # (auto) 0.1 uL; Basophils % (auto) 1.2 % (0.0-2.0); Eosinophils # (auto) 0.2 uL; Eosinophils % (auto) 2.6 % (0.0-7.0); Hematocrit 30.1 % (36.0-46.0); Hemoglobin 10.1 g/dL (12.2-16.2); Lymphocytes # (auto) 0.5 uL; Lymphocytes % (auto) 7.8 % (10.0-50.0); Mean Corpuscular Hemoglobin 28.5 pg (28.0-32.0); Mean Corpuscular Hgb Conc. 33.7 g/dL (32.0-36.0); Mean Corpuscular Volume 84.8 fL (80.0-100.0); Monocytes # (auto) 0.8 uL; Monocytes % (auto) 12.8 % (0.0-12.0); Neutrophils % (auto) 75.6 % (37.0-80.0); Platelet Count (auto) 74 10^3/uL (140-450); Red Blood Cells 3.55 10^6/uL (4.0-5.20); Red Cell Distribution Width 18.1 % (11.8-14.3); White Blood Cell 6.6 10^3/uL (4.4-10.8)
[2018-11-05 04:24] LABS: Albumin 2.4 g/dL (3.4-5.0); Calcium 8.4 mg/dL (8.5-10.1); Potassium 3.5 mmol/L (3.5-5.1)
[2018-11-05 04:28] LABS: BUN/Creatinine Ratio 23.7; Bilirubin, Total 0.5 mg/dL (0.2-1.0); Total Protein 5.8 g/dL (6.4-8.2)
--- NOTE | 2018-11-05 05:00 | NUR ---
pt denied hygiene at this time pt denies bed bath or oral care at this time, pt said maybe later
[2018-11-05] MEDS: DOBUTamine HCL 500 MG in D5W 5% 210 ML IV SCH ×2 (05:07→23:54)
[2018-11-05] MEDS: PHENYLEPHRINE INJ 20 MG in SODIUM CHL 0.9% 250 ML IV SCH ×3 (05:24→22:14)
[2018-11-05] MEDS: ACCU-CHEK COMFORT CURVE STRIP VI SCH ×4 (06:00→18:40)
[2018-11-05] MEDS: InsuLIN REG 1unit/0.01ml Soln (100units/ml) SC SCH ×4 (06:00→18:41)
--- NOTE | 2018-11-05 07:10 | NUR ---
Respiratory note: PT RESTING COMFORTABLY. NO RESPIRATORY DISTRESS NOTED. SP02 98% ON 1L NC, HR 89, RR 19, BS CLEAR/ DIMINISHED T/O. PRN TX NOT INDICATED AT THIS TIME. PT INFORMED TO PUSH CALL BUTTON IF INCREASED WOB, SOB, OR WHEEZING OCCUR.
--- NOTE | 2018-11-05 07:20 | NUR ---
OPENING NOTE SHIFT REPORT RECEIVED AND ASSUMED CARE OF PT FROM MARIE MAGAÑA
--- NOTE | 2018-11-05 08:10 | NUR ---
BM PT HAD SMALL SMEAR BM
--- NOTE | 2018-11-05 09:00 | NUR ---
PT AT BEDSIDE WITH PT AND TRANSFERRED TO CHAIR. PT TOLERATING WELL
[2018-11-05] MEDS: ASPirin-EC 81 mg tab PO SCH (10:09)
--- NOTE | 2018-11-05 11:00 | NUR ---
BM PT HAD LARGE SIZE SOFT BROWN BM, CLEANED AND LINENS CHANGED
[2018-11-05] MEDS: POTASSIUM EFFERVESENT TAB 25 MEQ PO SCH (11:22)
[2018-11-05] MEDS: METOLAZONE 5 MG TAB PO SCH (11:23)
[2018-11-05] MEDS: FUROSEMIDE INJECTION 250 MG in D5W 5% 225 ML IV SCH (11:36)
[2018-11-05] MEDS: NOREPINEPHRINE 8 MG/250ML KIT 250 ML IV SCH (14:15)
[2018-11-05] MEDS: MEGESTROL ACETATE 20 MG TAB PO SCH ×2 (15:10→22:00)
--- NOTE | 2018-11-05 18:15 | NUR ---
PT RESTING COMFORTABLY AT THIS TIME. SPO2 100% ON 3L NC, HR 90, RR 18. NO S/S OF RESPIRATORY DISTRESS. NO MED NEB TX INDICATED. WILL CONTINUE TO MONITOR PT.
--- NOTE | 2018-11-05 18:54 | NUR ---
MESSAGED DR. MORRIS REGARDING ORDER FOR PO AMIODARONE AND IV AMIODARONE CLARIFICATION
--- NOTE | 2018-11-05 19:10 | NUR ---
DR. MORRIS MESSAGED BACK TO [place] AMIODARONE JARETH
--- NOTE | 2018-11-05 19:25 | NUR ---
CLOSING NOTE REPORT GIVE BACK AND CARE ENDORSED TO MARIE MAGAÑA
--- NOTE | 2018-11-05 20:10 | NUR ---
open received report from day rn, assumed care of female pt. pt IS resting in bed. vs wnl, on nc 2l, respirations are equal and unlabored, responds spontaneously, pt has R IJ triple lumen, no ss of redness or swelling, dressing is clean and dry,patent, pt has portacath r subclavian. pt r arm is wrapped, bilateral extremities are edematous and ecchymosis. pt states she is not having pain at this time. vs wnl pt has a catheter hanging below bladder patent and draining to gravity. bed is in the lowest position, wheels locked, side rails up x2. pt educated on use of call light, pt verbalized understanding, call light within reach. pt in full view of rn station, will continue to care for and monitor.
--- NOTE | 2018-11-05 21:55 | NUR ---
tolerates care pt was pulled up in bed, pt tolerated care.pt states discomfort with arm with movement.
--- NOTE | 2018-11-05 23:50 | NUR ---
ANXIETY MED PT STATED SHE SHES ANXIETY WITH THE BIPAP ON, PT GIVEN PRESCRIBED MEDICATION FOR ANXIETY
[2018-11-06] VITALS (9 sets, daily range): BP systolic 115–148; BP diastolic 51–67
--- NOTE | 2018-11-06 03:50 | NUR ---
hygiene partial bed bath and partial sameer change provided. pt repositioned for safety and comfort
[2018-11-06 04:43] LABS: Albumin 2.2 g/dL (3.4-5.0); Calcium 8.3 mg/dL (8.5-10.1); Potassium 3.5 mmol/L (3.5-5.1)
[2018-11-06 04:47] LABS: BUN/Creatinine Ratio 23.1; Bilirubin, Total 0.4 mg/dL (0.2-1.0); Total Protein 5.6 g/dL (6.4-8.2)
[2018-11-06] MEDS: InsuLIN REG 1unit/0.01ml Soln (100units/ml) SC SCH ×4 (06:00→18:10)
--- NOTE | 2018-11-06 06:06 | NUR ---
Respiratory note: PRN MED NEB TX NOT INDICATED AT THIS TIME. HR 88, RR 18, SPO2 98% ON 1 L NC, BILATERAL BS ARE CLEAR AND DIMINISHED. NO SIGNS OR SYMPTOMS OF RESPIRATORY DISTRESS NOTED. PT INFORMED TO HIT CALL BUTTON IF FEELING SOB OR WHEEZING.
[2018-11-06] MEDS: ACCU-CHEK COMFORT CURVE STRIP VI SCH ×4 (06:19→17:52)
[2018-11-06] MEDS: PIPERACILLIN-TAZOB 2.25GM 50 ML IV SCH ×3 (06:19→21:57)
[2018-11-06] MEDS: PHENYLEPHRINE INJ 20 MG in SODIUM CHL 0.9% 250 ML IV SCH (06:20)
[2018-11-06] MEDS: DOBUTamine 1000MCG/ML 250 ML IV SCH ×2 (07:45→17:49)
--- NOTE | 2018-11-06 07:50 | NUR ---
ICU patient trans to floor SBAR received from AUTO TECHNICIAN Amber . YARIEL MOCK transferred to 291B via gurney on ekg monitor tech and portable 02. All patient medications and personal belongings transferred with patient to receiving floor. Patient is awake and alert x3 (person, place and situation. Reoriented patient to date. Patient has no s/s of distress/sob or pain at this time. Instructed patient on poc, patient verbalized understanding. Bed is in lowest position with side rails raised x2, bed wheels locked, bangura is hanging below bladder and is draining yellow urine, and call light is within reach. Will continue to monitor. Informed Amber titrated drips need to be discontinued.
--- NOTE | 2018-11-06 07:51 | NUR ---
PER MACHINE GRAINER MARIE PATIENT HAS A RUC PORT A CATH THAT WAS ACCESSED. ASKED RN IF THERE IS ORDERS TO ACCESS PER RN SHE THINKS THERE IS, RN IS UNAWARE WHO ACCESSED PORT A CATH AND WHEN.
[2018-11-06] MEDS: MEGESTROL ACETATE 20 MG TAB PO SCH ×2 (10:32→21:57)
[2018-11-06] MEDS: AMIODARONE HCL 200 MG TAB PO SCH ×2 (10:32→21:57)
[2018-11-06] MEDS: FAMOTIDINE (10MG/ML) 2ML VL IV SCH ×2 (10:32→21:57)
[2018-11-06] MEDS: METOLAZONE 5 MG TAB PO SCH (10:32)
[2018-11-06] MEDS: ASPirin-EC 81 mg tab PO SCH (10:32)
[2018-11-06] MEDS: POTASSIUM EFFERVESENT TAB 25 MEQ PO SCH (10:33)
--- NOTE | 2018-11-06 10:45 | NUR ---
PHYSICAL THERAPY PLACED PATIENT IN CHAIR. PATIENT HAS NO S/S OF DISTRESS/SOB OR PAIN AT THIS TIME.
--- NOTE | 2018-11-06 11:49 | NUR ---
CALLED PHARMACY FOR IV LASIX. PER TECH THEY WILL SEND IT SOON
[2018-11-06] MEDS: FUROSEMIDE INJECTION 250 MG in D5W 5% 225 ML IV SCH (12:00)
--- NOTE | 2018-11-06 12:00 | NUR ---
PATIENT BACK IN BED WITH ASSISTANCE FROM PHYSICAL THERAPY. PATIENT HAS NO S/S OF DISTRESS/SOB OR PAIN AT THIS TIME.
--- NOTE | 2018-11-06 15:46 | NUR ---
SPOKE WITH DR. MORRIS INFORMED PORT A CATH WAS ACCESSED BUT THERE WERE NO ORDERS, IS AWARE AND STATED IT IS OKAY TO ACCESS. WILL FOLLOW THROUGH WITH ORDERS.
--- NOTE | 2018-11-06 16:30 | NUR ---
WOUND CARE WOUND CARE DONE TO SACRUM AND RIGHT FOREARM ORDERED. PATIENT TOLERATED WELL. WILL CONTINUE TO MONITOR.
--- NOTE | 2018-11-06 18:45 | NUR ---
SPECIALTY MATTRESS DELIVERED. PATIENT PLACED ON MATTRESS.
--- NOTE | 2018-11-06 19:15 | NUR ---
Opening Shift Note Received report from carlene Vee RN. Assumed care of patient, awake and alert, but slow to response. No S/S of distress/SOB or pain. Instructed on POC and to call for assist PRN, will continue to monitor for changes Q1hr and PRN. Bed placed in lowest position, bed alarm turned on and call light within reach.
--- NOTE | 2018-11-06 19:31 | NUR ---
RT NOTE PRN ASSESSMENT DONE PRN NOT INDICATED AT THIS TIME NO RESP DISTRESS NOTED.
--- NOTE | 2018-11-06 19:38 | NUR ---
CLOSING SHIFT NOTE ENDORSED CARE TO HOT WORT SETTLER RN DELTA. PATIENT HAS NO S/S OF DISTRESS/SOB OR PAIN AT THIS TIME.
[2018-11-07] MEDS: InsuLIN REG 1unit/0.01ml Soln (100units/ml) SC SCH ×5 (00:44→23:54)
--- NOTE | 2018-11-07 04:18 | NUR ---
ROUNDS Patient had a bowel movement, incontinent. Complete bed changed done. Patient tolerated well. No distress noted with even and unlabored respirations, saturating at 98% on 2LNC, and patient denies pain.
[2018-11-07 05:00] VITALS: BP 116/68
[2018-11-07] MEDS: DOBUTamine 1000MCG/ML 250 ML IV SCH ×3 (05:01→20:08)
[2018-11-07] MEDS: PIPERACILLIN-TAZOB 2.25GM 50 ML IV SCH ×3 (05:31→22:07)
--- NOTE | 2018-11-07 05:58 | NUR ---
Respiratory note: ROUTINE PRN MN TX CHECK. HR 74, RR 18, POX 98% ON RA, BREATH SOUNDS ARE CLEAR. NO SOB OR DISTRESS NOTED. PT WAS NOTIFY TO HAVE RT PAGE FOR TX.
[2018-11-07] MEDS: ACCU-CHEK COMFORT CURVE STRIP VI SCH ×5 (06:00→23:54)
--- NOTE | 2018-11-07 07:15 | NUR ---
OPENING SHIFT NOTE ASSUMED CARE OF PATIENT FROM LOCK OPERATOR RN DELTA. PATIENT IS AWAKE AND ALERT X3 (PERSON, PLACE AND SITUATION). WILL CONTINUE TO REORIENT PATIENT TO TIME. INSTRUCTED PATIENT ON POC, PATIENT VERBALIZED UNDERSTANDING. BED IS IN LOWEST POSITION WITH SIDE RAILS RAISED X2, BED WHEELS LOCKED, BUSTOS IS HANGING BELOW BLADDER AND IS DRAINING YELLOW URINE, AND CALL LIGHT IS WITHIN REACH. WILL CONTINUE TO MONITOR.
[2018-11-07 07:26] LABS: Potassium 3.3 mmol/L (3.5-5.1)
[2018-11-07 07:38] LABS: Albumin 2.2 g/dL (3.4-5.0); BUN/Creatinine Ratio 22.9; Bilirubin, Total 0.5 mg/dL (0.2-1.0); Calcium 8.4 mg/dL (8.5-10.1); Total Protein 5.8 g/dL (6.4-8.2)
--- NOTE | 2018-11-07 08:30 | NUR ---
PAGED MD MORRIS REGARDING SODIUM AND POTASSIUM LEVELS. AWAITING CALL BACK
[2018-11-07 09:03] VITALS: BP 106/56
[2018-11-07] MEDS: FAMOTIDINE (10MG/ML) 2ML VL IV SCH ×2 (10:22→22:06)
[2018-11-07] MEDS: POTASSIUM EFFERVESENT TAB 25 MEQ PO SCH (10:23)
[2018-11-07] MEDS: AMIODARONE HCL 200 MG TAB PO SCH ×2 (10:27→22:07)
[2018-11-07] MEDS: METOLAZONE 5 MG TAB PO SCH (10:27)
[2018-11-07] MEDS: MEGESTROL ACETATE 20 MG TAB PO SCH ×2 (10:28→22:07)
[2018-11-07] MEDS: ASPirin-EC 81 mg tab PO SCH (10:28)
--- NOTE | 2018-11-07 10:54 | NUR ---
DR. MC AT BEDSIDE UPDATED MD ON PATIENT'S STATUS INCLUDING POTASSIUM AND SODIUM LEVELS, MD IS AWARE AND WILL PUT IN ORDERS FOR POTASSIUM AND WANTS AN ECHOCARDIOGRAM ORDERED. WILL FOLLOW THROUGH WITH ORDERS.
[2018-11-07] MEDS ORDERED: POTASSIUM EFFERVESENT TAB 25 MEQ PO ONE (12:00)
[2018-11-07] MEDS: B-COMPLEX W/ C & FOLIC ACID(NEPHROVITE TAB) PO SCH (12:24)
[2018-11-07] MEDS: SODIUM FERR GLUC 62.5MG/5ML 125 MG in SODIUM CHL 0.9% 100 ML IV SCH (12:24)
[2018-11-07 12:40] VITALS: BP 115/62
--- NOTE | 2018-11-07 13:00 | NUR ---
LASIX DRIP STILL RUNNING. CALLED PHARMACY FOR NEW BAG. AWAITING IV BAG
--- NOTE | 2018-11-07 14:40 | NUR ---
PATIENT IS BACK IN BED FROM SITTING IN CHAIR WITH ASSISTANCE FROM PHYSICAL THERAPY. PATIENT HAS NO S/S OF DISTRESS/SOB OR PAIN AT THIS TIME.
[2018-11-07] MEDS: FUROSEMIDE INJECTION 250 MG in D5W 5% 225 ML IV SCH (14:44)
--- NOTE | 2018-11-07 16:00 | NUR ---
ECHO BEING DONE AT THIS TIME.
[2018-11-07 17:00] VITALS: BP 123/55
--- NOTE | 2018-11-07 19:17 | NUR ---
Respiratory note: PT RECIEVED ON NC1L AT THIS TIME AWAKE AND ALERT. NO RESP DISTRESS NOTED. SPO2 97%, HR 83, RR 18. BS CLR T/O. NO PRN TX INDICATED AT THIS TIME.
--- NOTE | 2018-11-07 19:24 | NUR ---
CLOSING SHIFT NOTE ENDORSED CARE TO DUMPMAN ARCHANA HERNANDEZ. PATIENT HAS NO S/S OF DISTRESS/SOB OR PAIN AT THIS TIME.
--- NOTE | 2018-11-07 19:45 | NUR ---
OPENING SHIFT NOTE RECEIVED REPORT FROM DAYSHIFT RN. PATIENT LYING IN BED WATCHING TELEVISION. NO S/S OF DISTRESS OR SOB, NO PAIN NOTED OR REPORTED AT THIS TIME. PATIENT A/O X3, BEDREST, ON SPECIALTY MATTRESS. LASIX INFUSING TO LEFT IJ AT 10 MLS/HR. DOBUTAMINE INFUSING TO LEFT IJ AT 26.6 MLS/HR. BUSTOS CATHETER PRESENT AND DRAINING CLEAR, YELLOW URINE. BED LOCKED IN LOW POSITION, CALL LIGHT WITHIN REACH. WILL CONTINUE TO MONITOR PATIENT Q1HR AND PRN.
[2018-11-07 22:05] VITALS: BP 124/65
[2018-11-08] MEDS: InsuLIN REG 1unit/0.01ml Soln (100units/ml) SC SCH ×4 (05:37→23:42)
[2018-11-08] MEDS: ACCU-CHEK COMFORT CURVE STRIP VI SCH ×4 (05:37→23:42)
[2018-11-08] MEDS: PIPERACILLIN-TAZOB 2.25GM 50 ML IV SCH ×3 (05:37→21:06)
[2018-11-08] MEDS: DOBUTamine 1000MCG/ML 250 ML IV SCH ×2 (05:38→16:05)
[2018-11-08 05:39] VITALS: BP 133/59
[2018-11-08 05:46] LABS: Basophils # (auto) 0.1 uL; Basophils % (auto) 1.8 % (0.0-2.0); Eosinophils # (auto) 0.1 uL; Eosinophils % (auto) 1.7 % (0.0-7.0); Hematocrit 30.1 % (36.0-46.0); Hemoglobin 10.1 g/dL (12.2-16.2); Lymphocytes # (auto) 0.5 uL; Lymphocytes % (auto) 8.2 % (10.0-50.0); Mean Corpuscular Hemoglobin 28.4 pg (28.0-32.0); Mean Corpuscular Hgb Conc. 33.5 g/dL (32.0-36.0); Mean Corpuscular Volume 84.7 fL (80.0-100.0); Monocytes # (auto) 0.7 uL; Monocytes % (auto) 11.7 % (0.0-12.0); Neutrophils # (auto) 4.4 uL; Neutrophils % (auto) 76.6 % (37.0-80.0); Platelet Count (auto) 114 10^3/uL (140-450); Red Blood Cells 3.56 10^6/uL (4.0-5.20); Red Cell Distribution Width 18.3 % (11.8-14.3); White Blood Cell 5.8 10^3/uL (4.4-10.8)
[2018-11-08 06:02] LABS: Albumin 2.2 g/dL (3.4-5.0); BUN/Creatinine Ratio 22.5; Calcium 8.5 mg/dL (8.5-10.1); Potassium 3.7 mmol/L (3.5-5.1)
[2018-11-08 06:04] LABS: Magnesium 1.8 mg/dL (1.6-2.6); Uric Acid 9.3 mg/dL (2.6-6.0)
[2018-11-08 06:08] LABS: Bilirubin, Total 0.4 mg/dL (0.2-1.0); Total Protein 5.6 g/dL (6.4-8.2)
--- NOTE | 2018-11-08 07:20 | NUR ---
OPENING SHIFT NOTE ASSUMED CARE OF PATIENT FROM TRUCK HOPPER RN DAVID. PATIENT IS AWAKE AND ALERT X3 (PERSON, PLACE AND SITUATION). WILL CONTINUE TO REORIENT PATIENT TO TIME. INSTRUCTED PATIENT ON POC, PATIENT VERBALIZED UNDERSTANDING. BED IS IN LOWEST POSITION WITH SIDE RAILS RAISED X2, BED WHEELS LOCKED, BED ALARM ON, BUSTOS IS HANGING BELOW BLADDER AND IS DRAINING YELLOW URINE, AND CALL LIGHT IS WITHIN REACH. WILL CONTINUE TO MONITOR.
[2018-11-08 09:00] VITALS: BP 134/59
--- NOTE | 2018-11-08 10:20 | NUR ---
PT ASSESSED FOR PRN MEDNEB TX. NO RESPIRATORY DISTRESS NOTED AT THIS TIME. SPO2 97% ON 1L NC HR 86 RR 20 B/S DIMINISHED. PT AWARE TO HAVE RT PAGED IF THEY BECOME SOB.
[2018-11-08] MEDS: FUROSEMIDE INJECTION 250 MG in D5W 5% 225 ML IV SCH ×2 (10:45→16:15)
[2018-11-08] MEDS: POTASSIUM EFFERVESENT TAB 25 MEQ PO SCH (11:15)
[2018-11-08] MEDS: MEGESTROL ACETATE 20 MG TAB PO SCH ×2 (11:15→21:06)
[2018-11-08] MEDS: FAMOTIDINE (10MG/ML) 2ML VL IV SCH ×2 (11:15→21:05)
[2018-11-08] MEDS: B-COMPLEX W/ C & FOLIC ACID(NEPHROVITE TAB) PO SCH (11:16)
[2018-11-08] MEDS: AMIODARONE HCL 200 MG TAB PO SCH ×2 (11:16→21:06)
[2018-11-08] MEDS: ASPirin-EC 81 mg tab PO SCH (11:16)
[2018-11-08] MEDS: METOLAZONE 5 MG TAB PO SCH (11:19)
--- NOTE | 2018-11-08 11:30 | NUR ---
CENTRAL LINE DRESSING CHANGED ORDERED.
[2018-11-08] MEDS: SODIUM FERR GLUC 62.5MG/5ML 125 MG in SODIUM CHL 0.9% 100 ML IV SCH (12:29)
[2018-11-08 12:32] VITALS: BP 133/64
[2018-11-08] MEDS ORDERED: POTASSIUM EFFERVESENT TAB 25 MEQ PO ONE (15:00)
[2018-11-08 17:00] VITALS: BP 129/69
--- NOTE | 2018-11-08 17:00 | NUR ---
WOUND CARE ORDERED. PATIENT HAS NO S/S OF DISTRESS/SOB OR PAIN.
--- NOTE | 2018-11-08 19:07 | NUR ---
CLOSING SHIFT NOTE ENDORSED CARE TO PSYCHIATRIC ARNP ARCHANA HERNANDEZ. PATIENT HAS NO S/S OF DISTRESS/SOB OR PAIN AT THIS TIME.
--- NOTE | 2018-11-08 19:08 | NUR ---
Respiratory note: NO PRN TX GIVEN AT THIS TIME, NOT INDICATED. PT DENIES ANY SOB. SPO2 96% ON 1L NC, HR 83, RR 16. NO DISTRESS NOTED, PT AWARE TO CALL IF SHE BECOMES SOB.
[2018-11-08 21:48] VITALS: BP 136/55
[2018-11-09] MEDS: DOBUTamine 1000MCG/ML 250 ML IV SCH ×3 (01:32→21:24)
[2018-11-09 03:34] VITALS: BP 136/55
[2018-11-09 05:25] VITALS: BP 127/52
[2018-11-09] MEDS: InsuLIN REG 1unit/0.01ml Soln (100units/ml) SC SCH ×3 (05:40→17:43)
[2018-11-09] MEDS: ACCU-CHEK COMFORT CURVE STRIP VI SCH ×3 (05:40→17:44)
[2018-11-09] MEDS: PIPERACILLIN-TAZOB 2.25GM 50 ML IV SCH ×3 (05:40→22:25)
[2018-11-09] MEDS: AMIODARONE HCL 200 MG TAB PO SCH ×2 (08:55→22:26)
[2018-11-09] MEDS: ASPirin-EC 81 mg tab PO SCH (08:56)
[2018-11-09] MEDS: MEGESTROL ACETATE 20 MG TAB PO SCH ×2 (08:56→22:26)
[2018-11-09] MEDS: FAMOTIDINE (10MG/ML) 2ML VL IV SCH ×2 (08:56→22:26)
[2018-11-09] MEDS: METOLAZONE 5 MG TAB PO SCH (08:56)
[2018-11-09] MEDS: B-COMPLEX W/ C & FOLIC ACID(NEPHROVITE TAB) PO SCH (08:56)
[2018-11-09] MEDS: POTASSIUM EFFERVESENT TAB 25 MEQ PO SCH (08:57)
[2018-11-09 09:26] VITALS: BP 126/61
--- NOTE | 2018-11-09 09:30 | NUR ---
FAMILY PATIENT'S DAUGHTER AT BED SIDE
[2018-11-09] MEDS: SODIUM FERR GLUC 62.5MG/5ML 125 MG in SODIUM CHL 0.9% 100 ML IV SCH (11:47)
[2018-11-09] MEDS: IPRATROPIUM BROM 0.5 MG/2.5ML INH SOL NEB PRN (12:11)
[2018-11-09] MEDS: ALBUTEROL SULF 2.5 MG/0.5ML(0.5%) NEB SOLN NEB PRN (12:11)
--- NOTE | 2018-11-09 14:00 | NUR ---
ASSESSED PT FOR PRN MED NEB TX, PT SITTING ON CHAIR ON RA WITH SPO2 92%, HR 82 WITH CLEAR/DIMINISHED BS, RR 16. NO DISTRESS NOTED. NO WHEEZING. PT IS AWARE OF PRN MED NEB. WILL CONTINUE TO MONITOR.
--- NOTE | 2018-11-09 15:00 | NUR ---
OUT OF BED BY PHYSICAL THERAPY TO CHAIR AT BED SIDE, TOLERATED WELL.
--- NOTE | 2018-11-09 16:00 | NUR ---
PATIENT IS BACK TO HER ROOM, NO DISTRESS NOTED, CONTINUE MONITORING.
[2018-11-09 17:16] VITALS: BP 136/58
--- NOTE | 2018-11-09 18:05 | NUR ---
DR MORRIS IS HERE FOLLOWING UP , NO NEW ORDERS NOTED.
--- NOTE | 2018-11-09 18:43 | NUR ---
PT CONTINUE STABLE, CONTINUE MONITORING
[2018-11-09 21:30] VITALS: BP 121/57
[2018-11-10] MEDS: InsuLIN REG 1unit/0.01ml Soln (100units/ml) SC SCH ×5 (00:01→23:56)
[2018-11-10] MEDS: ACCU-CHEK COMFORT CURVE STRIP VI SCH ×5 (00:01→23:56)
[2018-11-10] MEDS: PIPERACILLIN-TAZOB 2.25GM 50 ML IV SCH ×3 (05:47→21:35)
[2018-11-10] MEDS: DOBUTamine 1000MCG/ML 250 ML IV SCH ×2 (06:31→19:53)
[2018-11-10 07:00] LABS: Albumin 2.2 g/dL (3.4-5.0); Calcium 8.8 mg/dL (8.5-10.1); Potassium 3.9 mmol/L (3.5-5.1)
[2018-11-10 07:04] LABS: Bilirubin, Total 0.4 mg/dL (0.2-1.0); Total Protein 5.6 g/dL (6.4-8.2)
[2018-11-10 09:00] VITALS: BP 121/50
[2018-11-10] MEDS: AMIODARONE HCL 200 MG TAB PO SCH ×2 (10:05→21:36)
[2018-11-10] MEDS: ASPirin-EC 81 mg tab PO SCH (10:05)
[2018-11-10] MEDS: MEGESTROL ACETATE 20 MG TAB PO SCH ×2 (10:05→21:36)
[2018-11-10] MEDS: B-COMPLEX W/ C & FOLIC ACID(NEPHROVITE TAB) PO SCH (10:05)
[2018-11-10] MEDS: METOLAZONE 5 MG TAB PO SCH (10:06)
[2018-11-10] MEDS: FAMOTIDINE (10MG/ML) 2ML VL IV SCH ×2 (10:06→21:35)
[2018-11-10] MEDS: POTASSIUM EFFERVESENT TAB 25 MEQ PO SCH (10:06)
--- NOTE | 2018-11-10 11:00 | NUR ---
Respiratory note: ASSESSED PT FOR PRN MEDNEB TX. HR 71, RR 16, POX 98% ON 1L NC. BREATH SOUNDS DIMINISHED THROUGHOUT. NO S/S OF RESPIRATORY DISTRESS. MEDNEB TX NOT INDICATED AT THIS TIME. ADVISED PT TO CALL FOR RT IF NEEDED.
[2018-11-10 13:00] VITALS: BP 119/61
[2018-11-10] MEDS: SODIUM FERR GLUC 62.5MG/5ML 125 MG in SODIUM CHL 0.9% 100 ML IV SCH (13:10)
[2018-11-10] MEDS: ONDANSETRON HCL 4 MG/2 ML VIAL IV PRN ×2 (13:39→21:35)
[2018-11-10 17:00] VITALS: BP 123/53
--- NOTE | 2018-11-10 19:23 | NUR ---
Opening Shift Note Assumed care of patient, awake and alert x4. No S/S of distress/SOB or pain. Meza is in place and hung below bladder. Dobutamine is infusing at 24.64mls/hr through the Left IJ. Instructed on POC and to call for assist PRN, will continue to monitor for changes Q1hr and PRN.
--- NOTE | 2018-11-10 21:20 | NUR ---
Patient has a small BM. Hygiene care provided, new linens in place. Cleaned the sacral area per wound care instructions, new optifoam and Z-guard applied. Patient was placed on her left side. HOB raised to 45 degrees per patient request. No complaints of pain. Will continue to round and monitor as needed.
[2018-11-11 05:00] VITALS: BP 121/50
[2018-11-11] MEDS: PIPERACILLIN-TAZOB 2.25GM 50 ML IV SCH ×3 (05:46→22:33)
[2018-11-11] MEDS: ACCU-CHEK COMFORT CURVE STRIP VI SCH ×3 (05:46→18:25)
[2018-11-11] MEDS: InsuLIN REG 1unit/0.01ml Soln (100units/ml) SC SCH ×3 (05:46→18:25)
[2018-11-11 06:31] LABS: Calcium 8.3 mg/dL (8.5-10.1); Potassium 3.4 mmol/L (3.5-5.1)
[2018-11-11 06:34] LABS: BUN/Creatinine Ratio 20.3; Bilirubin, Total 0.5 mg/dL (0.2-1.0); Total Protein 5.3 g/dL (6.4-8.2)
[2018-11-11] MEDS: DOBUTamine 1000MCG/ML 250 ML IV SCH ×3 (06:43→18:25)
--- NOTE | 2018-11-11 07:25 | NUR ---
Endorsed care to raul Ma.
--- NOTE | 2018-11-11 07:30 | NUR ---
Opening Shift Note Assumed care of patient, awake and alert X 3-4, sitting up in bed watching television. No S/S of distress/SOB, no pain noted or reported at this time. Respirations are even and unlabored on 1L NC. Updated pt on POC and instructed to call for assistance as needed, pt. verbalized understanding. Bed locked in lowest position, side rails up x2, call light within reach, bed alarm on. Fall precaution in place. Will continue to monitor for changes Q1hr and PRN.
[2018-11-11 08:00] VITALS: BP 126/49
[2018-11-11] MEDS: BUMETANIDE 2.5mg/10ml (0.25 mg/ml) INJ IV SCH ×2 (08:46→18:25)
[2018-11-11] MEDS: POTASSIUM EFFERVESENT TAB 25 MEQ PO SCH (10:00)
[2018-11-11] MEDS: ONDANSETRON HCL 4 MG/2 ML VIAL IV PRN (10:08)
[2018-11-11] MEDS: FAMOTIDINE (10MG/ML) 2ML VL IV SCH ×2 (10:10→22:32)
[2018-11-11] MEDS: B-COMPLEX W/ C & FOLIC ACID(NEPHROVITE TAB) PO SCH (10:11)
[2018-11-11] MEDS: MEGESTROL ACETATE 20 MG TAB PO SCH ×2 (10:11→22:33)
[2018-11-11] MEDS: METOLAZONE 5 MG TAB PO SCH (10:12)
[2018-11-11] MEDS: AMIODARONE HCL 200 MG TAB PO SCH ×2 (10:12→22:33)
[2018-11-11] MEDS: ASPirin-EC 81 mg tab PO SCH (10:12)
--- NOTE | 2018-11-11 10:18 | NUR ---
Respiratory note: ASSESSED PT FOR PRN MEDNEB TX. HR 96, RR 14, POX 95% ON 1L NC. BREATH SOUNDS DIMINISHED THROUGHOUT. NO S/S OF RESPIRATORY DISTRESS. MEDNEB TX NOT INDICATED. WROTE RT NAME AND PAGER NUMBER ON WHITEBOARD, ADVISED PT TO CALL FOR RT IF NEEDED.
--- NOTE | 2018-11-11 11:38 | NUR ---
Nutrition Follow-up Notes Wt.: 88.6 kg Pt's successfully extubated sleeping with no family by bedside. per records pt with resolving metabolic acidosis. pt with JORDAN on CKD. pt with no distress noted per nursing. pt is currently on CCHO 60 gm pureed diet with inadequate PO of < 50% x 5 per RN doc Est. Needs BW [id number] kcal (25-30 kcal/kgBW), 60-75 gms pro (0.8-1.0 gms/kgBW r/t elev RFT severe hypoalb wounds). Will continue to monitor pertinent labs and reassess nutrient need prn Labs: BUN 68 H, CREAT 3.35 H, GLU 181 H, CA 8.3 L, ALB 2.0 L. Skin: Papa scale 13, mod risk, pt's with pressure ulcer sacrum per RN doc. refer to notes for details. pt on nephrovite GI: Pt had 1 BM today per rn pacu. PES: Altered nutrition related lab values r/t acute/chronic medical condition aeb elev RFT severe hypoalb, hypocalcemia, hyperglycemia, elev A1C Resolved: Impaired swallowing r/t current medical condition aeb pt`s intubated sedated with order of NPO Will continue to monitor PO intake, skin status, pertinent labs and weight trend. F/u in 3-5 days. Rec.: 1.) Consider renal specific 70 gm protein 2 gm na along with current diet if RFT continues to be elev. 2) refer to CDE on DC 3)consider prostat 1 packet bid as RFT improve 4) consider mVI.C bid 5) continue current plan of care
[2018-11-11 12:00] VITALS: BP 123/51
[2018-11-11 16:00] VITALS: BP 130/52
[2018-11-11] MEDS ORDERED: POTASSIUM EFFERVESENT TAB 25 MEQ PO ONE (16:00)
--- NOTE | 2018-11-11 17:31 | NUR ---
Patient is going to [facility] bed 37A, accepting MD is Tavia. [facility] on will call to transport after wound vac has been delivered to pt. room between now and 10pm. Primary RN to call [facility] when pt. is ready for transport this evening, # Addendum: 11/11/18 at 1734 by Francesca Scruggs RN INCORRECT PATIENT
--- NOTE | 2018-11-11 19:27 | NUR ---
Respiratory note: ASSESSED PT FOR PRN MED NEB AT THIS TIME, PT DENIES SOB AT THIS TIME, NO RESP DISTRESS NOTED, NO TX INDICATED, PULSE OX 99% ON 1LNC, HR 83, RR 18, BILATERAL BS DIMINISHED
--- NOTE | 2018-11-11 19:30 | NUR ---
Opening Shift Note Assumed care of patient, awake and alert x4. No S/S of distress/SOB or pain. Meza is in place and hung below bladder draining yellow urine. Instructed on POC and to call for assist PRN, will continue to monitor for changes Q1hr and PRN. Call light is within reach, side rails up x2, bed is in lowest position.
[2018-11-11 20:39] VITALS: BP 130/52
[2018-11-11 21:37] VITALS: BP 139/60
[2018-11-12] MEDS: InsuLIN REG 1unit/0.01ml Soln (100units/ml) SC SCH ×4 (00:20→17:58)
[2018-11-12] MEDS: ACCU-CHEK COMFORT CURVE STRIP VI SCH ×4 (00:20→17:56)
[2018-11-12] MEDS: DOBUTamine 1000MCG/ML 250 ML IV SCH ×3 (03:11→23:34)
[2018-11-12 05:00] VITALS: BP 120/54
--- NOTE | 2018-11-12 05:50 | NUR ---
Respiratory note: ROUTINE PRN MN TX. HR 77, RR 18, POX 95% ON RA, BREATH SOUNDS ARE CLEAR. NO SOB OR DISTRESS NOTED. PT WAS NOTIFY TO HAVE RN PAGE RT FOR TX.
[2018-11-12] MEDS: PIPERACILLIN-TAZOB 2.25GM 50 ML IV SCH ×3 (06:01→22:07)
[2018-11-12] MEDS: BUMETANIDE 2.5mg/10ml (0.25 mg/ml) INJ IV SCH ×2 (06:01→17:56)
[2018-11-12 07:08] LABS: Albumin 2.3 g/dL (3.4-5.0); Calcium 8.3 mg/dL (8.5-10.1); Potassium 3.2 mmol/L (3.5-5.1)
[2018-11-12 07:11] LABS: BUN/Creatinine Ratio 18.1
[2018-11-12 07:15] LABS: Bilirubin, Total 0.4 mg/dL (0.2-1.0); Total Protein 5.6 g/dL (6.4-8.2)
[2018-11-12 09:00] VITALS: BP 113/50
[2018-11-12] MEDS: MEGESTROL ACETATE 20 MG TAB PO SCH ×2 (10:14→22:07)
[2018-11-12] MEDS: AMIODARONE HCL 200 MG TAB PO SCH ×2 (10:14→22:07)
[2018-11-12] MEDS: B-COMPLEX W/ C & FOLIC ACID(NEPHROVITE TAB) PO SCH (10:14)
[2018-11-12] MEDS: FAMOTIDINE (10MG/ML) 2ML VL IV SCH ×2 (10:14→22:07)
[2018-11-12] MEDS: POTASSIUM EFFERVESENT TAB 25 MEQ PO SCH (10:15)
[2018-11-12] MEDS: ASPirin-EC 81 mg tab PO SCH (10:15)
[2018-11-12] MEDS: METOLAZONE 5 MG TAB PO SCH (10:16)
--- NOTE | 2018-11-12 12:31 | NUR ---
Pt reports having abdominal pain and is requesting for a breathing treatment Pt worked on exercises while lying in supine Pt worked on gluteal squeezes, ankle pumps, heel slides and hip abd and add x 10 reps Addendum: 11/12/18 at 1233 by Divine Pena PT Amended: Links added.
[2018-11-12] MEDS: ONDANSETRON HCL 4 MG/2 ML VIAL IV PRN (12:44)
[2018-11-12 13:00] VITALS: BP 136/55
--- NOTE | 2018-11-12 14:37 | NUR ---
Endorsed care to Nithya MAGAÑA.
--- NOTE | 2018-11-12 14:55 | NUR ---
RECEIVED PATIENT FROM DAY SHIFT RN. PATIENT RESTING IN BED. NO S/S OF DISTRESS NOTED. DENIED PAIN FOR NOW. LEFT ARM SWELLING NOTED AND ELEVATED WITH PILLOW. BUSTOS CATH IN PLACE DRAINING GRAVITY. DOBUTAMINE DRIP RUNNING WELL. ORDERED. POC INSTRUCTED AND ENCOURAGED PATIENT TO CALL FOR FLOORING MECHANIC IF NEEDED. SPECIAL MATTRESS BED IN LOWEST POSITION WITH SIDE RAILS UP X 2. CALL COTTRELL WITHIN REACH. ALARM ON. CONTINUE TO MONITOR FOR CHANGES Q1H AND PRN.
[2018-11-12 17:00] VITALS: BP 132/58
--- NOTE | 2018-11-12 18:24 | NUR ---
ACCU-CHECK, BS 263. INSULIN GIVEN ORDERED. CONTINUE TO MONITOR.
--- NOTE | 2018-11-12 18:38 | NUR ---
PATIENT'S DAUGHTER MADIHA CALLED, PASSWORD CONFIRMED. UPDATED ON PATIENT'S SITUATION. CONTINUE TO MONITOR.
--- NOTE | 2018-11-12 19:37 | NUR ---
ASSISTED PATIENT FOR DINNER. PATIENT SWALLOWED WELL, NO S/S OF ASPIRATION NOTED. CONTINUE TO MONITOR.
--- NOTE | 2018-11-12 19:47 | NUR ---
Respiratory note: ASSESSED PT FOR PRN MED NEB AT THIS TIME, PT DENIES SOB AT THIS TIME, NO RESP DISTRESS NOTED, NO TX INDICATED, PULSE OX 98% ON 1LNC, HR 75, RR 18, BILATERAL BS DIMINISHED.
--- NOTE | 2018-11-12 22:08 | NUR ---
PATIENT SWALLOWED ORAL MEDICATION WELL WITH APPLE SAUCE. NO S/S OF ASPIRATION NOTED. CONTINUE TO MONITOR.
[2018-11-13] MEDS: ACCU-CHEK COMFORT CURVE STRIP VI SCH ×4 (00:30→16:34)
[2018-11-13] MEDS: InsuLIN REG 1unit/0.01ml Soln (100units/ml) SC SCH ×4 (00:31→17:11)
--- NOTE | 2018-11-13 00:31 | NUR ---
REPOSITIONED PATIENT. PATIENT TOLERATED WELL. ACCU-CHECK, BS 246. INSULIN GIVEN ORDERED. CONTINUE TO MONITOR.
[2018-11-13 00:40] VITALS: BP 117/46
--- NOTE | 2018-11-13 02:30 | NUR ---
REPOSITIONED PATIENT. PATIENT TOLERATED WELL. CONTINUE CARE.
--- NOTE | 2018-11-13 04:08 | NUR ---
PATIENT SLEEPING. NO S/S OF DISTRESS NOTED. CONTINUE TO MONITOR.
--- NOTE | 2018-11-13 05:08 | NUR ---
PATIENT HAD BM. CLEANED PATIENT. PARTIAL LINEN CHANGED. REPOSITIONED PATIENT TO COMFORT. PATIENT TOLERATED WELL. CONTINUE TO MONITOR.
[2018-11-13 05:31] VITALS: BP 54/46
[2018-11-13] MEDS: BUMETANIDE 2.5mg/10ml (0.25 mg/ml) INJ IV SCH ×2 (06:06→17:13)
[2018-11-13] MEDS: PIPERACILLIN-TAZOB 2.25GM 50 ML IV SCH (06:07)
--- NOTE | 2018-11-13 07:30 | NUR ---
Morning note patient resting in bed, eyes closed, with even and unlabored respirations, no distress noted. Fall precautions in place with bed in lowest locked position, call light within reach. Will continue to monitor q1hr & PRN.
--- NOTE | 2018-11-13 07:44 | NUR ---
Respiratory note: PT AWAKE AND ALERT. NO RESPIRATORY DISTRESS NOTED. SPO2 97% ON 1 L NC, HR 70, RR 16, BS CLEAR T/O. PRN MEDNEB TX NOT INDICATED AT THIS TIME. PT INFORMED TO PUSH CALL BUTTON IF INCREASED WOB, SOB, OR WHEEZING OCCUR.
[2018-11-13 08:19] LABS: Basophils # (auto) 0.1 uL; Basophils % (auto) 0.8 % (0.0-2.0); Eosinophils # (auto) 0.2 uL; Eosinophils % (auto) 2.2 % (0.0-7.0); Hematocrit 28.4 % (36.0-46.0); Hemoglobin 9.6 g/dL (12.2-16.2); Lymphocytes # (auto) 0.6 uL; Lymphocytes % (auto) 7.9 % (10.0-50.0); Mean Corpuscular Hemoglobin 28.6 pg (28.0-32.0); Mean Corpuscular Hgb Conc. 33.7 g/dL (32.0-36.0); Monocytes # (auto) 0.6 uL; Monocytes % (auto) 9.1 % (0.0-12.0); Neutrophils # (auto) 5.7 uL; Nucleated Red Blood Cells % 0.1 %; Platelet Count (auto) 112 10^3/uL (140-450); Red Blood Cells 3.34 10^6/uL (4.0-5.20); Red Cell Distribution Width 18.5 % (11.8-14.3); White Blood Cell 7.1 10^3/uL (4.4-10.8)
[2018-11-13 08:39] LABS: BUN/Creatinine Ratio 18.4; Calcium 8.3 mg/dL (8.5-10.1)
[2018-11-13 09:00] VITALS: BP 127/49
[2018-11-13] MEDS: DOBUTamine 1000MCG/ML 250 ML IV SCH (09:43)
[2018-11-13] MEDS: MEGESTROL ACETATE 20 MG TAB PO SCH ×2 (09:53→22:22)
[2018-11-13] MEDS: FAMOTIDINE (10MG/ML) 2ML VL IV SCH ×2 (09:53→22:21)
[2018-11-13] MEDS: METOLAZONE 5 MG TAB PO SCH (09:54)
[2018-11-13] MEDS: AMIODARONE HCL 200 MG TAB PO SCH ×2 (09:54→22:21)
[2018-11-13] MEDS: ASPirin-EC 81 mg tab PO SCH (09:54)
[2018-11-13] MEDS: B-COMPLEX W/ C & FOLIC ACID(NEPHROVITE TAB) PO SCH (09:55)
[2018-11-13] MEDS: POTASSIUM EFFERVESENT TAB 25 MEQ PO SCH ×2 (09:55→11:41)
--- NOTE | 2018-11-13 10:28 | NUR ---
Notified MD - RE: potassium; loose stool Notified Dr. Boland of current potassium level and that patient does not want to drink the ordered potassium replacement. MD verbalized understanding. Orders received and read back to verify. Notified Dr. Boland that patient is having liquid diarrhea. MD verbalized understanding. Orders received and read back to verify.
[2018-11-13] MEDS: CHOLESTYRAMINE 4 GM POWDER PO SCH ×2 (12:02→22:46)
[2018-11-13] MEDS: metroNIDAZOLE 500 MG TAB PO SCH ×2 (12:02→17:11)
[2018-11-13] MEDS: POTASSIUM CHL 20MEQ/100ML 100 ML IV SCH ×2 (12:02→13:47)
[2018-11-13 13:07] VITALS: BP 128/58
--- NOTE | 2018-11-13 13:49 | NUR ---
Patient resting in bed with even and unlabored respirations call light within reach. Will continue to monitor q1hr & PRN.
[2018-11-13 16:55] VITALS: BP 132/56
[2018-11-13] MEDS: ONDANSETRON HCL 4 MG/2 ML VIAL IV PRN (17:32)
--- NOTE | 2018-11-13 17:48 | NUR ---
Episode of vomiting Patient stated "My stomach hurts. I'm going to be sick." Patient had episode of vomiting. 100ml of liquid, no blood noted. Strict aspiration precautions in place with suctioning set up at bedside for safety. Anti-nausea medication administered per MD's order. Notified Dr. Boland. Orders received and read back to verify.
--- NOTE | 2018-11-13 17:51 | NUR ---
Paged RT to notify of ABG order per MD's order
--- NOTE | 2018-11-13 17:52 | NUR ---
Called laboratory to notify of STAT orders per MD's order
--- NOTE | 2018-11-13 18:02 | NUR ---
RT was at bedside
--- NOTE | 2018-11-13 18:03 | NUR ---
PT SEEN FOR ABG. PT ON 1L NC, BS CLEAR AND DIMINISHED. SPO2 95%, PT VOMITING. PRN NEB TX NOT GIVEN AT THIS TIME.
--- NOTE | 2018-11-13 18:04 | NUR ---
Called radiology to notify of STAT chest x-ray order per MD spoke to radiologist shahriar who verbalized understanding.
--- NOTE | 2018-11-13 18:14 | NUR ---
Notified Dr. Boland of ABG results Orders received and read back to verify.
--- NOTE | 2018-11-13 18:18 | NUR ---
Marksmanship Instructor at bedside
--- NOTE | 2018-11-13 18:19 | NUR ---
behavioral technician at bedside Gorge, radiology practitioner assistant, at bedside.
[2018-11-13] MEDS ORDERED: SODIUM CHLORIDE 0.9% 500 ML IV ONE (18:30)
--- NOTE | 2018-11-13 19:06 | NUR ---
Closing note; care endorsed to ARCHANA Barriga Patient resting in bed with even and unlabored respirations, no distress noted. Patient in high fowlers position. Patient continues to have c/o pressure in the chest, denies pain. Patient continues to report nausea, MD aware. Dr. Boland has been notified of chest x-ray results. Most recent STAT labs pending. Instructed ARCHANA Barriga, to notify Dr. Boland once results are posted. Nithya verbalized understanding. Suctioning set up at bedside for safety. Patient on speciality bed per MD's order. Fall precautions in place with bed in lowest locked position with call light within reach.
[2018-11-13 19:08] LABS: Basophils # (auto) 0 uL; Basophils % (auto) 0.7 % (0.0-2.0); Eosinophils # (auto) 0.1 uL; Eosinophils % (auto) 1.6 % (0.0-7.0); Hemoglobin 9.4 g/dL (12.2-16.2); Lymphocytes # (auto) 0.4 uL; Lymphocytes % (auto) 6.4 % (10.0-50.0); Mean Corpuscular Hemoglobin 28.7 pg (28.0-32.0); Mean Corpuscular Hgb Conc. 33.7 g/dL (32.0-36.0); Mean Corpuscular Volume 85.2 fL (80.0-100.0); Monocytes # (auto) 0.5 uL; Neutrophils # (auto) 5.3 uL; Neutrophils % (auto) 83.3 % (37.0-80.0); Platelet Count (auto) 149 10^3/uL (140-450); Red Blood Cells 3.28 10^6/uL (4.0-5.20); Red Cell Distribution Width 18.9 % (11.8-14.3); White Blood Cell 6.4 10^3/uL (4.4-10.8)
[2018-11-13 19:30] LABS: Calcium 8.4 mg/dL (8.5-10.1); Potassium 3.8 mmol/L (3.5-5.1)
--- NOTE | 2018-11-13 19:30 | NUR ---
RECEIVED PATIENT FROM DAY SHIFT RN. PATIENT RESTING IN BED IN HIGH FOWLERS POSITION. NO S/S OF DISTRESS NOTED. C/O PRESSURE IN THE CHEST, MD MORRIS AWARE, STILL PENDING ON THE LAB RESULTS. WILL NOTIFIED MD LATER WHEN THOSE RESULTS OUT. PATIENT DENIED CHEST PAIN AND ANY OTHER PAIN. BOTH ARMS SWOLLEN AND ELEVATED WITH PILLOW. BUSTOS CATH IN PLACE DRAINING GRAVITY. POC INSTRUCTED AND ENCOURAGED PATIENT TO CALL FOR PRESCHOOL DIRECTOR IF NEEDED. SPECIAL MATTRESS BED IN LOWEST POSITION WITH SIDE RAILS UP X 2. CALL COTTRELL WITHIN REACH. ALARM ON. CONTINUE TO MONITOR FOR CHANGES Q1H AND PRN.
[2018-11-13 19:41] LABS: BUN/Creatinine Ratio 17.6
--- NOTE | 2018-11-13 20:15 | NUR ---
ALL LAB RESULTS OUT AND SENT TO MD MORRIS THROUGH HIS CELL PHONE. NO NEW ORDER RECEIVED. CONTINUE TO MONITOR.
[2018-11-13 21:42] VITALS: BP 122/62
--- NOTE | 2018-11-13 22:47 | NUR ---
ORAL MEDICATION GIVEN ORDERED. PATIENT SWALLOWED WELL WITH APPLE SAUCE. REPOSITIONED PATIENT. PATIENT TOLERATED WELL. CONTINUE CARE.
[2018-11-14] MEDS: metroNIDAZOLE 500 MG TAB PO SCH ×5 (00:12→23:45)
[2018-11-14] MEDS: ACCU-CHEK COMFORT CURVE STRIP VI SCH ×5 (00:12→23:46)
[2018-11-14] MEDS: InsuLIN REG 1unit/0.01ml Soln (100units/ml) SC SCH ×5 (00:12→23:45)
--- NOTE | 2018-11-14 00:12 | NUR ---
ACCU-CHECK, BS 211. INSULIN GIVEN ORDERED. PATIENT SWALLOWED ORAL MEDICATION WELL WITH APPLE SAUCE. CONTINUE TO MONITOR.
--- NOTE | 2018-11-14 02:35 | NUR ---
REPOSITIONED PATIENT. PATIENT TOLERATED WELL. CONTINUE CARE.
--- NOTE | 2018-11-14 04:40 | NUR ---
PATIENT HAD BM. CLEANED PATIENT. PARTIAL LINEN CHANGED. REPOSITIONED PATIENT TO COMFORT. DRESSING CHANGED ON SACRUM AREA. PATIENT TOLERATED WELL. CONTINUE TO MONITOR.
[2018-11-14 05:06] VITALS: BP 125/62
--- NOTE | 2018-11-14 05:45 | NUR ---
Respiratory note: ROUTINE PRN MN TX CHECK. HR 65, RR 20, POX 98% ON 1L/M NC, BREATH SOUNDS ARE CLEAR. NO SOB OR DISTRESS NOTED. PT WAS NOTIFY TO HAVE RT PAGE FOR MN TX.
--- NOTE | 2018-11-14 06:20 | NUR ---
ORAL MEDICATION GIVEN ORDERED. PATIENT SWALLOWED WELL WITH APPLE SAUCE. ACCU-CHECK, BS 161. INSULIN GIVEN ORDERED. CONTINUE CARE.
--- NOTE | 2018-11-14 07:15 | NUR ---
OPENING SHIFT NOTE Assumed care of patient, awake and alert. No S/S of distress/SOB or pain. Instructed on POC and to call for assist PRN, will continue to monitor for changes Q1hr and PRN.
[2018-11-14 09:00] VITALS: BP 129/63
[2018-11-14] MEDS: FAMOTIDINE (10MG/ML) 2ML VL IV SCH ×2 (11:10→21:31)
[2018-11-14] MEDS: METOLAZONE 5 MG TAB PO SCH (11:12)
[2018-11-14] MEDS: AMIODARONE HCL 200 MG TAB PO SCH ×2 (11:12→21:32)
[2018-11-14] MEDS: ASPirin-EC 81 mg tab PO SCH (11:12)
[2018-11-14] MEDS: MEGESTROL ACETATE 20 MG TAB PO SCH ×2 (11:13→21:32)
[2018-11-14] MEDS: B-COMPLEX W/ C & FOLIC ACID(NEPHROVITE TAB) PO SCH (11:13)
[2018-11-14] MEDS: POTASSIUM EFFERVESENT TAB 25 MEQ PO SCH (11:13)
[2018-11-14] MEDS: CHOLESTYRAMINE 4 GM POWDER PO SCH ×2 (11:13→22:57)
[2018-11-14] MEDS ORDERED: FUROSEMIDE 100 MG/10ML VIAL IV ONE (12:45)
[2018-11-14 13:32] VITALS: BP 120/50
[2018-11-14 17:00] VITALS: BP 115/55
[2018-11-14 17:58] LABS: Calcium 8.6 mg/dL (8.5-10.1); Potassium 3.9 mmol/L (3.5-5.1)
--- NOTE | 2018-11-14 19:00 | NUR ---
Opening Shift Note Assumed care of patient, awake and alert. No S/S of distress/SOB or pain. Instructed on POC and to call for assist PRN, will continue to monitor for changes Q1hr and PRN.
[2018-11-14 23:00] VITALS: BP 125/62
[2018-11-15 01:06] VITALS: BP 125/62
[2018-11-15] MEDS: ACCU-CHEK COMFORT CURVE STRIP VI SCH ×3 (05:32→18:38)
[2018-11-15] MEDS: InsuLIN REG 1unit/0.01ml Soln (100units/ml) SC SCH ×3 (05:32→18:44)
[2018-11-15] MEDS: metroNIDAZOLE 500 MG TAB PO SCH ×3 (05:32→18:38)
[2018-11-15 06:51] LABS: Potassium 3.7 mmol/L (3.5-5.1)
[2018-11-15 06:57] LABS: BUN/Creatinine Ratio 18.6; Calcium 8.6 mg/dL (8.5-10.1)
--- NOTE | 2018-11-15 08:20 | NUR ---
Respiratory note: PRN MED NEB TX NOT INDICATED. HR 63,RR 14, SPO2 95% ON 1L NC, BS CLEAR. NO SIGNS OR SYMPTOMS OF RESPIRATORY DISTRESS NOTED. PT INFORMED TO HIT CALL BUTTON IF FEELING SOB OR WHEEZING.
[2018-11-15 09:00] VITALS: BP 117/60
[2018-11-15] MEDS: MEGESTROL ACETATE 20 MG TAB PO SCH ×2 (10:25→22:02)
[2018-11-15] MEDS: B-COMPLEX W/ C & FOLIC ACID(NEPHROVITE TAB) PO SCH (10:25)
[2018-11-15] MEDS: FAMOTIDINE (10MG/ML) 2ML VL IV SCH ×2 (10:26→22:01)
[2018-11-15] MEDS: AMIODARONE HCL 200 MG TAB PO SCH ×2 (10:26→22:02)
[2018-11-15] MEDS: ASPirin-EC 81 mg tab PO SCH (10:26)
[2018-11-15] MEDS: POTASSIUM EFFERVESENT TAB 25 MEQ PO SCH (10:27)
[2018-11-15] MEDS: CHOLESTYRAMINE 4 GM POWDER PO SCH ×2 (11:00→22:36)
[2018-11-15 13:18] VITALS: BP 135/65
[2018-11-15 16:51] VITALS: BP 122/66
--- NOTE | 2018-11-15 19:00 | NUR ---
PT CHECKED FOR PRN TX. PT IS RESTING WITH NO ACUTE DISTRESS NOTED. TX IS NOT INDICATED. HR 64 RR 18 POX 95% B/S CLEAR BUT DECREASED.
[2018-11-15 21:54] VITALS: BP 127/59
[2018-11-16] MEDS: InsuLIN REG 1unit/0.01ml Soln (100units/ml) SC SCH ×4 (00:22→18:05)
[2018-11-16] MEDS: metroNIDAZOLE 500 MG TAB PO SCH ×4 (00:22→18:05)
[2018-11-16] MEDS: ACCU-CHEK COMFORT CURVE STRIP VI SCH ×4 (00:22→18:06)
[2018-11-16 05:00] VITALS: BP 121/59
[2018-11-16 08:16] LABS: BUN/Creatinine Ratio 20.5; Calcium 8.5 mg/dL (8.5-10.1)
--- NOTE | 2018-11-16 08:20 | NUR ---
Opening Shift Note Assumed care of patient, resting in bed with eyes closed, respirations even and unlabored. No S/S of distress/SOB or pain. Instructed on POC and to call for assist PRN, will continue to monitor for changes Q1hr and PRN.
[2018-11-16 09:00] VITALS: BP 119/60
--- NOTE | 2018-11-16 10:40 | NUR ---
Respiratory note: PT ASSESSED FOR PRN MED NEB TX. NO SOB NOTED. PT APPEARS TO BE BREATHING COMFORTABLY ON RA WITH A POX OF 94%, HR 62, RR 16. B/S ARE CLEAR AND DIMINISHED THROUGHOUT.
[2018-11-16] MEDS: FAMOTIDINE (10MG/ML) 2ML VL IV SCH ×2 (11:15→22:03)
--- NOTE | 2018-11-16 11:15 | NUR ---
OUT OF BED Patient sitting in bedside chair, tolerating well. Patient very drowsy but easily aroused.
[2018-11-16] MEDS: ASPirin-EC 81 mg tab PO SCH (11:16)
[2018-11-16] MEDS: POTASSIUM EFFERVESENT TAB 25 MEQ PO SCH (11:17)
[2018-11-16] MEDS: MEGESTROL ACETATE 20 MG TAB PO SCH ×2 (11:18→22:03)
[2018-11-16] MEDS: B-COMPLEX W/ C & FOLIC ACID(NEPHROVITE TAB) PO SCH (11:18)
[2018-11-16] MEDS: CHOLESTYRAMINE 4 GM POWDER PO SCH ×2 (11:18→22:33)
[2018-11-16] MEDS: AMIODARONE HCL 200 MG TAB PO SCH ×2 (11:33→22:02)
--- NOTE | 2018-11-16 12:46 | NUR ---
RETURNED TO BED Patient returned to bed with assist of PT. Bed in low position, call light in reach.
[2018-11-16 13:00] VITALS: BP 117/57
[2018-11-16 16:43] VITALS: BP 124/63
--- NOTE | 2018-11-16 18:31 | NUR ---
Per consult for SNF. Per Ghazal pt requested [facility] Contacted [facility] Ph: ( [phone]) Fax: ) faxed medical records. Florentin Peguero from [facility] Pt has been accepted and she will follow up tomorrow with room number accepting MD Dr. Loco. Addendum: 11/16/18 at 1833 by TALI OLMOS Amended: Links added.
--- NOTE | 2018-11-16 19:10 | NUR ---
Respiratory note: ASSESSMENT FOR PRN MED NEB TX. PT PRESENTING NO RESPIRATORY DISTRESS AT THIS TIME. HR 68, SPO2 99% ON 1L NC (24% FIO2), RR 20, BS CLEAR/DIMINISHED. MED NEB TX NOT INDICATED AT THIS TIME. WILL CONTINUE TO MONITOR.
[2018-11-16 22:00] VITALS: BP 144/71
[2018-11-17] MEDS: metroNIDAZOLE 500 MG TAB PO SCH ×2 (00:24→05:55)
[2018-11-17] MEDS: ACCU-CHEK COMFORT CURVE STRIP VI SCH ×5 (00:39→23:58)
[2018-11-17] MEDS: InsuLIN REG 1unit/0.01ml Soln (100units/ml) SC SCH ×5 (00:40→23:55)
[2018-11-17 05:00] VITALS: BP 160/73
[2018-11-17 06:54] LABS: Calcium 8.8 mg/dL (8.5-10.1); Potassium 4.6 mmol/L (3.5-5.1)
[2018-11-17 09:00] VITALS: BP 133/58
[2018-11-17 09:10] LABS: Basophils # (auto) 0.1 uL; Basophils % (auto) 1.7 % (0.0-2.0); Eosinophils # (auto) 0.1 uL; Eosinophils % (auto) 1.8 % (0.0-7.0); Hematocrit 33.8 % (36.0-46.0); Hemoglobin 11.1 g/dL (12.2-16.2); Lymphocytes # (auto) 0.8 uL; Lymphocytes % (auto) 11.6 % (10.0-50.0); Mean Corpuscular Hemoglobin 28.3 pg (28.0-32.0); Mean Corpuscular Hgb Conc. 32.7 g/dL (32.0-36.0); Mean Corpuscular Volume 86.6 fL (80.0-100.0); Monocytes # (auto) 0.7 uL; Monocytes % (auto) 10.5 % (0.0-12.0); Neutrophils % (auto) 74.4 % (37.0-80.0); Nucleated Red Blood Cells % 0.1 %; Platelet Count (auto) 114 10^3/uL (140-450); Red Blood Cells 3.91 10^6/uL (4.0-5.20); Red Cell Distribution Width 19.8 % (11.8-14.3); White Blood Cell 6.7 10^3/uL (4.4-10.8)
[2018-11-17 09:19] LABS: Albumin 2.3 g/dL (3.4-5.0); Bilirubin, Direct 0.2 mg/dL (0-0.2)
[2018-11-17 09:21] LABS: Bilirubin, Total 0.5 mg/dL (0.2-1.0); Total Protein 6.2 g/dL (6.4-8.2)
--- NOTE | 2018-11-17 11:00 | NUR ---
WOUND CARE NOTE: IN TO SEE PATIENT AT THIS TIME FOR WOUND RE-EVALUATION. PATIENT HAS CURRENT SANYA SCORE OF 15. PATIENT CAN ASSIST WITH HER TURNING/REPOSITIONING. PATIENT CONTINUES TO REST ON SPECIALTY AIR MATTRESS. PATIENT'S SACRAL DTI'S CONTINUE TO EVOLVE, NOW OPEN TO PARTIAL THICKNESS WOUNDS NEW WOUND MEASUREMENTS AND PHOTOGRAPHS TAKEN AT THIS TIME FOR REFERENCE. APPLIED THERAHONEY AND OPTIFOAM GENTLE DRESSINGS TO BOTH UPPER AND LOWER SACRAL WOUNDS. RECOMMEND: CHANGE FROM MOISTURE BARRIER CREAM BID TO DAILY/PRN DRESSING CHANGES WITH THERAHONEY, OPTIFOAM GENTLE DRESSINGS, CONTINUED MONITORING BY WOUND CARE TEAM. Addendum: 11/17/18 at 1628 by Samanta Minor RN Amended: Links added.
[2018-11-17] MEDS: ONDANSETRON HCL 4 MG/2 ML VIAL IV PRN (11:10)
[2018-11-17] MEDS: B-COMPLEX W/ C & FOLIC ACID(NEPHROVITE TAB) PO SCH (11:10)
[2018-11-17] MEDS: ASPirin-EC 81 mg tab PO SCH (11:10)
[2018-11-17] MEDS: FAMOTIDINE (10MG/ML) 2ML VL IV SCH ×2 (11:11→21:52)
[2018-11-17] MEDS: AMIODARONE HCL 200 MG TAB PO SCH (11:11)
[2018-11-17] MEDS: POTASSIUM EFFERVESENT TAB 25 MEQ PO SCH (11:12)
[2018-11-17] MEDS: CHOLESTYRAMINE 4 GM POWDER PO SCH ×2 (11:12→23:33)
[2018-11-17] MEDS: MEGESTROL ACETATE 20 MG TAB PO SCH ×2 (11:18→21:53)
--- NOTE | 2018-11-17 11:20 | NUR ---
URINE SENT TO LAB ORDERED.
--- NOTE | 2018-11-17 11:30 | NUR ---
LONG CHAIN BEAMER BEDSIDE COMPLETING PHOTOS AND WOUND CARE.
[2018-11-17 11:51] LABS: Urine Bacteria FEW /hpf (None Seen); Urine Blood Negative /uL (Negative); Urine Specific Gravity 1.014 (1.001-1.035); Urine WBC 21 /hpf (0 - 5)
--- NOTE | 2018-11-17 12:39 | NUR ---
Nutrition Follow-up Notes Wt.: 86.2 kg Pt's sleeping with no family by bedside. per records pt with resolving metabolic acidosis. pt with no distress noted per nursing. pt is currently on CCHO 60 gm pureed diet with inadequate PO of < 50% x 2 days per RN doc. NOted pt now on megace Est. Needs BW [id number] kcal (25-30 kcal/kgBW), 60-75 gms pro (0.8-1.0 gms/kgBW r/t elev RFT severe hypoalb wounds). Will continue to monitor pertinent labs and reassess nutrient need prn Labs: BUN 72 H, CREAT 3.6 H, GLU 216 H Skin: Papa scale 15, mod risk, pt's with pressure ulcer sacrum per RN doc. refer to notes for details. pt on nephrovite GI: Pt had 1 BM 11/16 per documentation engineer. PES: Altered nutrition related lab values r/t acute/chronic medical condition aeb elev RFT severe hypoalb, hypocalcemia, hyperglycemia, elev A1C Resolved: Impaired swallowing r/t current medical condition aeb pt`s intubated sedated with order of NPO Will continue to monitor PO intake, skin status, pertinent labs and weight trend. F/u in 3-5 days. Rec.: 1.) Consider renal specific 70 gm protein 2 gm na along with current diet if RFT continues to be elev. 2) refer to CDE on DC 3)consider prostat 1 packet bid as RFT improve 4) consider Glucerna carton bid 5) continue current plan of care
[2018-11-17 12:48] VITALS: BP 135/70
--- NOTE | 2018-11-17 14:31 | NUR ---
RT NOTE: WENT TO PTS ROOM TO ASSESS FOR PRN BREATHING TX, PT SITTING UP IN CHAIR. NO S/S OF SOB, HR 63, SPO2 93% ON RA, RR 16, WILL CONTINUE TO MONITOR PT.
[2018-11-17 17:00] VITALS: BP 114/53
--- NOTE | 2018-11-17 18:36 | NUR ---
Followed up with [facility] for room. Florentin Jimenez Pt has been accepted to room [address] accepting MD Dr. Loco
--- NOTE | 2018-11-17 19:27 | NUR ---
RESP NOTE: PRN MED NEB ASSESSMENT. PT DENIES SOB NO DISTRESS NOTED AT THIS TIME. POX 97% ON 1L NC HR 62 RR 18. BS ARE CLEAR AND DIMINISHED. TX NOT GIVEN.
[2018-11-17 20:26] VITALS: BP 114/53
[2018-11-17 22:00] VITALS: BP 109/48
[2018-11-18 05:00] VITALS: BP 128/55
[2018-11-18] MEDS: InsuLIN REG 1unit/0.01ml Soln (100units/ml) SC SCH ×3 (06:37→18:05)
[2018-11-18] MEDS: ACCU-CHEK COMFORT CURVE STRIP VI SCH ×4 (06:38→23:15)
--- NOTE | 2018-11-18 07:20 | NUR ---
Opening Shift Note Assumed care of patient, awake and alert but only to self and make non verbal responses. patient is on room air with No S/S of distress/SOB or pain. bed is in lowest position, wheels are locked, side rails up x2, bed alarm set for safety, and call light is within reach. Instructed on POC and to call for assist PRN, will continue to monitor for changes Q1hr and PRN.
[2018-11-18 09:00] VITALS: BP 118/55
[2018-11-18] MEDS: ASPirin-EC 81 mg tab PO SCH (10:29)
[2018-11-18] MEDS: POTASSIUM EFFERVESENT TAB 25 MEQ PO SCH (10:29)
[2018-11-18] MEDS: MEGESTROL ACETATE 20 MG TAB PO SCH ×2 (10:29→23:14)
[2018-11-18] MEDS: FAMOTIDINE (10MG/ML) 2ML VL IV SCH ×2 (10:29→22:00)
[2018-11-18] MEDS: B-COMPLEX W/ C & FOLIC ACID(NEPHROVITE TAB) PO SCH (10:29)
[2018-11-18] MEDS: AMIODARONE HCL 200 MG TAB PO SCH (10:30)
--- NOTE | 2018-11-18 12:05 | NUR ---
Rounds Patient awake and alert but remains confused. No S/S of distress/SOB or pain. Will continue to monitor changes q1hr and PRN.
[2018-11-18 13:00] VITALS: BP 131/68
[2018-11-18] MEDS: CHOLESTYRAMINE 4 GM POWDER PO SCH (13:02)
--- NOTE | 2018-11-18 15:00 | NUR ---
Respiratory note: PRN MEDNEB CHECK. TX NOT INDICATED AT THIS TIME. SPO2 96% ON 2L NC HR 60 RR 20 B/S CLEAR. PT AWARE TO HAVE RT PAGED IF THEY BECOME SOB. Addendum: 11/18/18 at 1509 by Gio Bailey, RT PRN MEDNEB CHECK. TX NOT INDICATED AT THIS TIME. SPO2 99% ON RA HR 69 RR 16 B/S DIMINISHED. PT AWARE TO HAVE RT PAGED IF THEY BECOME SOB.
[2018-11-18 17:00] VITALS: BP 105/58
--- NOTE | 2018-11-18 17:00 | NUR ---
Dressing Change dressing to buttocks and sacrum change. Wounds cleaned with wound clean, patted dry, thera honey applied to skin tears on buttocks, z-gaurd applied to sacral redness. optifoams applies. patient tolerated well. Will continue to monitor q1h and prn.
--- NOTE | 2018-11-18 19:02 | NUR ---
Opening Shift Note Assumed care of patient, awake and alert but only to self and make non verbal responses. patient is on room air with No S/S of distress/SOB or pain. bed is in lowest position, wheels are locked, side rails up x2, bed alarm set for safety, and call light is within reach. Instructed on POC and to call for assist PRN, will continue to monitor for changes Q1hr and PRN. Addendum: 11/18/18 at 1921 by MELY MEDRANO RN duplicate entry.
--- NOTE | 2018-11-18 19:30 | NUR ---
Opening Shift Note Assumed care of patient awake and alert only to self; pt makes occ. non verbal responses. Pt. is on R/A with No S/S of distress/SOB or pain. Bed is in lowest position, wheels are locked, HOB rails up x2, bed alarm set for safety, and call light is within reach. Instructed on POC and to call for assist PRN, will continue to monitor for changes Q1hr and PRN.
--- NOTE | 2018-11-18 19:32 | NUR ---
Closing Note Patient awake and alert laying in bed in semi-fowlers. Patient is on 1 L NC with no S/S of distress/SOB or pain. Care endorsed to ann MAGAÑA.
[2018-11-18 21:40] VITALS: BP 109/55
[2018-11-19] MEDS: InsuLIN REG 1unit/0.01ml Soln (100units/ml) SC SCH ×4 (00:05→17:30)
[2018-11-19] MEDS: CHOLESTYRAMINE 4 GM POWDER PO SCH ×2 (00:15→11:00)
[2018-11-19 05:00] VITALS: BP 112/49
[2018-11-19] MEDS: ACCU-CHEK COMFORT CURVE STRIP VI SCH ×3 (06:16→17:30)
--- NOTE | 2018-11-19 07:55 | NUR ---
PRN MN TX NOT INDICATED AT THIS TIME. PT ON 1L/MIN VIA NC. 96% O2 SATS, HR 60BPM, [id number], BS ARE CLEAR TO AUSCULTATION. SKIN IS DRY AND WARM TO THE TOUCH. NO SOB OR ANY OTHE RESPIRATORY DISTRESS NOTICED. WILL CONTINUE TO MONITOR PT.
[2018-11-19 09:28] VITALS: BP 128/62
[2018-11-19 09:28] LABS: BUN/Creatinine Ratio 19.4; Calcium 8.8 mg/dL (8.5-10.1); Potassium 4.6 mmol/L (3.5-5.1)
[2018-11-19] MEDS: MEGESTROL ACETATE 20 MG TAB PO SCH (10:38)
[2018-11-19] MEDS: FAMOTIDINE (10MG/ML) 2ML VL IV SCH (10:38)
[2018-11-19] MEDS: ASPirin-EC 81 mg tab PO SCH (10:38)
[2018-11-19] MEDS: POTASSIUM EFFERVESENT TAB 25 MEQ PO SCH (10:38)
[2018-11-19] MEDS: B-COMPLEX W/ C & FOLIC ACID(NEPHROVITE TAB) PO SCH (10:40)
[2018-11-19] MEDS: AMIODARONE HCL 200 MG TAB PO SCH (10:40)
[2018-11-19 13:00] VITALS: BP_SYST 110; BP_SYST 132; BP_DIAS 57; BP_DIAS 58
[2018-11-19 17:15] VITALS: BP 128/50
--- NOTE | 2018-11-19 18:53 | NUR ---
RT NOTE PRN ASSESSMENT DONE PRN NOT INDICATED AT THIS TIME NO RESP DISTRESS NOTED WILL CONTINUE TO MONITOR
--- NOTE | 2018-11-19 19:30 | NUR ---
= Opening Shift Note Assumed care of patient, awake, alert, and frowning. In high Ferguson's position. This RN asked pt if she was in pain or uncomfortable, but pt denied both. Pt to be transferred at 2130 to [facility]. Pt agrees she is glad to go back. Instructed on POC and to call for assist PRN. This RN will continue to monitor for changes Q1hr and PRN until pt transferred. This RN speaking with Marielena Copeland who called from [facility] to report [facility] Transport team will arrive at 2130.
--- NOTE | 2018-11-19 20:30 | NUR ---
Called Maame, daughter to alert her to the pending transfer [place]ma[place] to [facility]. Maame thanked this RN and stated she will go there tomorrow.
--- NOTE | 2018-11-19 21:40 | NUR ---
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 This RN continuing paperwork for transport then to pt's room to discontinue IJ and F/C and telemetry. Sutures securing IJ catheter snipped with sterile scissors. IJ removed slowly while pressure applied; catheter completely intact. Pt tolerated well. Pressure held to L neck with folded 2x2 gauze until bleeding/oozing stopped. Pressure dressing applied. Meza catheter balloon deflated, and catheter removed in entirety. Pt arash well. CNAs cleansing pt preparing for transport.
--- NOTE | 2018-11-19 22:45 | NUR ---
[facility] team transporting pt out of hospital via [facility] in stable condition. Pt alert and answering all questions asked; expressed parting salutations. This RN gave report to Jaleesa at [facility] via telephone and confirmed that Dr. Loco is receiving M.D.
== END 2018-11-19 22:00 | DRG 870 ==
LOC: EDBD 10:26 → ER 10:30 → TELE 10:31 → ICU WEST 10-27 17:30 → TELE-WESTW 11-06 07:50
PROVIDERS: ADMIT Nurse Practitioner Acute Care; ATTEND Internal Medicine Cardiovascular Disease
PROC: 5A1955Z Respiratory Ventilation, Greater than 96 Consecutive Hours (ICD-10-PCS; principal; 2018-10-27)
PROC: 0BH17EZ Insertion of Endotracheal Airway into Trachea, Via Natural or Artificial Opening (ICD-10-PCS; 2018-10-27)
PROC: 02HV33Z Insertion of Infusion Device into Superior Vena Cava, Percutaneous Approach (ICD-10-PCS; 2018-10-28)
PROC: 30233N1 Transfusion of Nonautologous Red Blood Cells into Peripheral Vein, Percutaneous Approach (ICD-10-PCS; 2018-11-02)
DX: A41.9 Sepsis, unspecified organism (principal); E11.10 Type 2 diabetes mellitus with ketoacidosis without coma; R65.21 Severe sepsis with septic shock; N17.0 Acute kidney failure with tubular necrosis; G93.41 Metabolic encephalopathy; J15.9 Unspecified bacterial pneumonia; J96.01 Acute respiratory failure with hypoxia; N39.0 Urinary tract infection, site not specified; I50.32 Chronic diastolic (congestive) heart failure; E44.0 Moderate protein-calorie malnutrition; I13.0 Hypertensive heart and chronic kidney disease with heart failure and stage 1 through stage 4 chronic kidney disease, or unspecified chronic kidney disease; N18.4 Chronic kidney disease, stage 4 (severe); E87.2 Acidosis; E87.1 Hypo-osmolality and hyponatremia; I47.2 Ventricular tachycardia; E87.3 Alkalosis; I35.0 Nonrheumatic aortic (valve) stenosis; E11.40 Type 2 diabetes mellitus with diabetic neuropathy, unspecified; D64.9 Anemia, unspecified; E78.5 Hyperlipidemia, unspecified; I27.20 Pulmonary hypertension, unspecified; I50.82 Biventricular heart failure; M10.9 Gout, unspecified; E87.6 Hypokalemia; D50.9 Iron deficiency anemia, unspecified; E11.22 Type 2 diabetes mellitus with diabetic chronic kidney disease; I48.91 Unspecified atrial fibrillation; B96.20 Unspecified Escherichia coli [E. coli] as the cause of diseases classified elsewhere; Z79.899 Other long term (current) drug therapy; Z82.49 Family history of ischemic heart disease and other diseases of the circulatory system; Z90.49 Acquired absence of other specified parts of digestive tract; Z90.89 Acquired absence of other organs; Z95.0 Presence of cardiac pacemaker
CPT/HCPCS: 36415; 36600; 51702; 70450; 71045; 76775; 80048; 80053; 80061; 80076; 81001; 82010; 82306; 82570; 82728; 82805; 82962; 83036; 83540; 83550; 83605; 83735; 83880; 83970; 84100; 84132; 84300; 84443; 84484; 84550; 85007; 85014; 85018; 85025; 85027; 85610; 85730; 86850; 86870; 86900; 86901; 86922; 87040; 87070; 87081; 87086; 87088; 87186; 87205; 93005; 93306; 93970; 94002; 94003; 94640; 94761; 96365; 96367; 97110; 97116; 97163; 97530; 99291; A4618; G0378; J0330; J0696; J1815; J2250; J2405; J2543; J3480; J3490; J7060

== ENCOUNTER 2018-12-22 08:44 | Inpatient (IN) | payer MEDICARE, OTHER ==
[2018-12-22] VITALS (52 sets, daily range): BP systolic 71–126; BP diastolic 29–67
[~2018-12-22] VITALS: Ht 172.7 cm; Wt 84.0 kg
[~2018-12-22 08:44] MED LIST changes: +CHOL20007 PO; +METO25TA62 PO
[2018-12-22] MEDS ORDERED: SODIUM CHLORIDE 0.9% 2,200 ML IV ONE (09:30)
[2018-12-22] MEDS ORDERED: cefTRIAXone 1GM/50ML D5W 50 ML IV ONE (09:45)
[2018-12-22 09:52] LABS: Basophils # (auto) 0.1 uL; Eosinophils # (auto) 0.1 uL; Eosinophils % (auto) 1.4 % (0.0-7.0); Hematocrit 27.4 % (36.0-46.0); Hemoglobin 8.9 g/dL (12.2-16.2); Lymphocytes # (auto) 0.5 uL; Mean Corpuscular Hemoglobin 30.2 pg (28.0-32.0); Mean Corpuscular Hgb Conc. 32.5 g/dL (32.0-36.0); Mean Corpuscular Volume 92.9 fL (80.0-100.0); Monocytes # (auto) 0.5 uL; Monocytes % (auto) 9.6 % (0.0-12.0); Neutrophils # (auto) 4.3 uL; Nucleated Red Blood Cells % 0.7 %; Platelet Count (auto) 106 10^3/uL (140-450); Red Blood Cells 2.96 10^6/uL (4.0-5.20); Red Cell Distribution Width 24.5 % (11.8-14.3); White Blood Cell 5.4 10^3/uL (4.4-10.8)
[2018-12-22 10:08] LABS: Albumin 2.5 g/dL (3.4-5.0); Calcium 8.9 mg/dL (8.5-10.1)
[2018-12-22 10:20] LABS: Bilirubin, Total 0.4 mg/dL (0.2-1.0); Total Protein 6.2 g/dL (6.4-8.2)
[2018-12-22] MEDS ORDERED: MIDAZOLAM DRIP 50 mg/50mL 50 ML IV SCH ×2 (10:51→11:05)
[2018-12-22] MEDS ORDERED: ETOMIDATE (2MG/ML) 20ML VIAL IV ONE ×2 (10:53→11:00)
[2018-12-22] MEDS ORDERED: SUCCINYLCHOLINE CHLORIDE 20 MG/ML 10ML VIAL IV ONE ×2 (10:54→11:00)
[2018-12-22] MEDS ORDERED: MIDAZOLAM DRIP 50 mg/50mL 50 ML IV ONE (10:55)
[2018-12-22] MEDS: NOREPINEPHRINE 8 MG/250ML KIT 250 ML IV SCH (11:03)
[2018-12-22] MEDS ORDERED: FUROSEMIDE 40 MG/4 ML VIAL IV ONE (11:15)
[2018-12-22] MEDS ORDERED: MORPHINE SULF INJ 2 MG/ML SYRINGE 1ML IV PRN (11:45)
[2018-12-22] MEDS ORDERED: NITROGLYCERIN 0.4 MG SL TAB SL PRN (11:45)
[2018-12-22] MEDS ORDERED: AZITHROMYCIN 500MG/ 250ML 250 ML IV ONE (11:45)
[2018-12-22] MEDS ORDERED: ALBUTEROL SULF 2.5 MG/0.5ML(0.5%) NEB SOLN NEB PRN (11:45)
[2018-12-22 12:08] LABS: Urine Bacteria MANY /hpf (None Seen); Urine Blood TRACE /uL (Negative); Urine WBC 69 /hpf (0 - 5)
[2018-12-22] MEDS: ALBUTEROL SULF 2.5 MG/0.5ML(0.5%) NEB SOLN NEB SCH ×3 (12:45→23:53)
[2018-12-22] MEDS: IPRATROPIUM BROM 0.5 MG/2.5ML INH SOL NEB SCH ×3 (12:45→23:53)
[2018-12-22] MEDS: MIDAZOLAM DRIP 50 mg/50mL 50 ML IV SCH ×2 (15:00→18:00)
[2018-12-22] MEDS: CLINDAMYCIN 600MG IV 50 ML IV SCH ×2 (15:24→21:32)
[2018-12-22] MEDS: fentaNYL Drip 2500mCg/250mlNS 250 ML IV SCH (17:13)
[2018-12-22] MEDS: ATORVASTATIN 20 MG TAB PO SCH (21:33)
[2018-12-23] VITALS (104 sets, daily range): BP systolic 70–120; BP diastolic 29–54
[2018-12-23] MEDS: NOREPINEPHRINE 8 MG/250ML KIT 250 ML IV SCH ×2 (03:34→22:29)
[2018-12-23 05:26] LABS: Basophils # (auto) 0.1 uL; Basophils % (auto) 1.5 % (0.0-2.0); Eosinophils # (auto) 0.1 uL; Eosinophils % (auto) 1.8 % (0.0-7.0); Hematocrit 27.5 % (36.0-46.0); Hemoglobin 9.1 g/dL (12.2-16.2); Lymphocytes % (auto) 12.8 % (10.0-50.0); Mean Corpuscular Hemoglobin 30.3 pg (28.0-32.0); Mean Corpuscular Hgb Conc. 33.2 g/dL (32.0-36.0); Mean Corpuscular Volume 91.4 fL (80.0-100.0); Monocytes # (auto) 0.8 uL; Neutrophils # (auto) 5.8 uL; Neutrophils % (auto) 73.9 % (37.0-80.0); Nucleated Red Blood Cells % 0.7 %; Platelet Count (auto) 140 10^3/uL (140-450); Red Blood Cells 3.01 10^6/uL (4.0-5.20); White Blood Cell 7.9 10^3/uL (4.4-10.8)
[2018-12-23] MEDS: CLINDAMYCIN 600MG IV 50 ML IV SCH (05:43)
[2018-12-23 05:49] LABS: Potassium 3.9 mmol/L (3.5-5.1)
[2018-12-23 05:53] LABS: Albumin 2.2 g/dL (3.4-5.0); BUN/Creatinine Ratio 25.1; Calcium 8.6 mg/dL (8.5-10.1)
[2018-12-23 05:56] LABS: Bilirubin, Total 0.6 mg/dL (0.2-1.0); Total Protein 5.9 g/dL (6.4-8.2)
[2018-12-23 05:57] LABS: Red Cell Distribution Width 24.3 % (11.8-14.3)
[2018-12-23] MEDS: IPRATROPIUM BROM 0.5 MG/2.5ML INH SOL NEB SCH ×4 (06:36→23:55)
[2018-12-23] MEDS: ALBUTEROL SULF 2.5 MG/0.5ML(0.5%) NEB SOLN NEB SCH ×3 (06:36→23:55)
[2018-12-23] MEDS ORDERED: FAMOTIDINE (10MG/ML) 2ML VL IV SCH (10:00)
[2018-12-23] MEDS: FUROSEMIDE 40 MG/4 ML VIAL IV SCH (10:30)
[2018-12-23] MEDS: ENOXAPARIN SOD 30 MG/0.3 ML SYRINGE SC SCH (10:30)
[2018-12-23] MEDS: ASPirin 81 mg TAB NG SCH (10:30)
[2018-12-23] MEDS ORDERED: LEVOFLOXACIN 500MG 100 ML IV SCH (12:00)
[2018-12-23] MEDS ORDERED: LEVOFLOXACIN 750MG 150 ML IV SCH (15:00)
[2018-12-23] MEDS ORDERED: VANCOMYCIN PER PHARMACY 1,000 MG IV SCH (15:15)
[2018-12-23] MEDS ORDERED: DEXTROSE (50%) 50ML SYRG IV PRN (15:30)
[2018-12-23] MEDS ORDERED: VANCOMYCIN 1GM/250ML 250 ML IV ONE (16:00)
[2018-12-23] MEDS: DOBUTamine 1000MCG/ML 250 ML IV SCH (16:43)
[2018-12-23] MEDS: fentaNYL Drip 2500mCg/250mlNS 250 ML IV SCH (16:52)
[2018-12-23] MEDS ORDERED: PIPERACILLIN-TAZOB 2.25GM 50 ML IV SCH (18:00)
[2018-12-23] MEDS ORDERED: ALBUTEROL SULF 2.5 MG/0.5ML(0.5%) NEB SOLN NEB PRN ×2 (18:00)
[2018-12-23] MEDS ORDERED: ALBUTEROL SULF 2.5 MG/0.5ML(0.5%) NEB SOLN NEB SCH (18:00)
[2018-12-23] MEDS: InsuLIN REG 1unit/0.01ml Soln (100units/ml) SC SCH (18:30)
[2018-12-23] MEDS: ACCU-CHEK COMFORT CURVE STRIP VI SCH (18:30)
[2018-12-23] MEDS: ATORVASTATIN 20 MG TAB PO SCH (22:28)
[2018-12-24] VITALS (105 sets, daily range): BP systolic 89–131; BP diastolic 32–97
[2018-12-24] MEDS: ACCU-CHEK COMFORT CURVE STRIP VI SCH ×5 (00:07→23:17)
[2018-12-24] MEDS: InsuLIN REG 1unit/0.01ml Soln (100units/ml) SC SCH ×5 (00:07→23:17)
[2018-12-24] MEDS: DOBUTamine 1000MCG/ML 250 ML IV SCH ×3 (00:45→23:07)
[2018-12-24 05:03] LABS: Basophils # (auto) 0.1 uL; Basophils % (auto) 1.1 % (0.0-2.0); Eosinophils # (auto) 0 uL; Eosinophils % (auto) 0.7 % (0.0-7.0); Hematocrit 23.7 % (36.0-46.0); Hemoglobin 7.9 g/dL (12.2-16.2); Lymphocytes # (auto) 0.5 uL; Mean Corpuscular Hemoglobin 30.5 pg (28.0-32.0); Mean Corpuscular Hgb Conc. 33.2 g/dL (32.0-36.0); Mean Corpuscular Volume 91.8 fL (80.0-100.0); Monocytes # (auto) 0.7 uL; Monocytes % (auto) 10.8 % (0.0-12.0); Neutrophils # (auto) 5.3 uL; Neutrophils % (auto) 79.4 % (37.0-80.0); Nucleated Red Blood Cells % 0.3 %; Platelet Count (auto) 79 10^3/uL (140-450); Red Blood Cells 2.58 10^6/uL (4.0-5.20); Red Cell Distribution Width 24.5 % (11.8-14.3); White Blood Cell 6.6 10^3/uL (4.4-10.8)
[2018-12-24 05:16] LABS: Calcium 8.2 mg/dL (8.5-10.1); Potassium 3.9 mmol/L (3.5-5.1)
[2018-12-24 05:18] LABS: BUN/Creatinine Ratio 24.8
[2018-12-24 05:21] LABS: Bilirubin, Total 0.6 mg/dL (0.2-1.0); Total Protein 5.5 g/dL (6.4-8.2)
[2018-12-24] MEDS: ALBUTEROL SULF 2.5 MG/0.5ML(0.5%) NEB SOLN NEB SCH ×3 (05:55→18:48)
[2018-12-24] MEDS: IPRATROPIUM BROM 0.5 MG/2.5ML INH SOL NEB SCH ×3 (05:55→18:48)
[2018-12-24] MEDS: MIDAZOLAM DRIP 50 mg/50mL 50 ML IV SCH ×2 (07:00→17:13)
[2018-12-24] MEDS: FUROSEMIDE 40 MG/4 ML VIAL IV SCH (09:54)
[2018-12-24] MEDS: ASPirin 81 mg TAB NG SCH (09:55)
[2018-12-24] MEDS: FAMOTIDINE (10MG/ML) 2ML VL IV SCH (09:55)
[2018-12-24] MEDS: ENOXAPARIN SOD 30 MG/0.3 ML SYRINGE SC SCH (09:55)
[2018-12-24] MEDS ORDERED: VANCOMYCIN 1GM/250ML 250 ML IV ONE (11:00)
[2018-12-24] MEDS: NOREPINEPHRINE 8 MG/250ML KIT 250 ML IV SCH (13:30)
[2018-12-24] MEDS: fentaNYL Drip 2500mCg/250mlNS 250 ML IV SCH (17:13)
[2018-12-24] MEDS: DexMEDEtomidine 400 MCG in D5W 5% 96 ML IV SCH (19:12)
[2018-12-24] MEDS: ATORVASTATIN 20 MG TAB PO SCH (20:49)
[2018-12-25] VITALS (98 sets, daily range): BP systolic 70–146; BP diastolic 29–55
[2018-12-25] MEDS: ALBUTEROL SULF 2.5 MG/0.5ML(0.5%) NEB SOLN NEB SCH ×4 (00:31→18:17)
[2018-12-25] MEDS: IPRATROPIUM BROM 0.5 MG/2.5ML INH SOL NEB SCH ×4 (00:31→18:17)
[2018-12-25] MEDS: NOREPINEPHRINE 8 MG/250ML KIT 250 ML IV SCH ×2 (03:38→16:26)
[2018-12-25 04:58] LABS: Basophils # (auto) 0.1 uL; Eosinophils # (auto) 0.1 uL; Hematocrit 23.4 % (36.0-46.0); Lymphocytes # (auto) 0.4 uL; Monocytes # (auto) 0.6 uL; Neutrophils # (auto) 6.2 uL; Nucleated Red Blood Cells % 0.1 %; Platelet Count (auto) 58 10^3/uL (140-450); Red Blood Cells 2.54 10^6/uL (4.0-5.20)
[2018-12-25 05:03] LABS: Basophils % (auto) 0.8 % (0.0-2.0); Eosinophils % (auto) 1.7 % (0.0-7.0); Hemoglobin 7.9 g/dL (12.2-16.2); Lymphocytes % (auto) 5.7 % (10.0-50.0); Mean Corpuscular Hemoglobin 30.9 pg (28.0-32.0); Mean Corpuscular Hgb Conc. 33.6 g/dL (32.0-36.0); Mean Corpuscular Volume 92.2 fL (80.0-100.0); Monocytes % (auto) 7.9 % (0.0-12.0); Neutrophils % (auto) 83.9 % (37.0-80.0); White Blood Cell 7.3 10^3/uL (4.4-10.8)
[2018-12-25 05:09] LABS: Potassium 3.6 mmol/L (3.5-5.1)
[2018-12-25 05:21] LABS: BUN/Creatinine Ratio 23.5; Calcium 8.2 mg/dL (8.5-10.1)
[2018-12-25 05:23] LABS: Red Cell Distribution Width 24.3 % (11.8-14.3)
[2018-12-25] MEDS: InsuLIN REG 1unit/0.01ml Soln (100units/ml) SC SCH ×4 (05:55→23:45)
[2018-12-25] MEDS: ACCU-CHEK COMFORT CURVE STRIP VI SCH ×4 (05:56→23:45)
[2018-12-25] MEDS: ASPirin 81 mg TAB NG SCH (09:09)
[2018-12-25] MEDS: FUROSEMIDE 40 MG/4 ML VIAL IV SCH ×2 (09:45→16:27)
[2018-12-25] MEDS: DOBUTamine 1000MCG/ML 250 ML IV SCH ×3 (09:45→20:22)
[2018-12-25] MEDS: FAMOTIDINE (10MG/ML) 2ML VL IV SCH (09:45)
[2018-12-25] MEDS ORDERED: Glucerna 1.2 Cal 1Liter BOTTLE GT SCH (12:15)
[2018-12-25] MEDS: cefTRIAXone 1GM/50ML D5W 50 ML IV SCH (13:04)
[2018-12-25] MEDS: MIDAZOLAM DRIP 50 mg/50mL 50 ML IV SCH (15:49)
[2018-12-25] MEDS: fentaNYL Drip 2500mCg/250mlNS 250 ML IV SCH (15:49)
[2018-12-25] MEDS: DexMEDEtomidine 400 MCG in D5W 5% 96 ML IV SCH (18:35)
[2018-12-25] MEDS: ATORVASTATIN 20 MG TAB PO SCH (21:36)
[2018-12-26] VITALS (104 sets, daily range): BP systolic 81–125; BP diastolic 29–94
[2018-12-26] MEDS: ALBUTEROL SULF 2.5 MG/0.5ML(0.5%) NEB SOLN NEB SCH ×4 (00:16→18:31)
[2018-12-26] MEDS: IPRATROPIUM BROM 0.5 MG/2.5ML INH SOL NEB SCH ×4 (00:16→18:31)
[2018-12-26 03:49] LABS: Eosinophils # (auto) 0.2 uL; Hemoglobin 7.7 g/dL (12.2-16.2); Lymphocytes # (auto) 0.4 uL; Monocytes # (auto) 0.8 uL; Neutrophils # (auto) 7.8 uL
[2018-12-26 03:52] LABS: Basophils # (auto) 0 uL; Basophils % (auto) 0.3 % (0.0-2.0); Eosinophils % (auto) 1.7 % (0.0-7.0); Hematocrit 22.7 % (36.0-46.0); Mean Corpuscular Hemoglobin 31.1 pg (28.0-32.0); Mean Corpuscular Hgb Conc. 33.8 g/dL (32.0-36.0); Mean Corpuscular Volume 92.1 fL (80.0-100.0); Nucleated Red Blood Cells % 0.1 %; Platelet Count (auto) 49 10^3/uL (140-450); Red Blood Cells 2.47 10^6/uL (4.0-5.20); White Blood Cell 9.1 10^3/uL (4.4-10.8)
[2018-12-26 04:03] LABS: Red Cell Distribution Width 23.7 % (11.8-14.3)
[2018-12-26 04:09] LABS: Albumin 1.9 g/dL (3.4-5.0); Calcium 8.4 mg/dL (8.5-10.1)
[2018-12-26 04:11] LABS: BUN/Creatinine Ratio 22.4
[2018-12-26 04:14] LABS: Bilirubin, Total 0.8 mg/dL (0.2-1.0); Total Protein 5.4 g/dL (6.4-8.2)
[2018-12-26] MEDS: ACCU-CHEK COMFORT CURVE STRIP VI SCH ×4 (05:46→23:39)
[2018-12-26] MEDS: InsuLIN REG 1unit/0.01ml Soln (100units/ml) SC SCH ×4 (05:47→23:39)
[2018-12-26] MEDS: DOBUTamine 1000MCG/ML 250 ML IV SCH ×2 (06:44→17:37)
[2018-12-26] MEDS: FAMOTIDINE (10MG/ML) 2ML VL IV SCH (10:34)
[2018-12-26] MEDS: cefTRIAXone 1GM/50ML D5W 50 ML IV SCH (10:34)
[2018-12-26] MEDS: FUROSEMIDE 40 MG/4 ML VIAL IV SCH (10:34)
[2018-12-26] MEDS: NOREPINEPHRINE 8 MG/250ML KIT 250 ML IV SCH (13:05)
[2018-12-26] MEDS: fentaNYL Drip 2500mCg/250mlNS 250 ML IV SCH (13:06)
[2018-12-26] MEDS: MIDAZOLAM DRIP 50 mg/50mL 50 ML IV SCH (13:07)
[2018-12-26] MEDS: DexMEDEtomidine 400 MCG in D5W 5% 96 ML IV SCH (19:12)
[2018-12-26] MEDS: ATORVASTATIN 20 MG TAB PO SCH (21:37)
[2018-12-27] VITALS (95 sets, daily range): BP systolic 91–112; BP diastolic 24–58
[2018-12-27] MEDS: ALBUTEROL SULF 2.5 MG/0.5ML(0.5%) NEB SOLN NEB SCH ×4 (00:20→19:24)
[2018-12-27] MEDS: IPRATROPIUM BROM 0.5 MG/2.5ML INH SOL NEB SCH ×4 (00:20→19:24)
[2018-12-27] MEDS: InsuLIN REG 1unit/0.01ml Soln (100units/ml) SC SCH ×4 (05:19→17:45)
[2018-12-27] MEDS: ACCU-CHEK COMFORT CURVE STRIP VI SCH ×3 (05:19→17:58)
[2018-12-27] MEDS: DOBUTamine 1000MCG/ML 250 ML IV SCH ×2 (05:22→15:12)
[2018-12-27] MEDS: cefTRIAXone 1GM/50ML D5W 50 ML IV SCH (08:54)
[2018-12-27] MEDS: FAMOTIDINE (10MG/ML) 2ML VL IV SCH (10:00)
[2018-12-27] MEDS: FUROSEMIDE 40 MG/4 ML VIAL IV SCH (10:00)
[2018-12-27] MEDS: DexMEDEtomidine 400 MCG in D5W 5% 96 ML IV SCH (12:43)
[2018-12-27] MEDS: MIDAZOLAM DRIP 50 mg/50mL 50 ML IV SCH (12:43)
[2018-12-27] MEDS: fentaNYL Drip 2500mCg/250mlNS 250 ML IV SCH (12:43)
[2018-12-27] MEDS: ATORVASTATIN 20 MG TAB PO SCH (22:00)
[2018-12-28] VITALS (98 sets, daily range): BP systolic 86–113; BP diastolic 29–50
[2018-12-28] MEDS: ACCU-CHEK COMFORT CURVE STRIP VI SCH ×4 (00:18→17:28)
[2018-12-28] MEDS: ALBUTEROL SULF 2.5 MG/0.5ML(0.5%) NEB SOLN NEB SCH ×5 (01:01→23:58)
[2018-12-28] MEDS: IPRATROPIUM BROM 0.5 MG/2.5ML INH SOL NEB SCH ×5 (01:01→23:58)
[2018-12-28] MEDS: DOBUTamine 1000MCG/ML 250 ML IV SCH ×3 (01:04→21:15)
[2018-12-28] MEDS: NOREPINEPHRINE 8 MG/250ML KIT 250 ML IV SCH (01:25)
[2018-12-28 04:17] LABS: Basophils # (auto) 0.1 uL; Eosinophils # (auto) 0.1 uL; Mean Corpuscular Hemoglobin 30.7 pg (28.0-32.0); Mean Corpuscular Hgb Conc. 33.8 g/dL (32.0-36.0)
[2018-12-28 04:22] LABS: Basophils % (auto) 1.1 % (0.0-2.0); Eosinophils % (auto) 2.1 % (0.0-7.0); Lymphocytes # (auto) 0.4 uL; Lymphocytes % (auto) 6.5 % (10.0-50.0); Mean Corpuscular Volume 90.8 fL (80.0-100.0); Monocytes # (auto) 0.5 uL; Monocytes % (auto) 8.3 % (0.0-12.0); Neutrophils # (auto) 4.5 uL; Nucleated Red Blood Cells % 0.2 %; Platelet Count (auto) 39 10^3/uL (140-450); White Blood Cell 5.5 10^3/uL (4.4-10.8)
[2018-12-28 04:25] LABS: Calcium 8.4 mg/dL (8.5-10.1); Potassium 3.7 mmol/L (3.5-5.1)
[2018-12-28 04:29] LABS: BUN/Creatinine Ratio 22.2
[2018-12-28 04:37] LABS: Hemoglobin 6.8 g/dL (12.2-16.2)
[2018-12-28 04:38] LABS: Red Cell Distribution Width 22.7 % (11.8-14.3)
[2018-12-28] MEDS: InsuLIN REG 1unit/0.01ml Soln (100units/ml) SC SCH ×3 (06:02→17:29)
[2018-12-28] MEDS: FAMOTIDINE (10MG/ML) 2ML VL IV SCH (09:21)
[2018-12-28] MEDS: cefTRIAXone 1GM/50ML D5W 50 ML IV SCH (09:21)
[2018-12-28] MEDS: FUROSEMIDE 40 MG/4 ML VIAL IV SCH (09:26)
[2018-12-28] MEDS: ATORVASTATIN 20 MG TAB PO SCH (22:00)
[2018-12-29] VITALS (80 sets, daily range): BP systolic 83–120; BP diastolic 32–54
[2018-12-29 03:58] LABS: Basophils # (auto) 0.1 uL; Eosinophils # (auto) 0.2 uL; Lymphocytes # (auto) 0.4 uL; Monocytes # (auto) 0.6 uL; Monocytes % (auto) 11.3 % (0.0-12.0)
[2018-12-29 04:01] LABS: Basophils % (auto) 1.5 % (0.0-2.0); Eosinophils % (auto) 3.8 % (0.0-7.0); Hematocrit 26.1 % (36.0-46.0); Hemoglobin 9.4 g/dL (12.2-16.2); Lymphocytes % (auto) 7.8 % (10.0-50.0); Mean Corpuscular Hemoglobin 31.2 pg (28.0-32.0); Mean Corpuscular Hgb Conc. 36.1 g/dL (32.0-36.0); Mean Corpuscular Volume 86.6 fL (80.0-100.0); Neutrophils # (auto) 3.7 uL; Neutrophils % (auto) 75.6 % (37.0-80.0); Nucleated Red Blood Cells % 0.1 %; Red Blood Cells 3.02 10^6/uL (4.0-5.20); Red Cell Distribution Width 19.7 % (11.8-14.3); White Blood Cell 4.9 10^3/uL (4.4-10.8)
[2018-12-29 04:15] LABS: Calcium 8.7 mg/dL (8.5-10.1); Potassium 3.6 mmol/L (3.5-5.1)
[2018-12-29 04:21] LABS: Platelet Count (auto) 47 10^3/uL (140-450)
[2018-12-29] MEDS: InsuLIN REG 1unit/0.01ml Soln (100units/ml) SC SCH ×5 (05:36→23:44)
[2018-12-29] MEDS: ACCU-CHEK COMFORT CURVE STRIP VI SCH ×5 (05:36→23:44)
[2018-12-29] MEDS: ALBUTEROL SULF 2.5 MG/0.5ML(0.5%) NEB SOLN NEB SCH ×3 (06:38→18:31)
[2018-12-29] MEDS: IPRATROPIUM BROM 0.5 MG/2.5ML INH SOL NEB SCH ×3 (06:38→18:31)
[2018-12-29] MEDS: DOBUTamine 1000MCG/ML 250 ML IV SCH ×2 (06:53→17:37)
[2018-12-29] MEDS: cefTRIAXone 1GM/50ML D5W 50 ML IV SCH (09:25)
[2018-12-29] MEDS: FAMOTIDINE (10MG/ML) 2ML VL IV SCH (09:25)
[2018-12-29] MEDS: FUROSEMIDE 40 MG/4 ML VIAL IV SCH (09:26)
[2018-12-29] MEDS: NOREPINEPHRINE 8 MG/250ML KIT 250 ML IV SCH (09:29)
[2018-12-29] MEDS: ATORVASTATIN 20 MG TAB PO SCH (21:33)
[2018-12-30] VITALS (41 sets, daily range): BP systolic 97–131; BP diastolic 42–63
[2018-12-30] MEDS: IPRATROPIUM BROM 0.5 MG/2.5ML INH SOL NEB SCH ×4 (00:15→18:44)
[2018-12-30] MEDS: ALBUTEROL SULF 2.5 MG/0.5ML(0.5%) NEB SOLN NEB SCH ×4 (00:16→18:44)
[2018-12-30] MEDS: DOBUTamine 1000MCG/ML 250 ML IV SCH ×3 (03:11→22:36)
[2018-12-30 06:00] LABS: Hemoglobin 10.7 g/dL (12.2-16.2); Lymphocytes # (auto) 0.3 uL; Monocytes # (auto) 0.4 uL; Nucleated Red Blood Cells % 0.1 %; Platelet Count (auto) 41 10^3/uL (140-450)
[2018-12-30] MEDS: InsuLIN REG 1unit/0.01ml Soln (100units/ml) SC SCH ×3 (06:00→18:35)
[2018-12-30 06:02] LABS: Basophils # (auto) 0 uL; Eosinophils # (auto) 0.3 uL; Eosinophils % (auto) 6.3 % (0.0-7.0); Hematocrit 31.3 % (36.0-46.0); Mean Corpuscular Hemoglobin 30.2 pg (28.0-32.0); Mean Corpuscular Hgb Conc. 34.4 g/dL (32.0-36.0); Mean Corpuscular Volume 87.9 fL (80.0-100.0); Monocytes % (auto) 8.9 % (0.0-12.0); Neutrophils # (auto) 3.9 uL; Neutrophils % (auto) 77.8 % (37.0-80.0); Red Blood Cells 3.56 10^6/uL (4.0-5.20); Red Cell Distribution Width 18.9 % (11.8-14.3)
[2018-12-30] MEDS: ACCU-CHEK COMFORT CURVE STRIP VI SCH ×3 (06:09→18:17)
[2018-12-30] MEDS: FUROSEMIDE 40 MG/4 ML VIAL IV SCH (09:17)
[2018-12-30] MEDS: FAMOTIDINE (10MG/ML) 2ML VL IV SCH (09:25)
[2018-12-30] MEDS: cefTRIAXone 1GM/50ML D5W 50 ML IV SCH (09:25)
[2018-12-30] MEDS: NOREPINEPHRINE 8 MG/250ML KIT 250 ML IV SCH (09:29)
[2018-12-30] MEDS: ATORVASTATIN 20 MG TAB PO SCH (22:00)
[2018-12-31] VITALS (7 sets, daily range): BP systolic 97–116; BP diastolic 37–97
[2018-12-31] MEDS: ALBUTEROL SULF 2.5 MG/0.5ML(0.5%) NEB SOLN NEB SCH ×4 (00:23→18:25)
[2018-12-31] MEDS: IPRATROPIUM BROM 0.5 MG/2.5ML INH SOL NEB SCH ×4 (00:23→18:25)
[2018-12-31] MEDS: ACCU-CHEK COMFORT CURVE STRIP VI SCH ×4 (05:54→17:30)
[2018-12-31] MEDS: InsuLIN REG 1unit/0.01ml Soln (100units/ml) SC SCH ×4 (05:55→17:31)
[2018-12-31] MEDS: DOBUTamine 1000MCG/ML 250 ML IV SCH (08:44)
[2018-12-31] MEDS: cefTRIAXone 1GM/50ML D5W 50 ML IV SCH (08:44)
[2018-12-31] MEDS: FUROSEMIDE 40 MG/4 ML VIAL IV SCH (10:37)
[2018-12-31] MEDS: FAMOTIDINE (10MG/ML) 2ML VL IV SCH (11:19)
[2018-12-31] MEDS: ATORVASTATIN 20 MG TAB PO SCH (22:00)
[2019-01-01] VITALS (41 sets, daily range): BP systolic 79–124; BP diastolic 37–60
[2019-01-01] MEDS: ALBUTEROL SULF 2.5 MG/0.5ML(0.5%) NEB SOLN NEB SCH ×4 (00:18→18:41)
[2019-01-01] MEDS: IPRATROPIUM BROM 0.5 MG/2.5ML INH SOL NEB SCH ×4 (00:18→18:41)
[2019-01-01] MEDS: DOBUTamine 1000MCG/ML 250 ML IV SCH ×2 (05:51→16:34)
[2019-01-01] MEDS: ACCU-CHEK COMFORT CURVE STRIP VI SCH ×4 (06:00→17:50)
[2019-01-01] MEDS: InsuLIN REG 1unit/0.01ml Soln (100units/ml) SC SCH ×4 (06:00→17:50)
[2019-01-01] MEDS: cefTRIAXone 1GM/50ML D5W 50 ML IV SCH (08:59)
[2019-01-01] MEDS: FUROSEMIDE 40 MG/4 ML VIAL IV SCH (09:56)
[2019-01-01] MEDS: FAMOTIDINE (10MG/ML) 2ML VL IV SCH (10:01)
[2019-01-01] MEDS ORDERED: SODIUM CHLORIDE 0.9% 500 ML IV ONE (11:00)
[2019-01-01] MEDS ORDERED: EPOETIN ALFA 10,000 UNIT/1 ML VIAL SC ONE (13:00)
[2019-01-01 13:35] LABS: Basophils # (auto) 0.1 uL; Lymphocytes # (auto) 0.3 uL; Neutrophils # (auto) 4.5 uL; Nucleated Red Blood Cells % 0.1 %; Platelet Count (auto) 56 10^3/uL (140-450); White Blood Cell 5.6 10^3/uL (4.4-10.8)
[2019-01-01 13:36] LABS: Basophils % (auto) 1.9 % (0.0-2.0); Eosinophils # (auto) 0.3 uL; Eosinophils % (auto) 4.8 % (0.0-7.0); Hematocrit 32.6 % (36.0-46.0); Hemoglobin 11.3 g/dL (12.2-16.2); Lymphocytes % (auto) 6.1 % (10.0-50.0); Mean Corpuscular Hemoglobin 30.5 pg (28.0-32.0); Mean Corpuscular Hgb Conc. 34.6 g/dL (32.0-36.0); Mean Corpuscular Volume 88.2 fL (80.0-100.0); Monocytes # (auto) 0.4 uL; Monocytes % (auto) 7.7 % (0.0-12.0); Neutrophils % (auto) 79.5 % (37.0-80.0); Red Cell Distribution Width 18.9 % (11.8-14.3)
[2019-01-01 13:50] LABS: Albumin 2.1 g/dL (3.4-5.0); BUN/Creatinine Ratio 23.5; Calcium 8.9 mg/dL (8.5-10.1); Potassium 3.1 mmol/L (3.5-5.1)
[2019-01-01 13:53] LABS: Bilirubin, Total 0.5 mg/dL (0.2-1.0); Total Protein 6.1 g/dL (6.4-8.2)
[2019-01-01] MEDS ORDERED: POTASSIUM CHLORIDE 60 MEQ, LIDOCAINE 1% (LOCAL ANESTH.) 6 ML in SODIUM CHL 0.9% 500 ML IV ONE (15:15)
[2019-01-01] MEDS ORDERED: TPN PER PHARMACY 0 ML IV SCH (15:15)
[2019-01-01] MEDS ORDERED: CLINIMIX PER PHARMACY IV NR ×3 (20:00)
[2019-01-01] MEDS ORDERED: DEXTROSE (50%) 50ML SYRG IV SCH (20:00)
[2019-01-01] MEDS: ATORVASTATIN 20 MG TAB PO SCH (23:16)
[2019-01-02] VITALS (7 sets, daily range): BP systolic 102–132; BP diastolic 41–63
[2019-01-02] MEDS: ALBUTEROL SULF 2.5 MG/0.5ML(0.5%) NEB SOLN NEB SCH ×4 (00:15→18:37)
[2019-01-02] MEDS: IPRATROPIUM BROM 0.5 MG/2.5ML INH SOL NEB SCH ×4 (00:15→18:37)
[2019-01-02] MEDS: DOBUTamine 1000MCG/ML 250 ML IV SCH ×2 (03:12→14:23)
[2019-01-02 05:07] LABS: Eosinophils # (auto) 0.1 uL; Hemoglobin 10.5 g/dL (12.2-16.2); Lymphocytes # (auto) 0.3 uL; Mean Corpuscular Hemoglobin 30.6 pg (28.0-32.0); Mean Corpuscular Hgb Conc. 34.3 g/dL (32.0-36.0); Mean Corpuscular Volume 89.1 fL (80.0-100.0); Monocytes # (auto) 0.5 uL; Platelet Count (auto) 61 10^3/uL (140-450)
[2019-01-02 05:10] LABS: Basophils # (auto) 0 uL; Basophils % (auto) 0.8 % (0.0-2.0); Eosinophils % (auto) 2.6 % (0.0-7.0); Hematocrit 30.5 % (36.0-46.0); Lymphocytes % (auto) 5.2 % (10.0-50.0); Monocytes % (auto) 9.5 % (0.0-12.0); Neutrophils # (auto) 4.7 uL; Neutrophils % (auto) 81.9 % (37.0-80.0); Red Blood Cells 3.42 10^6/uL (4.0-5.20); Red Cell Distribution Width 18.9 % (11.8-14.3); White Blood Cell 5.7 10^3/uL (4.4-10.8)
[2019-01-02 05:34] LABS: Potassium 3.4 mmol/L (3.5-5.1)
[2019-01-02 05:39] LABS: Albumin 2.2 g/dL (3.4-5.0); BUN/Creatinine Ratio 23.1; Calcium 8.8 mg/dL (8.5-10.1); Magnesium 1.9 mg/dL (1.6-2.6)
[2019-01-02 05:41] LABS: Bilirubin, Total 0.4 mg/dL (0.2-1.0)
[2019-01-02 06:07] LABS: Phosphorus 3.6 mg/dL (2.5-4.90); Pre Albumin 8.1 mg/dL (20.0-40.0)
[2019-01-02] MEDS: ACCU-CHEK COMFORT CURVE STRIP VI SCH ×4 (06:13→18:04)
[2019-01-02] MEDS: InsuLIN REG 1unit/0.01ml Soln (100units/ml) SC SCH ×4 (06:14→18:04)
[2019-01-02] MEDS: cefTRIAXone 1GM/50ML D5W 50 ML IV SCH (08:29)
[2019-01-02] MEDS: FUROSEMIDE 40 MG/4 ML VIAL IV SCH ×2 (09:35→18:18)
[2019-01-02] MEDS: FAMOTIDINE (10MG/ML) 2ML VL IV SCH (09:35)
[2019-01-02] MEDS ORDERED: POTASSIUM CHL 20MEQ/100ML 100 ML IV ONE (12:30)
[2019-01-02] MEDS ORDERED: TPN PER PHARMACY IV NR ×10 (20:00)
[2019-01-02] MEDS: ATORVASTATIN 20 MG TAB PO SCH (21:40)
[2019-01-03] VITALS (15 sets, daily range): BP systolic 110–125; BP diastolic 48–61
[2019-01-03] MEDS: InsuLIN REG 1unit/0.01ml Soln (100units/ml) SC SCH ×5 (00:09→23:56)
[2019-01-03] MEDS: ACCU-CHEK COMFORT CURVE STRIP VI SCH ×5 (00:09→23:55)
[2019-01-03] MEDS: IPRATROPIUM BROM 0.5 MG/2.5ML INH SOL NEB SCH ×4 (00:20→18:53)
[2019-01-03] MEDS: ALBUTEROL SULF 2.5 MG/0.5ML(0.5%) NEB SOLN NEB SCH ×4 (00:20→18:53)
[2019-01-03] MEDS: DOBUTamine 1000MCG/ML 250 ML IV SCH ×3 (01:57→22:12)
[2019-01-03] MEDS: FUROSEMIDE 40 MG/4 ML VIAL IV SCH ×2 (06:15→17:53)
[2019-01-03 06:39] LABS: Bilirubin, Total 0.4 mg/dL (0.2-1.0); Phosphorus 2.9 mg/dL (2.5-4.90)
[2019-01-03 06:41] LABS: BUN/Creatinine Ratio 26.5; Calcium 8.8 mg/dL (8.5-10.1); Magnesium 1.9 mg/dL (1.6-2.6); Potassium 3.8 mmol/L (3.5-5.1)
[2019-01-03 08:08] LABS: Basophils # (auto) 0.1 uL; Eosinophils # (auto) 0.1 uL; Hemoglobin 10.6 g/dL (12.2-16.2); Mean Corpuscular Hgb Conc. 34.5 g/dL (32.0-36.0); Neutrophils % (auto) 84.9 % (37.0-80.0); Red Blood Cells 3.45 10^6/uL (4.0-5.20)
[2019-01-03 08:10] LABS: Eosinophils % (auto) 1.8 % (0.0-7.0); Hematocrit 30.6 % (36.0-46.0); Lymphocytes # (auto) 0.3 uL; Lymphocytes % (auto) 4.8 % (10.0-50.0); Mean Corpuscular Hemoglobin 30.6 pg (28.0-32.0); Mean Corpuscular Volume 88.8 fL (80.0-100.0); Monocytes # (auto) 0.5 uL; Monocytes % (auto) 7.5 % (0.0-12.0); Neutrophils # (auto) 5.7 uL; Nucleated Red Blood Cells % 0.1 %; Platelet Count (auto) 65 10^3/uL (140-450); Red Cell Distribution Width 19.1 % (11.8-14.3); White Blood Cell 6.8 10^3/uL (4.4-10.8)
[2019-01-03 08:26] LABS: INR 1.14 (0.9-1.15); Partial Thromboplastin Time 30.1 sec (23.64-32.05)
[2019-01-03] MEDS: FAMOTIDINE (10MG/ML) 2ML VL IV SCH (09:38)
[2019-01-03] MEDS: Glucerna Carbsteady SHAKE Stawberry 8oz PO SCH (17:53)
[2019-01-03] MEDS ORDERED: TPN PER PHARMACY IV NR ×10 (20:00)
[2019-01-03] MEDS: ATORVASTATIN 20 MG TAB PO SCH (20:21)
[2019-01-04] VITALS (8 sets, daily range): BP systolic 99–134; BP diastolic 45–64
[2019-01-04] MEDS: IPRATROPIUM BROM 0.5 MG/2.5ML INH SOL NEB SCH ×4 (00:10→18:41)
[2019-01-04] MEDS: ALBUTEROL SULF 2.5 MG/0.5ML(0.5%) NEB SOLN NEB SCH ×4 (00:10→18:41)
[2019-01-04] MEDS: DOBUTamine 1000MCG/ML 250 ML IV SCH ×3 (01:24→21:48)
[2019-01-04 06:33] LABS: Potassium 4.2 mmol/L (3.5-5.1)
[2019-01-04] MEDS: FUROSEMIDE 40 MG/4 ML VIAL IV SCH ×2 (06:34→17:06)
[2019-01-04] MEDS: ACCU-CHEK COMFORT CURVE STRIP VI SCH ×4 (06:34→23:42)
[2019-01-04] MEDS: InsuLIN REG 1unit/0.01ml Soln (100units/ml) SC SCH ×4 (06:35→23:43)
[2019-01-04 06:42] LABS: BUN/Creatinine Ratio 31.7; Bilirubin, Total 0.4 mg/dL (0.2-1.0); Calcium 8.5 mg/dL (8.5-10.1); Magnesium 2.1 mg/dL (1.6-2.6); Phosphorus 3.1 mg/dL (2.5-4.90); Total Protein 5.6 g/dL (6.4-8.2)
[2019-01-04] MEDS: Glucerna Carbsteady SHAKE Stawberry 8oz PO SCH ×2 (08:00→17:01)
[2019-01-04] MEDS: FAMOTIDINE (10MG/ML) 2ML VL IV SCH (09:13)
[2019-01-04] MEDS: SODIUM CHLORIDE 0.9% 1,000 ML IV SCH ×2 (17:01→21:30)
[2019-01-04] MEDS: ATORVASTATIN 20 MG TAB PO SCH (19:53)
[2019-01-04] MEDS ORDERED: TPN PER PHARMACY IV NR ×10 (20:00)
[2019-01-05] VITALS (7 sets, daily range): BP systolic 93–103; BP diastolic 39–47
[2019-01-05] MEDS: ALBUTEROL SULF 2.5 MG/0.5ML(0.5%) NEB SOLN NEB SCH ×4 (00:09→19:44)
[2019-01-05] MEDS: IPRATROPIUM BROM 0.5 MG/2.5ML INH SOL NEB SCH ×4 (00:09→19:43)
[2019-01-05] MEDS: DOBUTamine 1000MCG/ML 250 ML IV SCH ×2 (03:04→13:34)
[2019-01-05] MEDS: ACCU-CHEK COMFORT CURVE STRIP VI SCH ×3 (05:49→17:42)
[2019-01-05] MEDS: InsuLIN REG 1unit/0.01ml Soln (100units/ml) SC SCH ×3 (05:49→17:42)
[2019-01-05] MEDS: FUROSEMIDE 40 MG/4 ML VIAL IV SCH ×2 (06:09→18:11)
[2019-01-05] MEDS: SODIUM CHLORIDE 0.9% 1,000 ML IV SCH ×2 (06:09→17:30)
[2019-01-05 06:22] LABS: Albumin 1.8 g/dL (3.4-5.0); Calcium 8.3 mg/dL (8.5-10.1); Magnesium 1.8 mg/dL (1.6-2.6); Phosphorus 2.9 mg/dL (2.5-4.90); Potassium 4.3 mmol/L (3.5-5.1)
[2019-01-05 06:25] LABS: BUN/Creatinine Ratio 36.1; Bilirubin, Total 0.4 mg/dL (0.2-1.0); Total Protein 5.5 g/dL (6.4-8.2)
[2019-01-05] MEDS: Glucerna Carbsteady SHAKE Stawberry 8oz PO SCH ×2 (08:00→17:42)
[2019-01-05] MEDS: FAMOTIDINE (10MG/ML) 2ML VL IV SCH (09:24)
[2019-01-05] MEDS ORDERED: TPN PER PHARMACY IV NR ×10 (20:00)
[2019-01-05] MEDS: ATORVASTATIN 20 MG TAB PO SCH (22:00)
[2019-01-06] VITALS (93 sets, daily range): BP systolic 73–106; BP diastolic 26–89
[2019-01-06] MEDS: IPRATROPIUM BROM 0.5 MG/2.5ML INH SOL NEB SCH ×4 (00:32→18:29)
[2019-01-06] MEDS: ALBUTEROL SULF 2.5 MG/0.5ML(0.5%) NEB SOLN NEB SCH ×4 (00:32→18:29)
[2019-01-06] MEDS ORDERED: ETOMIDATE (2MG/ML) 20ML VIAL IV ONE ×2 (01:46→02:00)
[2019-01-06] MEDS ORDERED: SUCCINYLCHOLINE CHLORIDE 20 MG/ML 10ML VIAL IV ONE ×2 (01:47→02:00)
[2019-01-06] MEDS: MIDAZOLAM DRIP 50 mg/50mL 50 ML IV SCH (01:56)
[2019-01-06] MEDS ORDERED: MIDAZOLAM DRIP 50 mg/50mL 50 ML IV ONE (01:56)
[2019-01-06] MEDS: NOREPINEPHRINE 8 MG/250ML KIT 250 ML IV SCH ×2 (02:00→20:21)
[2019-01-06] MEDS ORDERED: NOREPINEPHRINE 8 MG/250ML KIT 250 ML IV ONE (02:02)
[2019-01-06] MEDS: SODIUM CHLORIDE 0.9% 1,000 ML IV SCH (03:30)
[2019-01-06] MEDS: DOBUTamine 1000MCG/ML 250 ML IV SCH ×4 (04:24→21:38)
[2019-01-06] MEDS: FUROSEMIDE 40 MG/4 ML VIAL IV SCH ×2 (06:00→16:19)
[2019-01-06] MEDS: ACCU-CHEK COMFORT CURVE STRIP VI SCH ×5 (06:03→23:48)
[2019-01-06] MEDS: InsuLIN REG 1unit/0.01ml Soln (100units/ml) SC SCH ×5 (06:07→23:48)
[2019-01-06 07:19] LABS: Hematocrit 27.2 % (36.0-46.0); Hemoglobin 9.1 g/dL (12.2-16.2); Mean Corpuscular Hemoglobin 30.5 pg (28.0-32.0); Mean Corpuscular Hgb Conc. 33.4 g/dL (32.0-36.0); Mean Corpuscular Volume 91.3 fL (80.0-100.0); Platelet Count (auto) 85 10^3/uL (140-450); Red Blood Cells 2.98 10^6/uL (4.0-5.20); Red Cell Distribution Width 19.4 % (11.8-14.3); White Blood Cell 8.3 10^3/uL (4.4-10.8)
[2019-01-06 07:25] LABS: Calcium 8.2 mg/dL (8.5-10.1); Potassium 4.3 mmol/L (3.5-5.1)
[2019-01-06 07:26] LABS: Basophils % (manual) 0 (0.0-2.0); Blast Cells 0; Eosinophils % (manual) 0 (0-7); Metamyelocytes % 0; Myelocytes % 0; Promyelocytes % 0; Reactive Lymphocytes 0
[2019-01-06 07:29] LABS: Albumin 1.7 g/dL (3.4-5.0); BUN/Creatinine Ratio 38.5; Bilirubin, Total 0.4 mg/dL (0.2-1.0); Phosphorus 3.8 mg/dL (2.5-4.90); Total Protein 5.2 g/dL (6.4-8.2)
[2019-01-06 07:37] LABS: Band Neutrophils % (manual) 1; Lymphocytes % (manual) 4 (10.0-50.0); Monocytes % (manual) 5 (0-12)
[2019-01-06] MEDS: Glucerna Carbsteady SHAKE Stawberry 8oz PO SCH (08:00)
[2019-01-06] MEDS ORDERED: Glucerna 1.2 Cal 1Liter BOTTLE GT SCH (11:30)
[2019-01-06] MEDS: fentaNYL Drip 2500mCg/250mlNS 250 ML IV SCH (11:43)
[2019-01-06] MEDS: FAMOTIDINE (10MG/ML) 2ML VL IV SCH (11:44)
[2019-01-06] MEDS: ASPirin 81 mg TAB NG SCH (11:56)
[2019-01-06] MEDS ORDERED: SODIUM CHLORIDE 0.9% 500 ML IV ONE (15:45)
[2019-01-06] MEDS ORDERED: TPN PER PHARMACY IV NR ×10 (20:00)
[2019-01-06] MEDS: ATORVASTATIN 20 MG TAB PO SCH (21:43)
[2019-01-07] VITALS (94 sets, daily range): BP systolic 80–105; BP diastolic 4–40
[2019-01-07] MEDS: ALBUTEROL SULF 2.5 MG/0.5ML(0.5%) NEB SOLN NEB SCH ×4 (00:14→18:50)
[2019-01-07] MEDS: IPRATROPIUM BROM 0.5 MG/2.5ML INH SOL NEB SCH ×4 (00:14→18:50)
[2019-01-07] MEDS: MIDAZOLAM DRIP 50 mg/50mL 50 ML IV SCH (01:56)
[2019-01-07 05:07] LABS: Anion Gap 8 (5-15); Carbon Dioxide 20 mmol/L (21-32); Chloride 109 mmol/L (98-107); Glucose 90 mg/dL (74-106); Potassium 4.5 mmol/L (3.5-5.1); Sodium 137 mmol/L (136-145)
[2019-01-07 05:08] LABS: Alanine Aminotransferase 12 U/L (13-56); Albumin 1.7 g/dL (3.4-5.0); Alkaline Phosphatase 75 U/L (45-117); Aspartate Aminotransferase 12 U/L (15-37); Bilirubin, Total 0.3 mg/dL (0.2-1.0); Blood Urea Nitrogen 86 mg/dL (7-18); Calcium 8.2 mg/dL (8.5-10.1); GFR African American 29 mL/min; GFR Non-African American 24 mL/min; Phosphorus 4.5 mg/dL (2.5-4.90); Total Protein 5.3 g/dL (6.4-8.2)
[2019-01-07 05:09] LABS: Magnesium 2.1 mg/dL (1.6-2.6); Pre Albumin 9.4 mg/dL (20.0-40.0); Triglycerides 30 mg/dL (< 150)
[2019-01-07] MEDS: NOREPINEPHRINE 8 MG/250ML KIT 250 ML IV SCH ×2 (05:15→21:36)
[2019-01-07] MEDS: FUROSEMIDE 40 MG/4 ML VIAL IV SCH ×2 (06:00→17:26)
[2019-01-07] MEDS: DOBUTamine 1000MCG/ML 250 ML IV SCH ×2 (06:57→14:43)
[2019-01-07] MEDS: ACCU-CHEK COMFORT CURVE STRIP VI SCH ×3 (07:00→17:26)
[2019-01-07] MEDS: InsuLIN REG 1unit/0.01ml Soln (100units/ml) SC SCH ×3 (07:00→17:26)
[2019-01-07] MEDS: FAMOTIDINE (10MG/ML) 2ML VL IV SCH (10:40)
[2019-01-07] MEDS: ASPirin 81 mg TAB NG SCH (10:40)
[2019-01-07] MEDS: fentaNYL Drip 2500mCg/250mlNS 250 ML IV SCH (11:22)
[2019-01-07] MEDS ORDERED: FLUCONAZOLE 200MG/100ML 100 ML IV ONE (14:00)
[2019-01-07] MEDS ORDERED: TPN PER PHARMACY IV NR ×9 (20:00)
[2019-01-07] MEDS: ATORVASTATIN 20 MG TAB PO SCH (22:11)
[2019-01-08] VITALS (48 sets, daily range): BP systolic 54–105; BP diastolic 19–41
[2019-01-08] MEDS: ALBUTEROL SULF 2.5 MG/0.5ML(0.5%) NEB SOLN NEB SCH ×2 (00:06→08:44)
[2019-01-08] MEDS: IPRATROPIUM BROM 0.5 MG/2.5ML INH SOL NEB SCH ×2 (00:06→08:44)
[2019-01-08] MEDS: MIDAZOLAM DRIP 50 mg/50mL 50 ML IV SCH (01:56)
[2019-01-08] MEDS: NOREPINEPHRINE 8 MG/250ML KIT 250 ML IV SCH (02:03)
[2019-01-08] MEDS: DOBUTamine 1000MCG/ML 250 ML IV SCH (02:04)
[2019-01-08 04:49] LABS: Albumin 1.5 g/dL (3.4-5.0); Magnesium 2.2 mg/dL (1.6-2.6)
[2019-01-08 04:54] LABS: BUN/Creatinine Ratio 41.4; Bilirubin, Total 0.3 mg/dL (0.2-1.0); Phosphorus 5.4 mg/dL (2.5-4.90); Total Protein 5.1 g/dL (6.4-8.2)
[2019-01-08] MEDS: FUROSEMIDE 40 MG/4 ML VIAL IV SCH (05:31)
[2019-01-08] MEDS: InsuLIN REG 1unit/0.01ml Soln (100units/ml) SC SCH ×2 (06:06)
[2019-01-08] MEDS: ACCU-CHEK COMFORT CURVE STRIP VI SCH ×2 (06:06)
[2019-01-08] MEDS: ASPirin 81 mg TAB NG SCH (09:02)
[2019-01-08] MEDS: FAMOTIDINE (10MG/ML) 2ML VL IV SCH (09:02)
[2019-01-08] MEDS ORDERED: MORPHINE SULFATE 4 MG/ML SYR/VIAL IV PRN (10:00)
[2019-01-08] MEDS ORDERED: LORazepam 2MG/ML-1ML VIAL IV PRN (10:00)
[2019-01-08] MEDS ORDERED: FLUCONAZOLE 200MG/100ML 100 ML IV SCH (10:00)
== END 2019-01-08 11:55 | disposition expired | DRG 207 ==
LOC: EDSEX 08:44 → EDBD 08:44 → ER 08:44 → TELE 08:45 → ICU WEST 13:15 → DOU IN ICU 12-30 12:58 → ICU WEST 01-06 02:25
PROVIDERS: ADMIT Internal Medicine; ATTEND Internal Medicine Cardiovascular Disease
PROC: 5A1955Z Respiratory Ventilation, Greater than 96 Consecutive Hours (ICD-10-PCS; 2018-12-22)
PROC: 0W993ZZ Drainage of Right Pleural Cavity, Percutaneous Approach (ICD-10-PCS; 2018-12-24)
PROC: 02HV33Z Insertion of Infusion Device into Superior Vena Cava, Percutaneous Approach (ICD-10-PCS; 2018-12-26)
PROC: 30233N1 Transfusion of Nonautologous Red Blood Cells into Peripheral Vein, Percutaneous Approach (ICD-10-PCS; 2018-12-28)
PROC: 02HV33Z Insertion of Infusion Device into Superior Vena Cava, Percutaneous Approach (ICD-10-PCS; 2019-01-04)
PROC: B548ZZA Ultrasonography of Superior Vena Cava, Guidance (ICD-10-PCS; 2019-01-04)
PROC: 0CJS8ZZ Inspection of Larynx, Via Natural or Artificial Opening Endoscopic (ICD-10-PCS; principal; 2019-01-06)
PROC: 0BH17EZ Insertion of Endotracheal Airway into Trachea, Via Natural or Artificial Opening (ICD-10-PCS; 2019-01-06)
PROC: 0B9P30Z Drainage of Left Pleura with Drainage Device, Percutaneous Approach (ICD-10-PCS; 2019-01-06)
PROC: 5A1945Z Respiratory Ventilation, 24-96 Consecutive Hours (ICD-10-PCS; 2019-01-06)
DX: J96.21 Acute and chronic respiratory failure with hypoxia (principal); I50.43 Acute on chronic combined systolic (congestive) and diastolic (congestive) heart failure; J18.9 Pneumonia, unspecified organism; L89.153 Pressure ulcer of sacral region, stage 3; I13.0 Hypertensive heart and chronic kidney disease with heart failure and stage 1 through stage 4 chronic kidney disease, or unspecified chronic kidney disease; J44.0 Chronic obstructive pulmonary disease with (acute) lower respiratory infection; J91.8 Pleural effusion in other conditions classified elsewhere; J98.11 Atelectasis; E46 Unspecified protein-calorie malnutrition; E87.4 Mixed disorder of acid-base balance; N18.4 Chronic kidney disease, stage 4 (severe); I42.9 Cardiomyopathy, unspecified; I27.20 Pulmonary hypertension, unspecified; I35.0 Nonrheumatic aortic (valve) stenosis; I25.10 Atherosclerotic heart disease of native coronary artery without angina pectoris; E88.09 Other disorders of plasma-protein metabolism, not elsewhere classified; E11.22 Type 2 diabetes mellitus with diabetic chronic kidney disease; E11.21 Type 2 diabetes mellitus with diabetic nephropathy; D63.8 Anemia in other chronic diseases classified elsewhere; Z96.653 Presence of artificial knee joint, bilateral; I95.9 Hypotension, unspecified; T68.XXXA Hypothermia, initial encounter; E11.649 Type 2 diabetes mellitus with hypoglycemia without coma; Z51.5 Encounter for palliative care; L89.622 Pressure ulcer of left heel, stage 2; Z85.3 Personal history of malignant neoplasm of breast; Z86.73 Personal history of transient ischemic attack (TIA), and cerebral infarction without residual deficits; Z90.710 Acquired absence of both cervix and uterus; Z87.01 Personal history of pneumonia (recurrent); Z95.0 Presence of cardiac pacemaker; Z74.01 Bed confinement status; Z95.1 Presence of aortocoronary bypass graft; Z68.28 Body mass index [BMI] 28.0-28.9, adult; Z88.8 Allergy status to other drugs, medicaments and biological substances
CPT/HCPCS: 36415; 36600; 71045; 76604; 80048; 80053; 80202; 81001; 82040; 82550; 82805; 82962; 83605; 83735; 83880; 83986; 84100; 84478; 84484; 85007; 85025; 85027; 85610; 85730; 86850; 86870; 86900; 86901; 86920; 86922; 87040; 87070; 87077; 87081; 87186; 87205; 89051; 92610; 93005; 94002; 94003; 94640; 97110; 97116; 97163; 97530; G0378; J0330; J0696; J0885; J1450; J1815; J1956; J2001; J2250; J3480; J3490; J7060; J7131